=== PATIENT | female | born 1990 | race African-American/Black ===

== ENCOUNTER 2020-06-18 00:56 | Outpatient (CLI) | payer OTHER, SELFPAY ==
[2020-06-18 18:46] LABS: SARS-CoV-2 RNA PCR Negative
== END 2020-06-18 00:57 | disposition home or self-care (01) ==
LOC: ANHCOVIDDT 00:56
PROVIDERS: PCP Internal Medicine; Visit Provider Obstetrics & Gynecology
DX: Z01.812 Encounter for preprocedural laboratory examination (principal); Z20.822 Contact with and (suspected) exposure to COVID-19
CPT/HCPCS: C9803; U0003; U0005

== ENCOUNTER 2020-06-21 02:39 | Day surgery (SDC) | payer OTHER, MEDICAID, SELFPAY ==
[2020-06-11 16:30] VITALS: BMI 30.7
[2020-06-21] VITALS (11 sets, daily range): BP systolic 113–137; BP diastolic 68–85; PULSE 62–88; RESP 12–16; TEMP 36.2–36.3; O2SAT 94–100
--- NOTE | 2020-06-21 10:51 | WPDHPUPDATE1 ---
History and Physical Update Update Date/Time: 06/21/20 10:51 History and Physical has been reviewed, including an updated exam of the patient. There are NO changes in the patient's condition. Risks, benefits, and alternatives have been discussed and questions answered. Patient agrees to proceed with procedure.
[2020-06-21] MEDS: ACETAMINOPHEN 500 MG TABLET 1000 MG PO (11:37)
[2020-06-21] MEDS: LACTATED RINGERS 1,000 ML 30 ML IV CONT ×2 (12:00→14:31)
[2020-06-21] MEDS: KETOROLAC 15 MG/ML VIAL (*BKC) IV PUSH (12:03)
--- NOTE | 2020-06-21 12:40 | P.PNAN_ITS ---
Anes - Initial Pre Proc Eval Procedure: Operation Date: 06/21/20 13:45 Proposed Procedures p Laparoscopic Bilateral Salpingectomy, Hysteroscopy with Alisia Endometrial Ablation - Lnida Ibarra MD Date/Time: 06/21/20 12:40 Surgeon: Linda Ibarra MD Pre Op Diagnosis: menorrhaghia, pelvic pain Patient Data Age: 30 Gender: F Height: 5 ft 6 in Weight: 85.2 kg Last Vital Signs Temp 97.3 F L 06/21/20 11:34 Pulse 79 06/21/20 11:34 Resp 16 06/21/20 11:34 BP 119/76 06/21/20 11:34 Pulse Ox 100 06/21/20 11:34 Allergies Allergy/AdvReac Type Severity Reaction Status Date / Time No Known Allergies Allergy Unknown Unverified 06/21/20 11:34 Home Medications Medication Instructions Recorded Confirmed Type albuterol 90 mcg INHALATION PRN PRN 06/11/20 06/11/20 History diclofenac sodium 75 mg PO DAILY 06/11/20 06/21/20 History prednisone 10 mg PO DAILY 06/11/20 06/21/20 History Patient hx anesthesia problems: none Family hx anesthesia problems: none [facility] Past Medical History Medical History (Updated 06/21/20 @ 12:37 by Kody Clinton MD) Asthma Social History Social History Smoking status: Never smoker Substance use: current Substance use type: marijuana Other substance usage details: DAILY MARIJUANA USE Living arrangements: with family Spiritual care concerns: No Anes - Eval Final PreProcedure Day of Procedure 06/21/20 12:40 Patient weight: overweight Heart: regular rate and rhythm Lungs: clear to auscultation Airway: Mallampati scale class II Neurological: alert and oriented Last oral intake: >/= 8 hours ASA classification: II Emergent: no Anesthetic plan: proceed Anesthesia type and monitoring: general ETT and standard monitoring Informed Consent: The patient's anesthetic plan and its attendant risks and benefits were discussed with the patient/family/POA. Questions were solicited and answers provided to the satisfaction of the patient/family/POA.
--- NOTE | 2020-06-21 14:24 | SUR.OPER ---
450ml ns in, 400ml ns out. aware
--- NOTE | 2020-06-21 14:30 | P.OP_ITS ---
Procedure Note - Detailed Date of procedure: 06/21/20 Pre-op diagnosis: menorrhaghia, pelvic pain Essure coils Post-op diagnosis: same Procedure performed: Laparoscopic bilateral salpingectomy with removal of Essure coils, Endometrial Ablation Description of procedure: Patient was taken the operating room. She has prepped draped in the dorsal lithotomy position after induction of general anesthesia. A 5 mm abdominal incision was made in left upper quadrant of the abdomen with scalpel. A 5 mm trocars inserted the intra-abdominal cavity under direct visualization of the scope. Pneumoperitoneum was achieved. A 5 mm periumbilical incision was made using a scalpel on the abdominal scan. A 5 mm trocar was inserted the intra-abdominal cavity under visualization of the scope. A 5 mm left lower quadrant incision was made with a scalpel a 5 mm trocar was inserted intra-abdominal cavity direct visualization the scope. Fallopian tubes were removed. This was performed using cautery and scissors and blunt dis section. Fallopian tissue taken at the left lower quadrant trocar site. The cornual tubal stump was dissected open and the coils were removed bilaterally. This was done with sharp and blunt dissection using cautery. Our attention was then turned to the endometrial ablation portion of the procedure. A speculum was placed in the vagina. The cervix was grasped with a tenaculum. The cervix was dilated to approximately 8 mm with Carter dilators. The hysteroscope was inserted. And the below findings were noted. Measurements of the cervix were taken using the uterine sound and the hysteroscope. The intrauterine cavity measurements were entered into the hand piece of the device. The device was inserted the intrauterine cavity. The array was expanded. The balloon cuff was inflated. The uterus was airtight. The initial handpiece was been it during the insertion, it did pass the safety test but failed during the ablation almost immediately. A new device was obtained and prepared. It was inserted as done previously. The energy and safety cycles within initiated. They were completed under 3 minutes. The balloon cuff was collapsed, the array was collapsed, and the device was removed the uterine cavity. the hysteroscope was reinserted and the cavity was well desiccated, it was clearly observed. Hysteroscope was withdrawn. The tenaculum was removed. The speculum was aline lisa. The patient tolerated the procedure well. She was taken to recover room in stable condition. Anesthesia: GETA Surgeon: Linda Ibarra MD Estimated blood loss (mL): 10 Drains: No Packing: No Pathology: none sent Complications: No immediate complications Condition: stable Disposition: PACU Findings: Normal female pelvic anatomy. Bilateral Essure coils, normal appearing ovaries and uterus. Uterus was enlarged to about 10 cm.
[2020-06-21] MEDS: ONDANSETRON INJ 4 MG/2 ML VIAL IV PUSH ×2 (15:39→16:23)
[2020-06-21] MEDS: SCOPOLAMINE 1.5 MG PATCH TRANSDERM (17:05)
[2020-06-21] MEDS: diphenhydrAMINE HCl INJ 50 MG/ML VIAL 12.5 MG IV PUSH ×2 (17:06→17:18)
== END 2020-06-21 17:50 | disposition home or self-care (01) ==
PROVIDERS: PCP Internal Medicine; Visit Provider Obstetrics & Gynecology
PROC: 0UDB8ZZ Extraction of Endometrium, Via Natural or Artificial Opening Endoscopic (ICD-10-PCS; CPT 58558; principal; 2020-06-21 13:45)
DX: R10.12 Left upper quadrant pain (principal); N92.0 Excessive and frequent menstruation with regular cycle; Z79.51 Long term (current) use of inhaled steroids; J45.909 Unspecified asthma, uncomplicated; F12.10 Cannabis abuse, uncomplicated
CPT/HCPCS: 58563; 58661; 88302; 88305; A9270; C9803; J1100; J1200; J1885; J2250; J2405; J2704; J2710; J3010; J7120; U0003; U0005

== ENCOUNTER → 2021-03-26 01:28 | Outpatient (CLI) | payer OTHER, MEDICAID, SELFPAY ==
[2021-03-26 11:29] LABS: Basophils Percent Auto 0.3 % (0.2-1.2); Eosinophils Absolute Auto 0.1 K/mm3 (0-0.3); Eosinophils Percent Auto 1.1 % (0-4.4); Hematocrit 39.3 % (37.0-47.0); Hemoglobin 13.1 g/dL (12.0-15.0); Immature Granulocyte Absolute 0.02 K/mm3 (0.00-0.031); Immature Granulocyte Percent A 0.3 % (0-0.5); Lymphocytes Absolute Auto 2.05 K/mm3 (0.9-3.2); Lymphocytes Percent Auto 31.1 % (18.3-44.2); Mean Corpuscular HGB Conc 33.3 g/dl (32-36); Mean Corpuscular Hemoglobin 30.1 pg (26-34); Mean Corpuscular Volume 90.3 fl (80-100); Mean Platelet Volume 10.1 fl (7.4-10.4); Monocytes Absolute Auto 0.6 K/mm3 (0.1-0.6); Monocytes Percent Auto 8.3 % (2.6-8.5); Neutrophils Absolute Auto 3.9 K/mm3 (1.3-6.7); Neutrophils Percent Auto 58.9 % (45.5-73.1); Platelet Count Result 215 k/mm3 (150-375); Red Blood Count 4.35 M/mm3 (4.2-5.4); Red Cell Distribution Width 11.9 % (11.5-14.5); White Blood Count 6.6 K/mm3 (4.5-10.0)
[2021-03-26 18:07] LABS: SARS-CoV-2 RNA PCR Negative
== END ==
PROVIDERS: PCP Internal Medicine; Visit Provider Obstetrics & Gynecology
DX: Z01.812 Encounter for preprocedural laboratory examination (principal); Z20.822 Contact with and (suspected) exposure to COVID-19; N92.0 Excessive and frequent menstruation with regular cycle
CPT/HCPCS: 36415; 85025; 86850; 86900; 86901; C9803; U0003; U0005

== ENCOUNTER 2021-03-30 00:11 | Day surgery (SDC) | payer OTHER, MEDICAID, SELFPAY ==
[2021-03-23 12:53] VITALS: BMI 30.2
--- NOTE | 2021-03-29 11:13 | WPDANESEPPF ---
Anes - Initial Pre Proc Eval Procedure: Operation Date: 03/30/21 07:30 Proposed Procedures p Total Laparoscopic Hysterectomy - Linda Ibarra MD Date/Time: 03/29/21 11:13 Surgeon: Linda Ibarra MD Pre Op Diagnosis: Menorrhagia Patient Data Age: 30 Gender: F Height: 1.68 m Weight: 85 kg Allergies Allergy/AdvReac Type Severity Reaction Status Date / Time No Known Allergies Allergy Unknown Unverified 06/21/20 11:34 Home Medications Medication Instructions Recorded Confirmed Type albuterol 90 mcg INHALATION PRN PRN 06/11/20 03/23/21 History diclofenac sodium 75 mg PO DAILY 06/11/20 03/23/21 History Patient hx anesthesia problems: none Family hx anesthesia problems: none Results Review: All pre-operative results and documents have been reviewed as part of the pre-operative evaluation. [facility] Past Medical History Medical History (Updated 03/29/21 @ 11:14 by Wayne Suárez MD) Asthma Obesity Social History Social History Smoking status: Never smoker Substance use: current Substance use type: marijuana Other substance usage details: DAILY MARIJUANA USE Last use: 03/23/21 Spiritual care concerns: No Anes - Eval Final PreProcedure Day of Procedure 03/29/21 11:13 Patient weight: obese Heart: regular rate and rhythm Lungs: clear to auscultation and normal air movement Airway: Mallampati scale class II Neurological: alert and oriented Last oral intake: >/= 8 hours ASA classification: II Emergent: no Anesthetic plan: proceed Anesthesia type and monitoring: general ETT Results Review: All pre-operative results and documents have been reviewed as part of the pre-operative evaluation. Informed Consent: The patient's anesthetic plan and its attendant risks and benefits were discussed with the patient/family/POA. Questions were solicited and answers provided to the satisfaction of the patient/family/POA.
[2021-03-30] VITALS (10 sets, daily range): BP systolic 107–124; BP diastolic 67–85; PULSE 59–86; RESP 16–22; TEMP 36.3–36.7; O2SAT 94–100; BMI 30.7
[2021-03-30] MEDS: LACTATED RINGERS 1,000 ML 30 ML IV CONT ×2 (06:38→09:49)
[2021-03-30] MEDS: KETOROLAC 15 MG/ML VIAL (*BKC) IV PUSH (06:39)
[2021-03-30] MEDS: ACETAMINOPHEN 500 MG TABLET 1000 MG PO (06:39)
--- NOTE | 2021-03-30 07:13 | WPDHPUPDATE1 ---
History and Physical Update Update Date/Time: 03/30/21 07:13 History and Physical has been reviewed, including an updated exam of the patient. There are NO changes in the patient's condition. Risks, benefits, and alternatives have been discussed and questions answered. Patient agrees to proceed with procedure.
[2021-03-30] MEDS: ceFAZolin 2 GM/D5W 50 ML 2 GM/50 ML BAG IVPB (07:30)
--- NOTE | 2021-03-30 10:09 | W.PM.PROC2 ---
Procedure Note - Detailed Date of Procedure 03/30/21 Pre-op Diagnosis Menorrhagia Post-op Diagnosis same Procedure Performed Total laparoscopic hysterectomy Surgeon Linda Ibarra MD Anesthesia general Indications Severe menometrorrhagia Findings enlarged uterus, normal appearing ovaries Description of Procedure This patient was taken to the operating room. She was prepped and draped in the dorsal lithotomy position after induction of general anesthesia. A 5 mm skin incision was made in the left upper quadrant the abdomen. A 5 mm trocar was inserted into the intrauterine cavity under direct visualization of the scope. Pneumoperitoneum was achieved. A left lower quadrant 11 mm incision was made with scalpel. An 11 mm trocar was inserted into the anterior abdominal cavity under direct visualization the scope. A 5 mm infraumbilical incision was made with a scalpel and a 5 mm trocar was inserted the intra-abdominal cavity under direct visualization of the scope. The uterine manipulator and Coke per were placed. This was done with a speculum. The speculum was placed. The cervix was grasped with a tenaculum. The stay sutures were placed at 3 and 9:00 a.m.. The stay sutures of 0 Vicryl were brought through the appropriately sized Teresa cup. The tip of the MAGALYS manipulator was placed in the intrauterine cavity. The cup was slid into place around the cervix and into the fornices. It was locked into place. The sutures were then wrapped around the handle and tied under tension. Bilateral ureteral lysis was performed. This was done from the pelvic brim down to the uterine artery. This was done with careful dissection using sharp and blunt dissection. In a stepwise fashion along the lateral aspects of the uterus the suspensory ligament of the ovary, round ligament and broad ligaments were cauterized transected down to the level of the uterine arteries in a stepwise fashion. A bladder flap was created as the bladder was moved distally to the end of the cervix and over the Teresa cup. The bilateral uterine arteries were cauterized and transected. Colpotomy was then performed. In a circumferential fashion the vagina was transected using unipolar cautery. The incision was made down on the Teresa. The uterus and cervix were taken out through the vagina. A pneumo occluder was placed in the vagina. The vaginal cuff was closed with a 0 V lock suture. The pelvis was irrigated with copious amounts antibiotic irrigation. The ureters were again examined and found to be intact and flowing freely under the uterine arteries into the bladder. The bladder was intact. It was examined directly. The vagina was irrigated with Betadine solution after removal of the Pneumo occluder. The patient was taken to recovery room. She was stable condition. Sponge lap and needle counts were correct x2. Estimated Blood Loss -100.0 Urine Output -800.0 Drains Yes Packing No Pathology yes Complications No immediate complications Condition stable Disposition floor
[2021-03-30] MEDS: ONDANSETRON INJ 4 MG/2 ML VIAL IV PUSH (14:27)
[2021-03-30] MEDS: DEXTROSE 5%/0.45% SOD CHL 1,000 ML 125 ML IV CONT ×2 (14:30→19:28)
[2021-03-30] MEDS: KETOROLAC 30 MG/ML VIAL (*BKC) IV PUSH (14:30)
[2021-03-30] MEDS: HYDROcodone/acetaminophen (*CRX) 10-325 MG TABLET 1 TAB PO (17:51)
[2021-03-30] MEDS: IBUPROFEN 600 MG TABLET PO (20:08)
[2021-03-31 00:09] VITALS: BP 118/67; PULSE 88; RESP 18; TEMP 36.6; O2SAT 100
[2021-03-31] MEDS: IBUPROFEN 600 MG TABLET PO (03:44)
[2021-03-31] MEDS: HYDROcodone/acetaminophen (*CRX) 5-325 MG TABLET 1 TAB PO (03:45)
[2021-03-31 03:57] VITALS: BP 123/86; PULSE 72; RESP 18; TEMP 36.6; O2SAT 100
[2021-03-31 07:00] VITALS: BP 132/68; PULSE 91; RESP 18; TEMP 37.2; O2SAT 100
--- NOTE | 2021-03-31 08:26 | PM.GYNPNOP ---
COMPENSATION MANAGER - A/P Postoperative Procedures: Procedures Operation Date: 03/30/21 07:30 Actual Procedure Side Surgeon p Total Laparoscopic Hysterectomy Not Applicable Linda Ibarra MD Postoperative day: 1 Postoperative status: doing well Postoperative plan: see orders Time Spent With Patient Time: Total time spent is greater than 50% in coordination of care (as documented) at patient's floor/unit and/or counseling patient: Time with patient: less than 15 minutes COMPENSATION MANAGER- PN:Subj Post-Op Subjective Date/time seen: 03/31/21 08:26 Subjective: patient reports feeling better, patient has no complaints and pain is well controlled Exam Const: General: healthy appearing, comfortable and no acute distress Resp: Auscultation: clear to auscultation bilaterally, no rales, no rhonchi and no wheezes Cardio: Rate: regular rate Heart sounds: no click, no murmurs and no rubs GI: Inspection: non-distended Auscultation: normal bowel sounds Extrem: General: normal to inspection, no pedal edema and no calf tenderness COMPENSATION MANAGER - PN: Obj Data Vital Signs Vital Signs: Vital Signs - 24 hr 03/30/21 09:49 03/30/21 10:00 03/30/21 10:15 Temperature 97.8 F Pulse Rate 77 59 L 67 Respiratory Rate 22 H 20 17 Blood Pressure 110/74 111/83 107/71 Pulse Oximetry 99 100 94 03/30/21 10:30 03/30/21 10:45 03/30/21 11:00 Temperature Pulse Rate 71 73 79 Respiratory Rate 18 18 18 Blood Pressure 119/85 111/71 108/67 Pulse Oximetry 94 100 100 03/30/21 11:30 03/30/21 17:00 03/30/21 19:45 Temperature 98.1 F 97.8 F Pulse Rate 79 86 73 Respiratory Rate 18 16 18 Blood Pressure 111/72 124/76 Pulse Oximetry 100 99 100 03/31/21 00:09 03/31/21 03:57 Temperature 98 F 97.8 F Pulse Rate 88 72 Respiratory Rate 18 18 Blood Pressure 118/67 123/86 Pulse Oximetry 100 100 Intake/Output Intake/Output: Intake & Output 03/28/21 03/29/21 03/30/21 03/31/21 23:59 23:59 23:59 23:59 Intake Total 1200 400 Output Total 1999 1075 Balance -800 -675 Meds/Results Medications: Active Medications Generic Name Dose Route Start Last Admin Trade Name Freq PRN Reason Stop Dose Admin Hydrocodone Bitart/Acetaminophen 1 tab 03/30/21 11:03 03/31/21 03:45 Hydrocodone/Acetaminophen (*Crx) 5-325 Mg Tablet PO 1 tab Q3H PRN Administration Pain Rated 5 or Less Hydrocodone Bitart/Acetaminophen 1 tab 03/30/21 11:03 03/30/21 17:51 Hydrocodone/Acetaminophen (*Crx) 10-325 Mg Tablet PO 1 tab Q3H PRN Administration Pain Rated 6 or Greater Albuterol 1 puff 03/30/21 11:24 Albuterol Sulfate (*Sp) Aerosol 1 Puff INHALATION PRN PRN Shortness Of Breath Dextrose/Sodium Chloride 1,000 mls @ 125 mls/hr 03/30/21 11:03 03/30/21 19:28 Dextrose 5% Sodium Chloride 0.45% IV CONT 125 mls/hr .Q8H KEVIN Administration Ibuprofen 600 mg 03/30/21 11:03 03/31/21 03:44 Ibuprofen 600 Mg Tablet PO 600 mg Q6H PRN Administration Cramping Ketorolac Tromethamine 30 mg 03/30/21 11:03 03/30/21 14:30 Ketorolac 30 Mg/Ml Vial (*Bkc) IV PUSH 04/04/21 11:02 30 mg Q6H PRN Administration Pain Rated 4-6 Naloxone HCl 0.1 mg 03/30/21 11:03 Naloxone Hcl 0.4 Mg/Ml Vial IV PUSH Q2M PRN Respiratory rate less than 10 Ondansetron HCl 4 mg 03/30/21 11:03 03/30/21 14:27 Ondansetron Inj 4 Mg/2 Ml Vial IV PUSH 4 mg Q6H PRN Administration Nausea And Vomiting
== END 2021-03-31 12:15 | disposition home or self-care (01) ==
LOC: ANHSURGERY 05:51 → ANHOB2 03-31 08:28 → ANHSURGERY 03-31 12:34 → ANHOB2 03-31 12:34
PROVIDERS: PCP Internal Medicine; Visit Provider Obstetrics & Gynecology
PROC: 0UT9FZZ Resection of Uterus, Via Natural or Artificial Opening With Percutaneous Endoscopic Assistance (ICD-10-PCS; CPT 58570; principal; 2021-03-30 07:30)
DX: N92.0 Excessive and frequent menstruation with regular cycle (principal); N73.6 Female pelvic peritoneal adhesions (postinfective); N85.2 Hypertrophy of uterus; Z90.79 Acquired absence of other genital organ(s); J45.909 Unspecified asthma, uncomplicated; E66.9 Obesity, unspecified; Z68.30 Body mass index [BMI] 30.0-30.9, adult; Z79.51 Long term (current) use of inhaled steroids; Z20.822 Contact with and (suspected) exposure to COVID-19
CPT/HCPCS: 58570; 36415; 85025; 86850; 86900; 86901; 88307; 99199; A9270; C9803; J0330; J0690; J1170; J1885; J2250; J2270; J2405; J2704; J7120; U0003; U0005

== ENCOUNTER 2021-08-26 22:55 | Emergency (ER) | payer OTHER, MEDICAID, SELFPAY ==
--- NOTE | ~2021-08-26 | CT_ITS ---
EXAMINATION: CT brain wo con DATE: 08/27/2021 00:38 INDICATION: Head injury TECHNIQUE: Computed tomography (CT) of the head was performed without intravenous contrast. Sagittal and coronal reconstructions were performed. The mA was adjusted according to patient size. Iterative reconstruction technique was employed. The dose-length product was 605.33 mGy-cm. COMPARISON: None FINDINGS: No fracture. No acute intracranial hemorrhage, acute infarction or abnormal extra axial fluid collect ion. Ventricles are normal and symmetric. No mass/mass effect. The orbits, paranasal sinuses and mast oid air cells are normal. IMPRESSION: 1. Normal head CT. Reviewed, dictated and finalized at location A. IMPRESSION: 1. Normal head CT.
--- NOTE | ~2021-08-26 | CT_ITS ---
EXAMINATION: 1. CT facial & cervical spine wo DATE: 08/27/2021 00:39 INDICATION: Head injury post fall TECHNIQUE: 1. Computed tomography (CT) of the maxillofacial region and of the cervical spine were performed with out intravenous contrast. Sagittal and coronal reconstructions of both regions were obtained. Automat ed exposure control and iterative reconstruction technique were employed. The dose-length product was 455.64 mGy-cm. COMPARISON: None. FINDINGS: Maxillofacial CT: Negligible step-off along the suture at the right nasal bone without overlying soft tissue swelling s uggesting this is chronic. No maxillofacial fractures. Orbits are normal. Mastoid air cells, middle e ar cavities and paranasal sinuses are clear. Soft tissue swelling and shallow skin laceration at the right side of the lower lip. Cervical spine CT: Straightening of the normal cervical lordosis which is likely positional. Vertebral body and disc hei ghts are normal. Cervical facet and uncovertebral joints are normal. Mild facet osteoarthritis in the upper thoracic spine. No central canal or neural foraminal stenosis. Slice airway and apices of lung s are clear. Cervical soft tissues are unremarkable. IMPRESSION: 1. Likely chronic minimal step-off along the suture at the right nasal bone without overlying soft ti ssue swelling to suggest acute injury. No maxillofacial fractures. 2. Likely positional straightening of the normal cervical lordosis. Otherwise normal cervical spine. Reviewed, dictated and finalized at location A. IMPRESSION: 1. Likely chronic minimal step-off along the suture at the right nasal bone wit hout overlying soft tissue swelling to suggest acute injury. No maxillofacial f ractures. 2. Likely positional straightening of the normal cervical lordosis. Otherwise n ormal cervical spine.
[2021-08-26 22:57] VITALS: BP 121/67; PULSE 88; RESP 18; TEMP 35.8; O2SAT 97
--- NOTE | 2021-08-27 00:04 | ED.WOUNDLAC ---
HPI - Wound/Laceration General Chief Complaint: Wound/Laceration Stated Complaint: needs stitches Time Seen by Provider: 08/26/21 23:46 History of Present Illness HPI narrative: 31-year-old female presents to emergency room complaints of lower lip laceration. Patient states that she was drinking this evening, went outside vomit and then proceeded to pass out. Patient states that she struck her head on the ground. Patient also complains of a right facial pain. Related Data Home Medications Medication Instructions Recorded Confirmed albuterol 90 mcg INHALATION PRN PRN 06/11/20 03/30/21 diclofenac sodium 75 mg PO DAILY 06/11/20 03/30/21 Allergies Allergy/AdvReac Type Severity Reaction Status Date / Time No Known Allergies Allergy Unknown Verified 08/26/21 23:00 Review of Systems Review of Systems: CONSTITUTIONAL: Denies fever, chills, or sweats. EYES: Denies visual changes, redness, or discharge. ENT: Denies rhinorrhea, congestion, sore throat, or otalgia. CARDIOVASCULAR: Denies chest pain, palpitations, or edema. RESPIRATORY: Denies cough or dyspnea. GASTROINTESTINAL: Denies abdominal pain, nausea, vomiting, or diarrhea. GENITOURINARY: Denies dysuria or hematuria. SKIN: Laceration to lower lip MUSCULOSKELETAL: Reports pain to right side of face NEUROLOGIC: Denies headache, numbness, dizziness, or weakness. PSYCHIATRIC: Denies anxiety or depression. PMFSH Past Medical History Medical History Asthma Obesity Social History Social History Smoking status: Never smoker Substance use: current Substance use type: marijuana Other substance usage details: DAILY MARIJUANA USE Last use: 03/23/21 Spiritual care concerns: No Exam Narrative: GENERAL: Well-appearing, well-nourished, and in no acute distress. HEAD: Normocephalic, tenderness to the right zygoma EYES: PERRLA and EOMI. ENT: Nares clear, no rhinorrhea or epistaxis. Mucous membranes moist. NECK: Supple. No adenopathy or masses. CHEST: Clear to auscultation. No respiratory distress. No wheezes rales or rhonchi HEART: Regular rate and rhythm. No murmur heard. Normal peripheral pulses. ABDOMEN: Soft, nontender, nondistended, normal active bowel sounds. EXTREMITIES: Normal range of motion. No edema. SKIN: Warm, dry, no rash. x2 1 cm lacerations to the lower lip NEURO: No focal deficits. Alert and oriented x3. PSYCH: Normal mood and affect. Course Vital Signs Vital signs: Vital Signs Temperature 35.8 C L 08/26/21 22:57 Pulse Rate 88 08/26/21 22:57 Respiratory Rate 18 08/26/21 22:57 Blood Pressure 121/67 08/26/21 22:57 Pulse Oximetry 97 08/26/21 22:57 Temperature 35.8 C L 08/26/21 22:57 Pulse Rate 88 08/26/21 22:57 Respiratory Rate 18 08/26/21 22:57 Blood Pressure 121/67 08/26/21 22:57 Pulse Oximetry 97 08/26/21 22:57 Procedures Laceration Laceration 1: Date: 08/27/21 Time: 00:53 Site: lip Size (cm): 1 Description: linear Depth: simple, single layer Local Anesthetic: lidocaine 1% and with epi Amount of anesthesia used (mL): 1 ====== Skin Level ====== Skin layer closed with: nylon Size (cm): 6-0 Number of sutures: 2 Technique: simple, interrupted ====== Subcutaneous Layer ====== ====== Muscle Layer ====== ====== Tendon Layer ====== Laceration 2: Date: 08/27/21 Time: 00:54 Site: lip Size (cm): 1 Description: linear Local Anesthetic: lidocaine 1% and with epi Amount of anesthesia used (mL): 1 ====== Skin Level ====== Skin layer closed with: nylon Size (cm): 6-0 Number of sutures: 2 ====== Subcutaneous Layer ====== ====== Muscle Layer ====== ====== Tendon Layer ====== MDM - Wound/Laceration
[2021-08-27 02:03] VITALS: BP 113/62; PULSE 73; RESP 14; O2SAT 97
== END 2021-08-27 02:04 | disposition home or self-care (01) ==
PROVIDERS: Emergency Provider Nurse Practitioner Family; PCP Internal Medicine
DX: S01.511A Laceration without foreign body of lip, initial encounter (principal); S02.2XXA Fracture of nasal bones, initial encounter for closed fracture; J45.909 Unspecified asthma, uncomplicated; E66.9 Obesity, unspecified; Z68.30 Body mass index [BMI] 30.0-30.9, adult; W18.39XA Other fall on same level, initial encounter
CPT/HCPCS: 12011; 70450; 70486; 72125; 99284

== ENCOUNTER 2025-05-04 08:33 | Outpatient (CLI) | payer OTHER, SELFPAY ==
--- NOTE | 2025-05-04 | S_PTH ---
PATIENT: Milagros Herbert LOC: [facility] U#:[id number] AGE/SX: 35/F ROOM: RE05/04/[address]: Adolph Moore MD : 1990 BED: DIS: 05/04/2025 SPEC #: [id number] RECD: 05/05/25 08:49 STATUS: ENRRIQUE REQ #: [id number] BENOIT: 05/04/25 00:[address]: Adolph Moore DEPT: [facility] Surgical RECD BY: Evelyne Dyole ENTERED: 05/05/25 08:49 SP TYPE: Surgical OTHR DR: Van WongMD Tissues: A - Gastric Biopsy B - Gastric Biopsy Procedures: Hematoxylin and Eosin Stain Gross and Microscopic Level 4
--- OUTSIDE RECORDS SUMMARY | 2025-05-05 08:42 | XMS_ITS | Clinical Summary ---
Author Organization [facility] Address [address] [place] [address] Care Team Providers Care Padder Cushion Name Role Phone Unavailable Primary Care Provider Unavailabl e Source Comments [facility],non-owned Affiliates and Associated Physician Practices is amultiple site organization consisting of ambulatory clinics and hospital sitesin [place], [place], [place] and [place]. This disclosure is being madepursuant to the Care Everywhere program and may not contain all information available regarding this patient. Last updated 18.[facility] Allergies No known active allergies Encounters Date Type Department Care Team Description 03/31/2025 11:54 AM CDT - 03/31/2025 1:29 PM CDT Emergency [facility] EMERGENC[facility]PARTMENT [address] [place] [id number] Discharge Disposition: Left Against Medical Advice/Discontinued Care 03/31/2025 Travel from Last 3 Months Social History Tobacco Use Types Packs/Day Years Used Date Smoking Tobacco: Never Assessed Comments Unknown Sex and Gender Information Value Date Recorded Sex Assigned at Not on file Legal Sex Female 6:30 PM SAP SECURITY CONSULTANT Gender Identity Not on file Sexual Orientation [...] file Group ID:Not on file Type:Medicaid Address: [address]
--- OUTSIDE RECORDS SUMMARY | 2025-05-05 08:42 | XMS_ITS | Clinical Summary ---
Author Organization [facility] [place] Address [address] [place] [address] Care Team Providers Care Roller Print Tender Name Role Phone Van Wong MD Primary Care Provider [phone] Olga Zendejas ROUGH ROUNDER MACHINE Unavailable Allergies No known active allergies Medications diclofenac [...] 05/10/2020 Assessment & Plan (05/10/2020 9:40 AM CARTON MARKER MACHINE): Patient provides a 9 month history of [...] on file Legal Sex Female 2:19 AM CARTON MARKER MACHINE Gender Identity Not on file Sexual Orientation [...] patient's age to complete this topic Insurance [facility] H[facility]/PPO Address: [address] [place], [place] [id number] [employer] [facility] CHOICE PLUS [facility] HMO/PPO Address: [id number] [place], [place] [phone] Care Teams Roller Print Tender Relationship Specialty Start Date End Date Van Wong MD PCP - General Internal Medicine 04/05/20 Olga Zendejas NP [address] [place] [address] Nurse Practitioner Obstetrics and Gynecology 12/19/24
--- OUTSIDE RECORDS SUMMARY | 2025-05-05 08:42 | XMS_ITS | Clinical Summary ---
Author Organization [facility] Address [address] [place] [address] Care Team Providers Care Wire Machine Cutter Name Role Phone Van Wong MD Primary Care Provider [phone] Allergies No known active allergies Medications No known medications Encounters Date Type Department Care Team Description 04/05/2025 11:29 AM IT ARCHITECTURE CONSULTANT - 04/05/2025 12:33 PM IT ARCHITECTURE CONSULTANT Emergency [facility] [place] [address] Baldo Lorenzo, GLEN Blood In Stool Discharge Disposition: Home or Self Care (Routine Discharge) 04/05/2025 Travel from Last 3 Months Social History Tobacco Use Types Packs/Day Years Used Date Smoking Tobacco: Never Smokeless Tobacco: Never Tobacco Cessation:Counseling Given: Not Answered Comments Unknown Sex and Gender Information Value Date Recorded Sex Assigned at Female 04/05/2025 11:29 AM IT ARCHITECTURE CONSULTANT Legal Sex Female 7:05 PM CDT Gender Identity Not on file Sexual Orientation Not on file Last Filed Vital Signs Vital Sign Reading Time Taken Comments Blood Pressure 129/96 04/05/2025 11:28 AM IT ARCHITECTURE CONSULTANT Pulse 86 04/05/2025 11:28 AM IT ARCHITECTURE CONSULTANT Temperature 36.6 C (97.9 F) 04/05/2025 11:28 AM IT ARCHITECTURE CONSULTANT Respiratory Rate 16 04/05/2025 11:28 AM IT ARCHITECTURE CONSULTANT Oxygen Saturation 98% 04/05/2025 11:28 AM IT ARCHITECTURE CONSULTANT Inhaled Oxygen Concentration - - Weight 90.7 kg (200 lb) 04/05/2025 11:28 AM IT ARCHITECTURE CONSULTANT Height 167.6 cm (5' 6) 04/05/2025 11:28 AM IT ARCHITECTURE CONSULTANT Body Mass Index 32.28 04/05/2025 11:28 AM IT ARCHITECTURE CONSULTANT Plan of Treatment Health Maintenance Due Date [...] BLOOD FECAL DIAG STAT 04/05/2025 11:37 AM IT ARCHITECTURE CONSULTANT HC BASIC METABOLIC PANEL STAT 04/05/2025 11:37 AM IT ARCHITECTURE CONSULTANT HC CBC AUTO W/AUTO DIFF STAT 04/05/2025 11:37 AM IT ARCHITECTURE CONSULTANT from Last 3 Months Results * OCCULT BLOOD, FECES (04/05/2025 11:37 AM IT ARCHITECTURE CONSULTANT) OCCULT BLOOD FECAL NEGATIVE NEGATIVE 04/05/2025 12:17 PM IT ARCHITECTURE CONSULTANT [facility] STOOL SPECIMEN / Unknown 04/05/2025 11:37 AM IT ARCHITECTURE CONSULTANT us Baldo Lorenzo UPHOLSTERY MECHANIC BODY FLUIDS AND STOOLS ORDERAB LES Final Result [facility] [address] [place] [address], [place] [phone] * (ABNORMAL) BASIC METABOLIC PANEL (04/05/2025 11:37 AM [facility]) [facility] GLUCOSE 99 70 - 99 MG/DL 04/05/2025 12:11 PM [facility] BUN 11 7 - 18 MG/DL 04/05/2025 12:11 PM [facility] CREATININE S/P/B 0.78 0.55 - 1.02 MG/DL 04/05/2025 12:11 PM [facility] SODIUM S/P/B 138 136 - 145 MMOL/L 04/05/2025 12:11 PM [facility] POTASSIUM S/P/B 3.9 3.5 - 5.1 MMOL/L 04/05/2025 12:11 PM [facility] CHLORIDE S/P/B 107 97 - 115 MMOL/L 04/05/2025 12:11 PM [facility] CO2 29.7 21 - 32 MMOL/L 04/05/2025 12:11 PM [facility] CALCIUM S/P/B 9.3 8.5 - 10.1 MG/DL 04/05/2025 12:11 PM [facility] ANION GAP 1.3(L) 2 - 10 MMOL/L 04/05/2025 12:11 PM [facility] BUN CREATININE RATIO 14.0 6 - 26 04/05/2025 12:11 PM [facility] GFR ESTIMATE >90 >90 ML/MIN/1.7 3 M2 04/05/2025 12:11 PM [facility] Comment: NOTE: eGFR is not calculated for patients <18 years of age or gender unknown. This is an estimated GFR calculation using the new CKD EPI creatinine equation without race and so does not require a correction factor for race. This estimated GFR should not be used for calculating drug doses. 04/05/2025 11:3 7 AM IT ARCHITECTURE CONSULTANT Nael Mccormick PA-C LABORATORY Final Resul t [facility] [address] [place] [address], * CBC W/DIFF AUTOMATED (04/05/2025 11:37 AM IT ARCHITECTURE CONSULTANT) WBC 6.40 4.5 - 11.0 x10'3/uL 04/05/2025 11:49 AM [facility] RBC 4.51 4.20 - 5.40 x10'6/uL 04/05/2025 11:49 AM [facility] HGB 13.4 12.0 - 16.0 G/DL 04/05/2025 11:49 AM [facility] HCT 39.3 38.0 - 48.0 % 04/05/2025 11:49 AM [facility] MCV 87.1 81.0 - 99.0 FL 04/05/2025 11:49 AM [facility] MCH 29.7 27.0 - 31.0 PG 04/05/2025 11:49 AM [facility] MCHC 34.1 32.0 - 36.0 G/DL 04/05/2025 11:49 AM [facility] RDW 11.8 11.5 - 14.5 % 04/05/2025 11:49 AM [facility] PLT 226 130 - 400 x10'3/uL 04/05/2025 11:49 AM [facility] MPV 10.1 9.3 - 12.2 FL 04/05/2025 11:49 AM [facility] DIFFERENTIAL TYPE AUTOMATED DIFFERENTIAL 04/05/2025 11:49 AM [facility] NEUTROPHILS % 56.4 % 04/05/2025 11:49 AM [facility] LYMPHOCYTES % 34.8 % 04/05/2025 11:49 AM [facility] MONOCYTES % 7.7 % 04/05/2025 11:49 AM [facility] EOSINOPHILS 0.6 % 04/05/2025 11:49 AM [facility] BASOPHILS 0.2 % 04/05/2025 11:49 AM [facility] IMMATURE GRANS % 0.3 % 04/05/20 11:49 AM [facility] ABS. NEUTROPHILS 3.61 1.80 - 7.70 x10'3/uL 04/05/2025 11:49 AM [facility] ABS. LYMPHOCYTES 2.23 1.00 - 4.80 x10'3/uL 04/05/2025 11:49 AM [facility] ABS. MONOCYTES 0.49 0.24 - 0.86 x10'3/uL 04/05/2025 11:49 AM [facility] ABS. EOSINOPHILS 0.04 0.04 - 0.36 x10'3/uL 04/05/2025 11:49 AM [facility] ABS. BASOPHILS 0.01 0.01 - 0.08 x10'3/uL 04/05/2025 11:49 AM [facility] ABS. IMMATURE GRANULOCYTES 0.02 0.00 - 0.49 x10'3/uL 04/05/2025 11:49 AM [facility] 04/05/2025 11:3 7 AM IT ARCHITECTURE CONSULTANT us Nael Mccormick PA-C LABORATORY Final Resul t [facility] [address] [place] [address], [place] [phone] from Last 3 Months Insurance [facility] Care Teams Wire Machine Cutter Relationship Specialty Start Date End Date Van Wong MD [address] [place] [address] PCP - General INTERNAL MEDICINE 04/05/25
--- OUTSIDE RECORDS SUMMARY | 2025-05-05 08:42 | XMS_ITS | Data Portability ---
Author Organization [place] - [facility] [place], Main Office Address [address] [place] [address] Care Team Providers Care Line Palletizer Name Role Phone SAMANTHA WONG Primary Care Provider SAMANTHA WONG Referring Provider [phone] Assessment Encounter Date Assessment Date Assessment LastModified by Organization Details LastModified Time 08/29/2022 08/29/2022 Patient returns shoulder pain left. She has had pain in both shoulders the pain has returned again of the left shoulder unfortunately she has never got quite better she is weak in abduction external rotation is pain with overhead motion has failed conservative treatment she has tried medicine therapy cortisone exercise time. At this point I think she would benefit from MRI scan to rule out any rotator cuff pathology I will see her back after that is done I reinjected her per her request with 20 mg Kenalog 4 cc 1% lidocaine in the subacromial space of the left shoulder. [email or web address] Not available 08/29/2022 16:10:56 09/07/2022 09/07/2022 Patient returns shoulder pain left. She has an MRI scan that demonstrates straits potentially a labral tear. I reviewed the MRI report and the pictures with the patient in detail comparing the right and left shoulders as well. We will concern is the fact the head looks posteriorly located on the glenoid I think she has some instability there. She has had pain and instability of both shoulders. I think at this point her options are to live with that other option would be opinion to see whether arthroscopic intervention debridement her stabilization of the labrum would be helpful. I will ask Dr. Faye to take a look and see what he thinks. She has failed conservative treatment today medicine therapy cortisone exercise time both shoulders. [email or web address] Not available 09/07/2022 11:21:59 09/11/2022 09/11/2022 32-year-old patient presents today with left shoulder pain. When she was 12 years old she had a dislocation but did not have any issues afterwards. About 4 years ago she began having pain on the left side without new injury. She states that pain is typically constant but hurts worse at night. In the past she has tried physical therapy and cortisone injection. Her last injection was 2 weeks ago. She states that it helps some but she still feels pain. She also occasionally has pain in the right shoulder that is not as bad as her left. She currently works as a high school french teacher. She is right-handed. Review of systems per patient questionnaire Imaging: MRI of the left shoulder this shows a posterior labral tear. Also some rotator cuff tendinitis. No fracture or dislocation. Preserved joint space. MRI of right shoulder showed some rotator cuff tearing. Physical exam: No tenderness to palpitation. Range of motion 140/40/upper lumbar. She has 4 in 5 strength with rotator cuff testing, negative belly press. Positive Jobes. Positive Obriens. Negative Neer, Cifuentes. Negative Speed, Yergason's. Positive apprehension. Neurovascular intact. Today we discussed treatment options for her left shoulder. She does not feel like she is ready to take the surgical route at this time. She states she is not done physical therapy since last year and would like to try that again. We will place an order for physical therapy of bilateral shoulders. We encouraged her to continue to take anti-inflammator y medications. We will see her back after physical therapy to check her progress. She is in agreement with this plan. [email or web address] Not available 09/11/2022 12:16:38 Plan of Treatment Reminders Order Date Submit Date Provider Last Modified By Organization Details Last Modified Time Details Appointments New Patient 15 2025 02:30P Mik Gutierrez MD Not available Not available Not available Lab None recorded. Referral physical therapist referral - Please call pt to schedule for north shoulder. Thanks 2022 023 [email or web address] 1 [facility], [address] [place], [address], 10/20/2022 08:48:20 Procedures injection /aspirati on joint/bur sa (PROC) - in office procedure , administe red by provider 2022 023 [email or web address] In-Office Order, Internal Use Only DO Not Attach Compendium DO Not Attach Compendium, Do Not Delete/merge, [id number] 08/29/2022 15:41:23 Surgeries None recorded. Imaging XR, shoulder 2022 023 [email or web address] [facility], [address] [facility] [address], [place], [address], 08/29/2022 16:17:58 MRI, shoulder, w/o contrast 2022 023 [facility], [address], [place], [address], 09/07/2022 08:57:27 Medication Orders Kenalog 10 mg/mL suspensio n for injection [address] [id number], [address], [place], [id number], 08/29/2022 15:52:12 ropivacai ne (PF) 5 mg/mL (0.5 %) injection solution [address] [id number], [address], [place], [id number], 08/29/2022 15:52:12 diclofena c sodium 75 mg tablet,de layed release 2022 023 [place] [address] [address] [id number], [address], [place], [id number], 08/29/2022 16:09:55 Patient TargetsNo targets recorded. Patient InstructionsNo instructions recorded. Reason for Referral Physical Therapist Referral for Bilateral shoulder joint pain North shoulder Please call pt to schedule for north shoulder. Thanks Referring Physician: Arielle Horvath, Orthopedic Surgery, Encounter Date: 09/11/2022 Results Created Date Observation Date Name Description Value Unit Range Abnormal Flag Note LastModifiedBy Organization Detail LastModifiedTime 04/04/2004/04/2025 CBC/C OMPLE TE BLD COUNT W/DIF F white blood cells 6.4 x10'3 /uL 4.2-10 .8 Not Available [facility] (Lab) [address] [place], [address], 04/04/2025 13:23:39 04/04/20 25 04/04/2025 CBC/C OMPLE TE BLD COUNT W/DIF F red blood cells 4.53 x10'6 /uL 4.10-5 .80 Not Available [facility] (Lab) [address] [place], [address], 04/04/2025 13:23:39 04/04/20 25 04/04/2025 CBC/C OMPLE TE BLD COUNT W/DIF F hemoglobin 13.6 g/dL 13.2-1 7.0 Not Available [facility] (Lab) [address] [place], [address], 04/04/2025 13:23:39 04/04/20 25 04/04/2025 CBC/C OMPLE TE BLD COUNT W/DIF F hematocrit 40.1 % 39.3-5 0.0 Not Available [facility] (Lab) [address] [place], [address], 04/04/2025 13:23:39 04/04/20 25 04/04/2025 CBC/C OMPLE TE BLD COUNT W/DIF F mean red cell volume 88.5 fL 80.0-9 7.0 Not Available [facility] (Lab) [address] [place], [address], 04/04/2025 13:23:39 04/04/20 25 04/04/2025 CBC/C OMPLE TE BLD COUNT W/DIF F mean red cell hemoglobin 30.0 pg 27.0-3 3.0 Not Available [facility] (Lab) [address] [place], [address], 04/04/2025 13:23:39 04/04/20 25 04/04/2025 CBC/C OMPLE TE BLD COUNT W/DIF F mean RBC HGB concentratio n 33.9 g/dL 31.0-3 6.0 Not Available [facility] (Lab) [address] [place], [address], 04/04/2025 13:23:39 04/04/20 25 04/04/2025 CBC/C OMPLE TE BLD COUNT W/DIF F red cell distribution width 11.7 % 11.8-1 5.5 low Not Available [facility] (Lab) [address] [place], [address], 04/04/2025 13:23:39 04/04/20 25 04/04/2025 CBC/C OMPLE TE BLD COUNT W/DIF F platelets 228 x10'3 /uL 150-40 0 Not Available [facility] (Lab) [address] [place], [address], 04/04/2025 13:23:39 04/04/20 25 04/04/2025 CBC/C OMPLE TE BLD COUNT W/DIF F mean platelet volume 9.7 fL 9.0-12 .4 Not Available [facility] (Lab) [address] [place], [address], 04/04/2025 13:23:39 04/04/20 25 04/04/2025 CBC/C OMPLE TE BLD COUNT W/DIF F neutrophils 56.2 % 39.0-7 2.0 Not Available [facility] (Lab) [address] [place], [address], 04/04/2025 13:23:39 11/06/23 2404/04/2025 CBC/C OMPLE TE BLD COUNT W/DIF F lymphocytes 35.0 % 16.0-4 7.0 Not Available [facility] (Lab) [address] [place], [address], 04/04/2025 13:23:39 04/04/20 25 04/04/2025 CBC/C OMPLE TE BLD COUNT W/DIF F monocytes 7.2 % 5.0-12 .0 Not Available [facility] (Lab) [address] [place], [address], 04/04/2025 13:23:39 04/04/20 25 04/04/2025 CBC/C OMPLE TE BLD COUNT W/DIF F eosinophils 0.8 % 1.0-7. 0 low Not Available [facility] (Lab) [address] [place], [address], 04/04/2025 13:23:39 04/04/20 25 04/04/2025 CBC/C OMPLE TE BLD COUNT W/DIF F basophils 0.5 % 0.0-2. 0 Not Available [facility] (Lab) [address] [place], [address], 04/04/2025 13:23:39 04/04/20 25 04/04/2025 CBC/C OMPLE TE BLD COUNT W/DIF F immature granulocytes 0.3 % 0.00-0 .50 Not Available [facility] (Lab) [address] [place], [address], 04/04/2025 13:23:39 04/04/20 25 04/04/2025 CBC/C OMPLE TE BLD COUNT W/DIF F neutrophils, absolute count 3.57 x10'3 /uL 1.5-8. 0 Not Available [facility] (Lab) [address] [place], [address], 04/04/2025 13:23:39 04/04/20 25 04/04/2025 CBC/C OMPLE TE BLD COUNT W/DIF F lymphocytes, absolute count 2.22 x10'3 /uL 1.07-3 .43 Not Available [facility] (Lab) [address] [place], [address], 04/04/2025 13:23:39 04/04/20 25 04/04/2025 CBC/C OMPLE TE BLD COUNT W/DIF F monocytes, absolute count 0.46 x10'3 /uL 0.29-0 .99 Not Available [facility] (Lab) [address] [place], [address], 04/04/2025 13:23:39 04/04/20 25 04/04/2025 CBC/C OMPLE TE BLD COUNT W/DIF F eosinophils, absolute count 0.05 x10'3 /uL 0.02-0 .53 Not Available [facility] (Lab) [address] [place], [address], 04/04/2025 13:23:39 04/04/20 25 04/04/2025 CBC/C OMPLE TE BLD COUNT W/DIF F basophils, absolute count 0.03 x10'3 /uL 0.01-0 .08 Not Available [facility] (Lab) [address] [place], [address], 04/04/2025 13:23:39 04/04/20 25 04/04/2025 CBC/C OMPLE TE BLD COUNT W/DIF F immature granulocytes ,absolute 0.02 x10'3 /uL 0.00-0 .05 Not Available [facility] (Lab) [address] [place], [address], 04/04/2025 13:23:39 04/04/20 25 04/04/2025 CBC/C OMPLE TE BLD COUNT W/DIF F nucleated red blood cells 0.0 % -0 Not Available [facility] (Lab) [address] [place], [address], 04/04/2025 13:23:39 04/04/20 25 04/04/2025 CBC/C OMPLE TE BLD COUNT W/DIF F NRBC# 0.00 x10'3 /uL Not Available [facility] (Lab) [address] [place], [address], 04/04/2025 13:23:39 04/04/20 25 04/04/2025 COMPR EHENS CAROLE METAB OLIC PANEL sodium 137 mmol/ L 137-14 5 Not Available [facility] (Lab) [address] [place], [address], 04/04/2025 13:57:36 04/04/20 25 04/04/2025 COMPR EHENS CAROLE METAB OLIC PANEL potassium 4.3 mmol/ L 3.5-5. 1 Not Available [facility] (Lab) [address] [place], [address], 04/04/2025 13:57:36 04/04/20 25 04/04/2025 COMPR EHENS CAROLE METAB OLIC PANEL chloride 104 mmol/ L 98-107 Not Available [facility] (Lab) [address] [place], [address], 04/04/2025 13:57:36 04/04/20 25 04/04/2025 COMPR EHENS CAROLE METAB OLIC PANEL carbon dioxide 28 mmol/ L 22-30 Not Available [facility] (Lab) [address] [place], [address], 04/04/2025 13:57:36 04/04/20 25 04/04/2025 COMPR EHENS CAROLE METAB OLIC PANEL anion gap 9.3 mmol/ L 14-22 low Not Available [facility] (Lab) [address] [place], [address], 04/04/2025 13:57:36 04/04/20 25 04/04/2025 COMPR EHENS CAROLE METAB OLIC PANEL glucose 103 mg/dL 70-99 high Not Available [facility] (Lab) [address] [place], [address], 04/04/2025 13:57:36 04/04/20 25 04/04/2025 COMPR EHENS CAROLE METAB OLIC PANEL BUN 10 mg/dL 8-19 Not Available [facility] (Lab) [address] [place], [address], 04/04/2025 13:57:36 04/04/20 25 04/04/2025 COMPR EHENS CAROLE METAB OLIC PANEL creatinine 0.81 mg/dL 0.66-1 .25 Not Available [facility] (Lab) [address] [place], [address], 04/04/2025 13:57:36 04/04/20 25 04/04/2025 COMPR EHENS CAROLE METAB OLIC PANEL GFR >60 Refer ence Range : [place] ge GFR Healt hy Adult : >60 mL/mi n/1.7 3 m2 Chron ic Kidne y Disea se: 15-60 mL/mi n/1.7 3 m2 Kidne y Failu re: <15/m L/min /1.73 m2 www.n iddk. nih.g ov The MDRD study equat ion has not been valid ated in child sae <18 years of age; pregn ant women ; the elder ly >85 years of age; or in some racia l or ethni c subgr oups, such as [facility] nics. Outsi de the valid ated sharonda eters , estim ated GFR is less accur ate, requi ring clini ruy judgm ent on a case- by-ca se basis . Clini ruy inter preta tion for other races and ages must be made by the clini janett. The MDRD study equat ion has not been valid ated for the evalu ation of serum creat inine relat ed to nutri hermila l statu s or medic ation usage . For perso ns <18 years of age, a pedia tric GFR calcu lator is avail able on the [facility] websi te: https ://barbi angel.guillermo burrows.o eloisa/pr ofess ional s/kdo qi/gf r_cal culat or Not Available [facility] (Lab) [address] [place], [address], 04/04/2025 13:57:36 04/04/20 25 04/04/2025 COMPR EHENS CAROLE METAB OLIC PANEL alkaline phosphatase 58 U/L 38-126 Not Available [facility] (Lab) [address] [place], [address], 04/04/2025 13:57:36 04/04/2004/04/2025 COMPR EHENS CAROLE METAB OLIC PANEL alanine aminotransfe rase 12 U/L 0-35 Not Available [facility] (Lab) [address] [place], [address], 04/04/2025 13:57:36 04/04/20 25 04/04/2025 COMPR EHENS CAROLE METAB OLIC PANEL aspartate aminotransfe rase 18 U/L 15-37 Not Available [facility] (Lab) [address] [place], [address], 04/04/2025 13:57:36 04/04/20 25 04/04/2025 COMPR EHENS CAROLE METAB OLIC PANEL bilirubin, total 0.60 mg/dL 0.20-1 .30 Not Available [facility] (Lab) [address] [place], [address], 04/04/2025 13:57:36 04/04/20 25 04/04/2025 COMPR EHENS CAROLE METAB OLIC PANEL calcium 9.8 mg/dL 8.4-10 .2 Not Available [facility] (Lab) [address] [place], [address], 04/04/2025 13:57:36 04/04/20 25 04/04/2025 COMPR EHENS CAROLE METAB OLIC PANEL total protein 7.4 g/dL 6.3-8. 2 Not Available [facility] (Lab) [address] [place], [address], 04/04/2025 13:57:36 04/04/20 25 04/04/2025 COMPR EHENS CAROLE METAB OLIC PANEL albumin 4.5 g/dL 3.4-5. 0 Not Available [facility] (Lab) [address] [place], [address], 04/04/2025 13:57:36 04/04/20 25 04/04/2025 COMPR EHENS CAROLE METAB OLIC PANEL globulin 2.9 g/dL 2.6-4. 2 Not Available [facility] (Lab) [address] [place], [address], 04/04/2025 13:57:36 04/04/20 25 04/04/2025 COMPR EHENS CAROLE METAB OLIC PANEL A/G ratio 1.6 ratio 1.0-2. 0 Not Available [facility] (Lab) [address] [place], [address], 04/04/2025 13:57:36 04/04/20 25 04/04/2025 LIPID PANEL cholesterol 205 mg/dL 140-19 9 high NIH ANCA NSUS RECOM MENDA TION FOR DEANA STERO L: ADULT CHILD LOW RISK: <200 <170 BORDE RLINE : <200- 239 ----- HIGH RISK: >240 >200 Not Available [facility] (Lab) [address] [place], [address], 04/04/2025 13:57:40 04/04/20 25 04/04/2025 LIPID PANEL triglyceride s 75 mg/dL 0-150 NIH ANCA NSUS REPOR T RECOM MENDA TION FOR TRIGL YCERI DARRELL: ADULT CHILD LOW RISK: <150 ----- BODER LINE: 150-1 99 ----- HIGH RISK: >200 ----- Not Available [facility] (Lab) [address] [place], [address], 04/04/2025 13:57:40 04/04/20 25 04/04/2025 LIPID PANEL HDL cholesterol 52 mg/dL 40- Not Available [facility] (Lab) [address] [place], [address], 04/04/2025 13:57:40 04/04/20 25 04/04/2025 LIPID PANEL LDL cholesterol, calculated 138 mg/dL 0-130 high NIH ANCA NSUS REPOR T RECOM MENDA TIONS FOR LDL: ADULT CHILD LOW RISK <130 <110 (OPTI MAL LDL) <100 ----- BORDE RLINE : 130-1 59 ----- HIGH RISK: >160 >130 A TRIGL YCERI DE RESUL T >400 INVAL IDATE S THE CALCU LATIO N FOR LDL FRACT IONAT ION - THE LDL RESUL T WILL NOT BE REPOR ABELARDO. Not Available [facility] (Lab) [address] [place], [address], 04/04/2025 13:57:40 04/14/20 21 XR, wrist , 3 or more view No observ ation record ed. [id number] [address], [place], [address], 08/02/2022 14:48:40 08/28/19 22 08/27/2021 CT, brain , w/o contr ast No observ ation record ed. [id number] [facility] (Imaging) [address], [place], [address], 08/02/2022 14:48:40 08/30/19 23 XR, shoul ruba No observ ation record ed. [facility] [address], [place], [address], 08/29/2022 16:11:44 09/05/19 MRI shoul ruba lt wo [facility] [address], [place] [address] Patien t Name: MILAGROS WALLACE ion #: [id number] Sex: F : 1989 Locati on: IND Attend ing Physic braden: Karol quintero Physic braden: MP BOYKIN Exam Date: 09/05/19 7:37 AM Exam Name: MRI SHOULD ER LT WO Admitt ing Diagno sis(es ): RADIOL OGY REPORT - FINAL EXAM: MRI SHOULD ER LT WO HISTOR Y: pain dimini shed range of motion COMPAR SUSY: Radiog raph 2022 TECHNI QUE: Multip lanar multis equenc e imagin g of the left should er is perfor med withou t intrav enous contra st. FINDIN GS: Osseou s:Smal l subcho ndral cystic reacti on inferi or coal cager ior aspect of the osseou s labrum . No eviden ce of a fractu re or malali gnment . Joint space: No effusi on Page 1 [facility] 2 [facility] Name[facility] MILAGROS WALLACE ion #: [id number] Sex: F : 1989 Exam Date: 09/05/19 7:37 AM Exam Name: MRI SHOULD ER LT WO Admitt ing Diagno sis(es ): Labrum :See above. Findin gs sugges tive for an inferi or coal cager ior labral tear. AC-ludivina nt:AC joint hypert rophy with mild-t o-mode rate subacr omial outlet narrow ing. Rotato r cuff:N o eviden ce of a partia l or full-t hickne ss tear Bicipi domi labral comple x:Inco mplete ly define d IMPRES ANTONELLA: See above. Create d and electr onical ly signed by: Otoniel moon MD Signed Date: 09/05/19 4:58 PM (CT) Dictat ed by: Otoniel moon MD (CT) (CT) Page [address] (Imaging) [address], [place], [address], 09/04/2022 19:38:05 09/08/19 23 09/04/2022 MRI, jazmin yeh, w/o contr ast No observ ation record ed. [email or web address] [facility] [address], [place], [address], 09/07/2022 08:57:27 Result Notes None recorded. Problems Name Problem SNOMED Code Status Onset Date Resolution Date Notes Provider Name and Address Organization Details Recorded Time Chest wall pain 264485787 Active Not Available [facility] 3 14:46:19 Chronic back pain 550503359 Active Not Available [facility] 3 14:46:19 Constipati on 71763028 Active Not Available [facility] 3 14:46:19 Gastroesop hageal reflux disease 935673342 Active Not Available [facility] 3 14:46:19 Headache 54998174 Active Not Available [facility] 3 14:46:19 Sinusitis 86504910 Active Not Available [facility] 3 14:46:19 Umbilical hernia 593838775 Active Not Available [facility] 3 14:46:20 Partial thickness rotator cuff tear 813551190 Active 2019 Not Available [facility] 3 14:46:19 Pain of left shoulder joint 7450172636349 9109 Active 2022 JENNIFER Steinberg, [place] - [facility] 3 15:20:56 Glenoid labrum tear 251838702 Active 2022 Mp Lazo MD [address], [place], [address] , [place] - [facility] 3 11:21:24 Bilateral shoulder joint pain 0791097781367 9104 Active 2022 Viri Sargent, ATC L null, [facility] [employer] [facility] 3 11:43:21 Problem Notes None recorded. Procedures Surgical History Date Name Laterality Status Provider Name and Address Organization Details Recorded Time 08/30/19 23 Ortho - Cortisone Injection completed Mp Lazo MD [address] [facility], [facility] [address], [place], [address], [facility] [employer] [facility] 08/29/2022 16:10:09 Hysterectomy completed JENNIFER Steinberg [facility] [employer] [facility] 08/29/2022 15:20:30 Imaging Results None recorded. Procedure Notes None recorded. Medical Equipment None Reported. Allergies No known drug allergies Medications Name Sig Start Date Stop Date Status Note LastModified by Organization Details LastModified Time fluconazole 100 mg tablet 10/05 completed Not Available Not Available Not Available azelastine 0.05 % eye drops 07/08 completed Not Available Not Available Not Available prednisone 10 mg tablet 10/05 completed Not Available Not Available Not Available azithromyci n 250 mg tablet use as directed 08/29 completed Not Available Not Available Not Available ibuprofen 800 mg tablet TK 1 T PO Q 6-8 H 03/14 completed Not Available Not Available Not Available Lidocaine Viscous 2 % mucosal solution SWISH AND SPIT 15ML BY MOUTH EVERY 8 HOURS NEEDED 08/29 completed Not Available Not Available Not Available fluconazole 150 mg tablet 10/05 completed Not Available Not Available Not Available hydrocodone 5 mg-acetamin ophen 325 mg tablet TAKE 1 TABLET BY MOUTH EVERY 4-6 HOURS NEEDED FOR PAIN 08/29 completed Not Available Not Available Not Available metronidazo le 0.75 % (37.5 mg/5 gram) vaginal gel 10/05 completed Not Available Not Available Not Available prednisone 10 mg tablets in a dose pack Take 1 tab by mouth, 3 times a day for 3 daysTake 1 tab by mouth 2 times a day for 2 daysTake 1 tab by mouth once a day for 1 day 10/05 completed Not Available Not Available Not Available Microgestin FE 06/23 (28) 1 mg-20 mcg (21)/75 mg (7) tablet TK 1 T PO D 10/05 completed Not Available Not Available Not Available Deep Sea Nasal 0.65 % spray aerosol Take 1 spray 3 times a day by nasal route as needed. 03/01 completed Not Available Not Available Not Available Kenalog 10 mg/mL suspension for injection Take 20 mg by injection route. 2022 active ND: 0003- 0494- 20 Not Available Not Available Not Available Nortrel 0.5/35 (28) 0.5 mg-35 mcg tablet active Not Available Not Available N ot Available cephalexin 500 mg capsule TAKE 1 CAPSULE BY MOUTH EVERY 8 HOURS FOR 7 DAYS 08/31 completed Not Available Not Available Not Available diclofenac sodium 75 mg tablet,terry yed release TAKE 1 TABLET BY MOUTH TWICE DAILY 2022 active Not Available Not Available Not Avai lable hydroxyzine HCl 25 mg tablet 10/05 completed Not Available Not Available Not Available hydrochloro thiazide 25 mg tablet Take 1 tablet every day by oral route as needed. active Not Available Not Available No t Available ergocalcife rol (vitamin D2) 1,250 mcg (50,000 unit) capsule TAKE 1 CAPSULE BY MOUTH EVERY WEEK FOR 12 WEEKS 08/29 completed Not Available Not Available Not Available diazepam 10 mg tablet 10/05 completed Not Available Not Available Not Available methylpredn isolone 4 mg tablets in a dose pack uud 07/08 completed Not Available Not Available Not Available fluticasone propionate 50 mcg/actuati on nasal spray,suspe nsion USE TWO SPRAYS IEN QPM active Not Available Not Available No t Available amoxicillin 875 mg-potassiu m clavulanate 125 mg tablet TAKE 1 TABLET BY MOUTH TWICE DAILY 08/29 completed Not Available Not Available Not Available Ventolin HFA 90 mcg/actuati on aerosol inhaler Inhale 2 puffs every 4 hours by inhalatio n route. active Not Available Not Available No t Available lidocaine (PF) 10 mg/mL (1 %) injection solution In office injection administe red by the provider 08/31 completed ND: 0409- [id number]- [id number] Not Available Not Available Not Available ropivacaine (PF) 5 mg/mL (0.5 %) injection solution Take 20 mg by injection route. 2022 active Not Available Not Available Not Avai lable ID NOW COVID-19 Test Kit TEST DIRECTED TODAY 08/29 completed Not Available Not Available Not Available Vitals Date Recorded Body height Body mass index (BMI) Body weight Provider Name and Address Organization Details Last Updated DateTime 08/29/2022 167.64 cm 29.1 kg/m2 25641.63 g Jennifer Courtney Emmanuel [employer] [facility] 08/29/2022 15:18:56 Date Recorded Body mass index (BMI) Body height Heart rate Body temperature Body weight Systolic And Diastolic Provider Name and Address Organization Details Last Updated DateTime 2 31 kg/m2 167.64 cm 78 /min 97.2 [degF] 33355.7 4 g 110/66 mm[Hg] Not Available [facility] 14:45:20 Date Recorded Body height Body mass index (BMI) Body weight Provider Name and Address Organization Details Last Updated DateTime 09/07/2022 167.64 cm 29.1 kg/m2 87546.63 g Trista Armstrong CNA [employer] [facility] [employer] [facility] 09/07/2022 10:55:28 Date Recorded Body height Body mass index (BMI) Body weight Provider Name and Address Organization Details Last Updated DateTime 09/11/2022 167.64 cm 29.1 kg/m2 72591.63 g Viri Sargent ATC L [employer] [facility] 09/11/2022 11:12:26 Date Recorded Body mass index (BMI) Body height Pain severity - 0-10 verbal numeric rating [Score] - Reported Body weight Provider Name and Address Organization Details Last Updated DateTime 04/14/2021 30.5 kg/m2 167.64 cm 9 03932.96 g Not Available [facility] 08/02/2022 14:45:22 Social History Question Answer Notes LastModified by Organizat ion Details LastModified Time Tobacco Smoking Status Never Smoker Not Available [facility] 08/02/2022 14:44:19 Do You Have An Advance Directive? No MIGRATION.76998 77143 Information not available 08/02/2022 What Is Your Level Of Caffeine Consumption? Occasional MIGRATION.92524 27683 Information not available 08/02/2022 In The 14 Days Before Symptom Onset, Have You Had Close Contact With A Laboratory-confir med COVID-19 While That Case Was Ill? No MIGRATION.47792 16991 Information not available 08/02/2022 In The 14 Days Before Symptom Onset, Have You Had Close Contact With A Person Who Is Under Investigation For COVID-19 While That Person Was Ill? No MIGRATION.50531 47643 Information not available 08/02/2022 What Type Of Diet Are You Following? REGULAR MIGRATION.75564 60849 Information not available 08/02/2022 What Is The Highest Grade Or Level Of School You Have Completed Or The Highest Degree You Have Received? [id number] MIGRATION.56529 29972 Information not available 08/02/2022 Have There Been Any Changes To Your Family Or Social Situation? No MIGRATION.80003 20210 Information not available 08/02/2022 What Is The Fluoride Status Of Your Home? Unknown MIGRATION.46509 34818 Information not available 08/02/2022 Are There Any Guns Present In Your Home? No MIGRATION.05010 66748 Information not available 08/02/2022 Do You Use Insect Repellent Routinely? No MIGRATION.44632 60621 Information not available 08/02/2022 Where Do You Live? [place] MIGRATION.04133 25277 Information not available 08/02/2022 Do You Have A Medical Power Of Triple Air Valve Tester? No MIGRATION.18985 76508 Information not available 08/02/2022 What Was The Date Of Your Most Recent Tobacco Screening? 08/31/2021 MIGRATION.94924 57093 Information not available 08/02/2022 Have You Ever Been Counseled For Unhealthy Alcohol Use? No MIGRATION.59508 84981 Information not available 08/02/2022 Do You Have Any Pets? No MIGRATION.64492 65491 Information not available 08/02/2022 What Is Your Relationship Status? Single MIGRATION.44799 11823 Information not available 08/02/2022 Do You Use Your Seat Belt Or Car Seat Routinely? Yes MIGRATION.58483 66825 Information not available 08/02/2022 Do You Have Smoke And Carbon Monoxide Detectors In Your Home? Yes MIGRATION.25061 63157 Information not available 08/02/2022 Are You Passively Exposed To Smoke? No MIGRATION.11325 91094 Information not available 08/02/2022 Are There Any Smokers In Your House? No MIGRATION.79214 81846 Information not available 08/02/2022 What Types Of Sporting Activities Do You Participate In? None MIGRATION.00281 21375 Information not available 08/02/2022 Do You Use Sunscreen Routinely? No MIGRATION.92517 33491 Information not available 08/02/2022 Has Tobacco Cessation Counseling Been Provided? No MIGRATION.92376 03038 Information not available 08/02/2022 Have You Recently Traveled Abroad? No MIGRATION.94177 65299 Information not available 08/02/2022 Do You Have Any Dietary Restrictions? No MIGRATION.19356 53109 Information not available 08/02/2022 Sex: Female Functional Status Question Answer Note LastModified by Organizat ion Details LastModified Time Do you use any illicit or recreational drugs? No MIGRATION.306854 7297 Information not available 08/02/2022 Do you or have you ever used any other forms of tobacco or nicotine? No MIGRATION.768028 9431 Information not available 08/02/2022 What is your level of alcohol consumption? 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 Occasional MIGRATION.965632 0652 Information not available 08/02/2022 Mental Status Question Answer Note LastModified by Organizat ion Details LastModified Time Do you feel stressed (tense, restless, nervous, or anxious, or unable to sleep at night)? BC2356-9 MIGRATION.[id number] 6 Information not available 08/02/2022 Family History Relationship Description Onset Age of this Age Resolved Age Notes LastModified by Organization Details LastModified Time Maternal Grandfather Hypertensive disorder Not available 2022 15:19:55 Maternal Grandmother Diabetes mellitus Not available 2022 15:20:11 Medical History Condition Response ARTHRITIS Y Gynecological HistoryNo gynecological history recorded. Obstetrics History GPAL:G 0 P 0 0 0 0 Past Encounters Encounter ID Performer Location Encounter Start Date Encounter Closed Date Diagnosis/Indication Diagnosis SNOMED-CT Code Diagnosis ICD10 Code Diagnosis IMO Codes Diagnosis Note [id number] WALDEMAR Boyer_BREANNE [address], [address] [address] 10/05/2020 00:00:00 10/05/2020 10:33:26 [id number] WALDEMAR BoyerG [facility] [address] [place] [address], [address] [address] 11/16/2020 00:00:00 11/16/2020 10:51:04 [id number] Samantha Wong MD [facility] [address] [facility], [facility] [place] [address] 04/07/2021 00:00:00 04/17/2021 12:25:41 [id number] Mp Lazo MD [facility] [place] [address] [facility] [address] [place] [address] 04/14/2021 00:00:00 04/14/2021 10:26:18 [id number] Samantha Wong MD [facility] Internal [facility] [place] [address] [facility] [address] [place] [address] 08/31/2021 00:00:00 09/02/2021 12:50:48 [id number] Mp Lazo MD [facility] [place] [address] [place] [address] 08/29/2022 15:00:28 08/29/2022 16:17:58 Pain of left shoulder joint [id number] M25.512 [id number] Mp Lazo MD [facility] [place] [address] [facility] [address] [place] [address] 09/07/2022 10:49:59 09/07/2022 12:28:37 Pain of left shoulder joint [id number] 7989718 M25.512 Glenoid labrum tear 2022 [id number] S43.432A [id number] Arielle Horvath NP [facility] [address] [place] [address], [address] [address] 09/11/2022 11:09:14 09/11/2022 11:46:40 Bilateral shoulder joint pain [id number] M25.511 M25.512 Health Concerns Section Related Observation LastModified by Organization Detai ls LastModified Time None Recorded Concern Status LastModified by Organization Details LastModified Time None Recorded Advance Directives Directive N: Payers Insurance Date Sequence Insurance Name Policy Number Policy Kohler Covered Member ID Kohler Member ID Guarantor Name 11/03/2022 1 [facility] [id number] Oseas Farooq [id number] Milagros Herbert 11/09/2023 2 [place] [facility] Milagros Herbert [id number] Milagros Herbert Notes Date Note Type Note Provider Name and Address Organization Details Recorded Time 08/29/2022 text/html ShoulderReported by PatientHPIFor associated symptoms, patient reportsweaknessandpopp ing/clickingbut reportsno numbness,no tingling,no swelling,no redness,no warmth,no ecchymosis,no catching/locking,no buckling,no grinding,no instability,no radiation down arm,no drainage,no fever,no chills,no weight loss, andno change in bowel/bladder habits. For hand dominance, patient reportsleftandright. For location, patient reportsleft,anterior, andlateral. For quality, patient reportsaching,throbbin g, andfrequent. For severity, patient reportsmoderate. For duration, patient reportscontinuous since onset. For timing, patient reportscannot identifyandchronic. For context, patient reportscannot identify. For alleviating factors, patient reportsice,rest,elevat ion, andnsaids. For aggravating factors, patient reportscarryingandthro wing. Mp Lazo MD [address], [place] [address], [place], [address], [employer] 08/29/2022 16:12:24 09/07/2022 text/html Patient returns shoulder pain left. She states the pains alternates the left 1 is worse now. She presents with an MRI scan today that demonstrates some labral tearing. Mp Lazo MD [address], [address], [place], [address], [employer] 09/07/2022 11:22:02 OBGyn Episode No OBEpisode recorded.
== END 2025-05-04 08:34 | disposition home or self-care (01) ==
LOC: ANHLAB 05-05 08:34
PROVIDERS: PCP Internal Medicine; Visit Provider Internal Medicine Gastroenterology
DX: K21.9 Gastro-esophageal reflux disease without esophagitis (principal)
CPT/HCPCS: 88305

== ENCOUNTER 2025-05-04 09:32 | Day surgery (SDC) | payer OTHER, SELFPAY ==
[2025-04-29 12:03] VITALS: BMI 31.8
[2025-05-04 09:54] VITALS: BMI 32.0
[2025-05-04 09:56] VITALS: BP 117/83; PULSE 74; RESP 16; TEMP 36.4; O2SAT 99
[2025-05-04] MEDS: LACTATED RINGERS 1,000 ML 150 ML IV CONT (10:17)
[2025-05-04] MEDS: SIMETHICONE ORAL SUSPENSION 20 MG/0.3 ML 30 ML BOTTLE 1.8 ML PO (10:17)
--- OUTSIDE RECORDS SUMMARY | 2025-05-04 10:23 | XMS_ITS | Continuity of Care Document ---
Author Organization [facility] (Adult Med) Address [address] [place] [address] Care Team Providers Care Manager Search Name Role Phone VAN WONG Primary Care Provider [phone] [facility] Automatic Drill Operator Assessment Encounter Date Assessment Date Assessment LastModified by Organization Details LastModified Time 04/03/2025 04/03/2025 She will need a colonoscopy blood work has been ordered bleeding gets worse go to the emergency room get records from previous physicians stay up-to-date on respiratory immunizations healthy lifestyle practices discussed see me 6 months [email or web address] Not available 04/05/2025 18:29:43 Plan of Treatment Reminders Order Date Submit Date Provider Last Modified By Organization Details Last Modified Time Details Appointments ANY 15 2024 02:15P Mik Wong MD Not available Not available Not available Lab lipid panel, serum 2024 025 [email or web address] [facility] (Lab), [address] [place], [address], 04/23/2025 10:03:32 CBC w/ auto diff 2024 025 [facility] (Lab), [address] [place], [address], 04/04/2025 15:42:59 CMP, serum or plasma 2024 025 [facility] (Lab), [address] [place], [address], 04/04/2025 15:42:59 Referral gastroent erologist referral 2024 [facility] - Gastroenterol [facility], [address], [address], [place], [address], 04/15/2025 10:10:32 Procedures None recorded. Surgeries None recorded. Imaging None recorded. Medication Orders albuterol sulfate HFA 90 mcg/actua tion aerosol inhaler 2024 [id number] [address], [place], [id number], 04/03/2025 14:10:42 hydrocort isone acetate 25 mg rectal supposito ry 2024 [facility][id number], [address], [place], [id number], 04/24/2025 05:02:54 Patient TargetsNo targets recorded. Patient Instructions Encounter Date Encounter Id Patient Instructions Last Modified By Organization Details Last Modified Time 04/03/2025 [id number] A healthy lifestyle: care instructions [email or web address] Not available 04/03/2025 12:49:17 Reason for Referral [facility] [employer] Referral for Rectal hemorrhage Referring Physician: Van Wong, Internal Medicine, Encounter Date: 04/03/2025 Results Created Date Observation Date Name Description Value Unit Range Abnormal Flag Note LastModifiedBy Organization Detail LastModifiedTime Result Notes None recorded. Problems Name Problem SNOMED Code Status Onset Date Resolution Date Notes Provider Name and Address Organization Details Recorded Time Rectal hemorrhage 66411028 Active ARIS Huang [facility] 12:44:10 Problem Notes None recorded. Procedures Surgical History Date Name Laterality Status Provider Name and Address Organization Details Recorded Time 03/04/20 21 Total hysterectomy completed Bailee Aguirre MA [facility] 04/03/2025 12:08:55 Imaging Results None recorded. Procedure Notes None recorded. Medical Equipment None Reported. Allergies No known drug allergies Medications Name Sig Start Date Stop Date Status Note LastModified by Organization Details LastModified Time hydrocortis one acetate 25 mg rectal suppository Insert 1 supposito ry twice a day by rectal route for 14 days. 04/24 completed Not Available Not Available Not Available albuterol sulfate HFA 90 mcg/actuati on aerosol inhaler Inhale 2 puffs every 4 hours by inhalatio n route. 2024 active Not Available Not Available Not Avai lable albuterol 90 mcg-budeson mehdi 80 mcg/actuati on HFA aerosol inhaler Inhale 2 inhalatio ns as needed by inhalatio n route. active Not Available Not Available No t Available Vitals Date Recorded Body weight Body mass index (BMI) Body height Heart rate Oxygen saturation Systolic And Diastolic Provider Name and Address Organization Details Last Updated DateTime 84783.4 9 g 30.9 kg/m2 170.18 cm 75 /min 95 % 112/76 mm[Hg] Bailee Aguirre MA [facility] 12:06:55 Social History Question Answer Notes LastModified by Organizat ion Details LastModified Time Tobacco Smoking Status Never Smoker Bailee Aguirre MA null, [facility] 04/03/2025 12:08:17 Are You Blind Or Do You Have Difficulty Seeing? No Information n ot available 04/03/2025 What Is Your Level Of Caffeine Consumption? Occasional Information not available 04/03/2025 In The 14 Days Before Symptom Onset, Have You Had Close Contact With A Laboratory-confirm ed COVID-19 While That Case Was Ill? No Information n ot available 04/03/2025 In The 14 Days Before Symptom Onset, Have You Had Close Contact With A Person Who Is Under Investigation For COVID-19 While That Person Was Ill? No Information not available 04/03/2025 Have You Been To An Area Known To Be High Risk For COVID-19? No Information not available 04/03/2025 Are You Deaf Or Do You Have Serious Difficulty Hearing? No Information not available 04/03/2025 What Was The Date Of Your Most Recent Tobacco Screening? 04/03/2025 Information not available 04/03/2025 Do You Use Your Seat Belt Or Car Seat Routinely? Yes Information not available 04/03/2025 Do You Have Smoke And Carbon Monoxide Detectors In Your Home? Yes Information not available 04/03/2025 Do You Use Sunscreen Routinely? Yes Information not available 04/03/2025 Has Tobacco Cessation Counseling Been Provided? No Information not available 04/03/2025 Sex: Female Functional Status Question Answer Note LastModified by Organizat ion Details LastModified Time Do you use any illicit or recreational drugs? No Information not available 04/03/2025 Do you or have you ever used any other forms of tobacco or nicotine? No Information not available 04/03/2025 What is your level of alcohol consumption? Occasional Information not available 04/03/2025 Are you able to care for yourself independently? Yes Information not available 04/03/2025 Mental Status None recorded. Family History Nothing Reported. Medical History Condition Response Asthma Y Gynecological HistoryNo gynecological history recorded. Obstetrics History GPAL:G 0 P 0 0 0 0 Past Encounters Encounter ID Performer Location Encounter Start Date Encounter Closed Date Diagnosis/Indication Diagnosis SNOMED-CT Code Diagnosis ICD10 Code Diagnosis IMO Codes Diagnosis Note [id number] MD Draryl Ackerman (Adult Med) [address] [place] [phone] 04/03/2025 11:45:39 04/03/2025 12:53:14 Obese class I 3354468092 78637 E66.811 E66.3 0955086639 30.9 Rectal hemorrhage 928857 02 K62.5 51762 Hemorrhoids 95823659 K64 .9 [id number] Screening for cardiovascular system disease 029371795 Z13.6 197448 Repeated prescription 18 0555159 Z76.0 183274 Mild inter mittent asthma 605519949 J45.20 8122354 Adult heal th examination 580886550 Z00.00 3388415 Health Concerns Section Related Observation LastModified by Organization Detai ls LastModified Time None Recorded Concern Status LastModified by Organization Details LastModified Time None Recorded Payers Encounter Date Sequence Insurance Name Policy Number Policy Kohler Covered Member ID Kohler Member ID Guarantor Name 04/03/2025 1 [facility] [id number] Oseas Weber [id number] Milagros Herbert 04/03/2025 2 [place] [facility] Milagros Herbert [id number] Milagros Herbert Notes Date Note Type Note Provider Name and Address Organization Details Recorded Time 04/03/2025 text/html 34-year-old establishing care she has had some rectal meaning plant painless some clots not dizzy when she stands up not fatigue meds none allergies none surgeries none family history of hypertension and rheumatoid arthritis socially does 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
--- OUTSIDE RECORDS SUMMARY | 2025-05-04 10:23 | XMS_ITS | Data Portability ---
Author Organization [facility] Estrellita Ellison Address [address] [facility] [facility] [place] [address] Care Team Providers Care Last Model Maker Name Role Phone SAMANTHA WONG Primary Care Provider [phone] [facility] Block Feeder Assessment Encounter Date Assessment Date Assessment LastModified by Organization Details LastModified Time 04/03/2025 04/03/2025 She will need a colonoscopy blood work has been ordered bleeding gets worse go to the emergency room get records from previous physicians stay up-to-date on respiratory immunizations healthy lifestyle practices discussed see me 6 months [email or web address] Not available 04/05/2025 18:29:43 Plan of Treatment Reminders Order Date Submit Date Provider Last Modified By Organization Details Last Modified Time Details Appointments ANY 15 2024 02:15P Mik Wong MD Not available Not available Not available Lab lipid panel, serum 2024 025 [email or web address] [facility] (Lab), [address] [place], [address], 04/23/2025 10:03:32 CBC w/ auto diff 2024 025 [facility] (Lab), [address] [place], [address], 04/04/2025 15:42:59 CMP, serum or plasma 2024 025 [facility] (Lab), [address] [place], [address], 04/04/2025 15:42:59 Referral gastroent erologist referral 2024 [facility] [place] - Gastroenter[facility]gy, [address], [address], [place], [address], 04/15/2025 10:10:32 Procedures None recorded. Surgeries None recorded. Imaging None recorded. Medication Orders albuterol sulfate HFA 90 mcg/actua tion aerosol inhaler 2024 [id number] [address] [place], [place], [id number], 04/03/2025 14:10:42 hydrocort isone acetate 25 mg rectal supposito ry 2024 [facility] #[id number] [place], [id number], 04/24/2025 05:02:54 Patient TargetsNo targets recorded. Patient Instructions Encounter Date Encounter Id Patient Instructions Last Modified By Organization Details Last Modified Time 04/03/2025 [id number] A healthy lifestyle: care instructions Not available 04/03/2025 12:49:17 Reason for Referral Colon Therapist Referral for Rectal hemorrhage Referring Physician: Samantha Wong, Internal Medicine, Encounter Date: 04/03/2025 Results Created Date Observation Date Name Description Value Unit Range Abnormal Flag Note LastModifiedBy Organization Detail LastModifiedTime 04/05/2004/05/2025 hemog lobin , gastr ointe hong l, stool hemoglobin, gastrointest inal, stool NEGATI VE text: negati ve Not Available Not Available 04/05/2025 13:33:51 04/05/20 25 04/05/2025 BMP, serum or plasm a glucose, qn [mass/volume ], serum or plasma 99 text: 70 - 99 mg/dL Not Available Not Available 04/05/2025 13:33:51 04/05/2004/05/2025 BMP, serum or plasm a BUN (blood urea nitrogen), serum or plasma 11 text: 7 - 18 mg/dL Not Available Not Available 04/05/2025 13:33:51 04/05/2004/05/2025 BMP, serum or plasm a creatinine, serum or plasma 0.78 text: 0.55 - 1.02 mg/dL Not Available Not Available 04/05/2025 13:33:51 04/05/2004/05/2025 BMP, serum or plasm a sodium, serum or plasma 138 text: 136 - 145 mmol/L Not Available Not Available 04/05/2025 13:33:51 04/05/2004/05/2025 BMP, serum or plasm a potassium, serum or plasma 3.9 text: 3.5 - 5.1 mmol/L Not Available Not Available 04/05/2025 13:33:51 04/05/2004/05/2025 BMP, serum or plasm a chloride, serum or plasma 107 text: 97 - 115 mmol/L Not Available Not Available 04/05/2025 13:33:51 04/05/2004/05/2025 BMP, serum or plasm a CO2, (carbon dioxide), total, serum or plasma 29.7 text: 21 - 32 mmol/L Not Available Not Available 04/05/2025 13:33:51 04/05/2004/05/2025 BMP, serum or plasm a calcium, serum or plasma 9.3 text: 8.5 - 10.1 mg/dL Not Available Not Available 04/05/2025 13:33:51 04/05/2004/05/2025 BMP, serum or plasm a anion gap, serum or plasma 1.3 text: 2 - 10 mmol/L low Not Available Not Available 04/05/2025 13:33:51 04/05/2004/05/2025 BMP, serum or plasm a BUN/creatini ne, ratio, serum 14 low: 6high: 26 Not Available Not Available 04/05/2025 13:33:51 04/05/20 25 04/05/2025 BMP, serum or plasm a glomerular filtration rate/1.73 sq M predicted, qn, creatinine based formula (CKD-epi 2020), serum or plasma or blood >90 text: >90 mL/min /1.73 M2 NOTE: eGFR is not calcu lated for patie nts <18 years of age or gende r unkno wn. This is an estim ated GFR calcu latio n using the new CKD EPI creat inine equat ion witho ut race and so does not requi re a corre ction facto r for race. This estim ated GFR shoul d not be used for calcu latin g drug doses . Not Available Not Available 04/05/2025 13:33:51 04/05/2004/05/2025 BMP, serum or plasm a lab interpretati on Abnorm al Not Available Not Available 13:33:51 04/05/20 25 04/05/2025 CBC w/ auto diff WBC, auto, blood 6.4 text: 4.5 - 11.0 x10'3/ uL Not Available Not Available 04/05/2025 13:33:51 04/05/20 25 04/05/2025 CBC w/ auto diff RBC count, blood 4.51 text: 4.20 - 5.40 x10'6/ uL Not Available Not Available 04/05/2025 13:33:51 04/05/20 25 04/05/2025 CBC w/ auto diff hemoglobin (Hb), blood 13.4 text: 12.0 - 16.0 g/dL Not Available Not Available 04/05/2025 13:33:51 04/05/20 25 04/05/2025 CBC w/ auto diff hematocrit, blood 39.3 % low: 38%hig h: 48% Not Available Not Available 04/05/2025 13:33:51 04/05/20 25 04/05/2025 CBC w/ auto diff MCV, qn (obs) 87.1 text: 81.0 - 99.0 fL Not Available Not Available 04/05/2025 13:33:51 04/05/20 25 04/05/2025 CBC w/ auto diff MCH, qn (obs) 29.7 pg low: 27pghi gh: 31pg Not Available Not Available 04/05/2025 13:33:51 04/05/20 25 04/05/2025 CBC w/ auto diff mean corpuscular hemoglobin concentratio n, qn, RBC 34.1 text: 32.0 - 36.0 g/dL Not Available Not Available 04/05/2025 13:33:51 04/05/20 25 04/05/2025 CBC w/ auto diff RDW 11.8 % low: 11.5%h igh: 14.5% Not Available Not Available 04/05/2025 13:33:51 04/05/20 25 04/05/2025 CBC w/ auto diff platelet count, blood 226 text: 130 - 400 x10'3/ uL Not Available Not Available 04/05/2025 13:33:51 04/05/20 25 04/05/2025 CBC w/ auto diff platelet mean volume, qn, blood (obs) 10.1 text: 9.3 - 12.2 fL Not Available Not Available 04/05/2025 13:33:51 04/05/2004/05/2025 CBC w/ auto diff differential cell count method, blood (obs) AUTOMA ABELARDO DIFFER ENTIAL Not Available Not Available 13:33:51 04/05/20 25 04/05/2025 CBC w/ auto diff neutrophils/ 100 leukocytes, automated, blood (obs) 56.4 % Not Available Not Available 04/05/2025 13:33:51 04/05/20 25 04/05/2025 CBC w/ auto diff lymphocytes/ 100 leukocytes, automated, blood (obs) 34.8 % Not Available Not Available 04/05/2025 13:33:51 04/05/20 25 04/05/2025 CBC w/ auto diff monocytes/10 0 leukocytes, automated, blood (obs) 7.7 % Not Available Not Available 04/05/2025 13:33:51 04/05/20 25 04/05/2025 CBC w/ auto diff eosinophils/ 100 leukocytes, automated, blood (obs) 0.6 % Not Available Not Available 04/05/2025 13:33:51 04/05/20 25 04/05/2025 CBC w/ auto diff basophils/10 0 leukocytes, automated, blood (obs) 0.2 % Not Available Not Available 04/05/2025 13:33:51 04/05/20 25 04/05/2025 CBC w/ auto diff immature granulocytes /100 leukocytes, automated, blood (obs) 0.3 % Not Available Not Available 04/05/2025 13:33:51 04/05/20 25 04/05/2025 CBC w/ auto diff neutrophils, count, blood (obs) 3.61 text: 1.80 - 7.70 x10'3/ uL Not Available Not Available 04/05/2025 13:33:51 04/05/20 25 04/05/2025 CBC w/ auto diff lymphocytes, blood (obs) 2.23 text: 1.00 - 4.80 x10'3/ uL Not Available Not Available 04/05/2025 13:33:51 04/05/20 25 04/05/2025 CBC w/ auto diff monocytes, count, blood (obs) 0.49 text: 0.24 - 0.86 x10'3/ uL Not Available Not Available 04/05/2025 13:33:51 04/05/20 25 04/05/2025 CBC w/ auto diff eosinophils, quant, blood 0.04 text: 0.04 - 0.36 x10'3/ uL Not Available Not Available 04/05/2025 13:33:51 04/05/20 25 04/05/2025 CBC w/ auto diff basophils, count, blood (obs) 0.01 text: 0.01 - 0.08 x10'3/ uL Not Available Not Available 04/05/2025 13:33:51 04/05/20 25 04/05/2025 CBC w/ auto diff immature granulocytes count, blood 0.02 text: 0.00 - 0.49 x10'3/ uL Not Available Not Available 04/05/2025 13:33:51 Result Notes None recorded. Problems Name Problem SNOMED Code Status Onset Date Resolution Date Notes Provider Name and Address Organization Details Recorded Time Rectal hemorrhage 95458899 Active 025 Brandon Martinez MA null, [facility] 12:44:10 Problem Notes None recorded. Procedures Surgical History Date Name Laterality Status Provider Name and Address Organization Details Recorded Time 03/04/20 21 Total hysterectomy completed Bailee Aguirre MA [facility] 04/03/2025 12:08:55 Imaging Results None recorded. Procedure [...] and Address Organization Details Last Updated DateTime 19052.4 9 g 30.9 kg/m2 170.18 cm 75 /min 95 % 112/76 mm[Hg] Bailee Aguirre MA [facility] 12:06:55 Social History Question Answer Notes LastModified by Organizat ion Details LastModified Time Tobacco Smoking Status Never Smoker Bailee Aguirre MA null, [place] [facility] 04/03/2025 12:08:17 Are You Blind Or Do [...] ICD10 Code Diagnosis IMO Codes Diagnosis Note [id number] aSmantha Wong MD [facility] (Adult Med) [address] [place] [phone] 04/03/2025 11:45:39 04/03/2025 12:53:14 Obese class I 1159825873 14000 E66.811 E66.3 7088733919 30.9 Rectal hemorrhage 249203 02 K62.5 67209 Hemorrhoids 47357199 K64 .9 940027694 Screening for cardiovascular system disease 254212070 Z13.6 892709 Repeated prescription 18 8150755 Z76.0 738774 Mild inter mittent asthma 937759487 J45.20 2931701 Adult heal th examination 229626824 Z00.00 4908508 Health Concerns Section Related Observation LastModified by Organization Detai ls LastModified Time None Recorded Concern Status LastModified by Organization Details LastModified Time None Recorded Advance Directives Directive None Recorded Payers Insurance Date Sequence Insurance Name Policy Number Policy Kohler Covered Member ID Kohler Member ID Guarantor Name 04/06/2025 1 [place] [id number] Oseas Weber [id number] Milagros Herbert 04/05/2025 2 [place]: [place] [employer] Milagros Herbert [id number] Milagros Herbert Notes Date Note Type Note Provider Name and Address Organization Details Recorded Time 04/03/2025 text/html 34-year-old establishing care she has had some rectal meaning plant painless some clots not dizzy when she stands up not fatigue meds none allergies none surgeries none family history of hypertension and rheumatoid arthritis socially 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, [place], [address], [facility] 04/05/2025 18:30:15 OBGyn Episode No OBEpisode recorded.
--- NOTE | 2025-05-04 10:24 | WPDANESEPPF ---
Anes - Initial Pre Proc Eval Procedure: Operation Date: 05/04/25 11:00 Proposed Procedures p EGD & Diagnostic Colonoscopy - Adolph Moore MD Date/Time: 05/04/25 10:24 Surgeon: Adolph Moore MD Pre Op Diagnosis: Unspecified abdominal pain Patient Data Age: 35 Gender: F Height: 1.68 m Weight: 90 kg Last Vital Signs Temp 97.5 F L 05/04/25 09:56 Pulse 74 05/04/25 09:56 Resp 16 05/04/25 09:56 BP 117/83 05/04/25 09:56 Pulse Ox 99 05/04/25 09:56 O2 Del Method Room Air 05/04/25 09:56 Allergies Allergy/AdvReac Type Severity Reaction Status Date / Time No Known Allergies Allergy Unknown Verified 05/04/25 09:45 Home Medications ?Medication ?Instructions ?Recorded ?Confirmed ?Type albuterol 90 mcg/actuation aerosol 90 mcg inhalation PRN PRN 06/11/20 05/04/25 History inhaler Shortness Of Breath hyoscyamine sulfate 0.125 mg 0.125 mg PO .every 6 hours PRN 04/28/25 05/04/25 Rx tablet (Levsin) abdominal pain #120 tabs Patient hx anesthesia problems: none Family hx anesthesia problems: none Results Review: All pre-operative results and documents have been reviewed as part of the pre-operative evaluation. [facility] Past Medical History Medical History Obesity Asthma Surgical History Surgical History History of hysterectomy Social History Social History Smoking status: Never smoker Alcohol intake: current Alcohol use details: occ Substance use: current Substance use type: marijuana Other substance usage details: daily Last use: 03/23/21 Lack of Transportation: No Lack of Food: Never True Current Housing: I Have Housing Concerned About Future Housing: No Difficulty Paying Gas/Electric Bills: No Difficulty Paying for Meds: No Currently Unemployed: No Education: High School Diploma/GED Difficulty w/ Childcare or Family Care: No Living arrangements: with family Spiritual care concerns: No Anes - Eval Final PreProcedure Day of Procedure 05/04/25 10:24 Heart: regular rate and rhythm Lungs: clear to auscultation Airway: Mallampati scale class II Neurological: alert and oriented Last oral intake: >/= 8 hours ASA classification: II Anesthetic plan: proceed Anesthesia type and monitoring: general Results Review: All pre-operative results and documents have been reviewed as part of the pre-operative evaluation. Informed Consent: The patient's anesthetic plan and its attendant risks and benefits were discussed with the patient/family/POA. Questions were solicited and answers provided to the satisfaction of the patient/family/POA.
--- OUTSIDE RECORDS SUMMARY | 2025-05-04 10:24 | XMS_ITS | Data Portability ---
Author Organization [facility] Address [address] [place] [address] Care Team Providers Care Project Technician Name Role Phone SAMANTHA LOZA Primary Care Provider [phone] Assessment Encounter Date Assessment Date Assessment LastModified by Organization Details LastModified Time 05/02/2021 05/02/2021 Annual gynecological exam performed. Patient will come back in a year unless there are new symptoms. Not available 05/02/2021 12:49:13 11/19/2023 11/19/2023 Annual gynecological exam performed. Patient will come back in a year unless there are new symptoms. [email or web address] Not available 11/19/2023 14:47:27 12/18/2024 12/18/2024 Annual gynecological exam performed. Patient will come back in a year unless there are new symptoms. [email or web address] Not available 12/18/2024 09:42:50 Plan of Treatment Reminders Order Date Submit Date Provider Last Modified By Organization Details Last Modified Time Details Appointments None recorded. Lab CMP, serum or plasma 2024 025 [facility] (Lab), [address], [place], [address], 5 06:51:42 CBC w/ auto diff 2024 025 [facility] (Lab), [address] [place], [address], 5 06:51:41 TSH, serum or plasma 2024 025 [facility] (Lab), [address], [place], [address], 5 06:51:43 lipid panel, blood 2024 025 [facility] (Lab), [address], [place], [address], 5 06:51:42 25-hydroxy vitamin D2 + 25-hydroxy vitamin D3, QN, serum or plasma 2024 025 [facility] (Lab), [address], [place], [address], 5 06:51:43 HbA1c (hemoglobi n A1c), blood 2024 025 [facility] (Lab), [address], [place], [address], 5 06:51:44 CBC w/ auto diff 2023 024 [facility] (Lab), [address], [place], [address], 4 04:03:28 CMP, serum or plasma 2023 024 [facility] (Lab), [address], [place], [address], 4 04:03:29 lipid panel, blood 2023 024 [facility] (Lab), [address], [place], [address], 4 04:03:29 TSH, serum or plasma 2023 024 [facility] (Lab), [address], [place], [address], 4 04:03:30 25-hydroxy vitamin D2 + 25-hydroxy vitamin D3, QN, serum or plasma 2023 024 [facility] (Lab), [address] [place], [address], 4 04:03:30 CBC w/ auto diff 2020 021 [facility] (Lab), [address], [place], [address], 1 04:33:03 CMP, serum or plasma 2020 021 [facility] (Lab), [address], [place], [address], 1 04:33:04 lipid panel, blood 2020 021 [facility] (Lab), [address], [place], [address], 1 04:33:03 TSH, serum or plasma 2020 021 [facility] (Lab), [address] [place], [address], 1 04:33:02 vitamin D, 25-hydroxy , total, serum 2020 021 [facility] (Lab), [address] [place], [address], 1 04:33:04 Referral colon & rectal surgeon referral 2024 025 SHON Yepez MD, [facility] [place], [address], 5 13:36:54 Procedures None recorded. Surgeries None recorded. Imaging None recorded. Medication Orders Diflucan 150 mg tablet 2023 024 [id number], [address], [place], [id number], 5 09:44:01 Metrogel Vaginal 0.75 % (37.5 mg/5 gram) 2023 [id number], [address], [place], [id number], 5 09:44:08 Patient TargetsNo targets recorded. Patient InstructionsNo instructions recorded. Reason for Referral Colon & Rectal Surgeon Refer ral for External hemorrhoids Referring Physician: Olga Zendejas [employer], Encounter Date: 12/18/2024 Results Created Date Observation Date Name Description Value Unit Range Abnormal Flag Note LastModifiedBy Organization Detail LastModifiedTime 05/02/20 21 05/02/2021 IMAGE GUIDE D PAP AND HPV REGAR DLESS image guided Pap, HPV regardless of Pap result SEE RESULT S BELOW CASE REPOR T: Cytol ogy Gynec ologi mavis Repor t Case: [id number] Autho cathi medina Provi ruba: Efrain Ibarra MD Colle cted: 05/02 1449 Order ing Locat ion: [place] Patho log[facility] Recei lisa: 05/03 0041 First Scree n: Jessica Smith , CT Rescr een: Blanca Barnett , BLAYNE Speci men: Scree sylwia Pap - Image d, Vagin a STATE MENT OF ADEQU ACY: Satis facto ry for evalu ation FINAL DIAGN OSIS: Negat martine for Intra epith elial Lesio n or Joni hutton (NIL) . Funga l organ isms morph ologi dillon consi stent with Wendie da spp. Elect capo peace nishi d by Blanca Barnett , BLAYNE on 2020 at 4:52 PM ----- ----- ----- ----- ----- ----- ----- ----- ----- ----- ----- ----- ----- ----- ----- ----- ----- ---- HPV RESUL TS: HPV mRNA E6/E7 : No HPV mRNA Detec camilo NOTE: This high risk HPV mRNA assay detec ts fourt een high- risk HPV types (16, 18, 31, 33, 35, 39, 45, 51, 52, 56, 58, 59, 66, 68) witho ut diffe renti ation . COMME NT: Note: This speci men was revie wed by a Cytot echno logis t and/o r Patho logis t (as indic ated in this repor t) after evalu ation using the Thinp rep Imagi ng Syste m. CLINI MAVIS INFOR MATIO N: Menst rual Statu s: LMP (if appli cable ): Clini mavis Histo ry/Pr eviou s Pap: Type of Neopl dc (if appli cable ): Signi fican t Clini mavis Findi ngs: Other Histo ry: Hormo clarisse (if appli cable ): PAP EDUCA NOLA L NOTE: The Pap Test is a scree sylwia test with an inher ent false negat martine rate. Liqui d-bas e sampl ing may decre ase, but will not elimi kali, false negat martine resul ts. A negat martine resul t does not precl ude the prese nce and/o r devel opmen t of disea se, since the prese nce of abnor mal cells in the sampl e depen ds on the locat ion of the lesio n and sampl ing techn ique. Jesus nued regul ar scree sylwia is the best metho d of cance r preve ntion . If repor camilo cytol ogic findi ng do not corre late with physi mavis and/o r histo rical findi ngs, furth er inves tigat ion is recom chidi d, as clini dillon galindo nted. Not Available [facility] (Lab) [address], [place], [address], 05/09/2021 17:55:52 05/03/20 21 05/03/2021 TSH, REFLE X FREE T4 TSH 1.23 uIU/m L 0.30-5 .33 Not Available [facility] (Lab) [address], [place], [address], 05/04/2021 04:33:02 05/03/20 21 05/03/2021 CBC W/DIF F WBC 6.8 10'3/ uL 3.6-10 .2 Not Available [facility] (Lab) [address], [place], [address], 05/04/2021 04:33:03 05/03/20 21 05/03/2021 CBC W/DIF F RBC 3.90 10'6/ uL (based on docume nted legal sex) 4.10-5 .30 low Not Available [facility] (Lab) [address], [place], [address], 05/04/2021 04:33:03 05/03/20 21 05/03/2021 CBC W/DIF F HGB 11.4 g/dL (based on docume nted legal sex) 11.9-1 5.8 low Not Available [facility] (Lab) [address], [place], [address], 05/04/2021 04:33:03 05/03/20 21 05/03/2021 CBC W/DIF F HCT 35.1 % (based on docume nted legal sex) 37.4-4 8.3 low Not Available [facility] (Lab) [address], [place], [address], 05/04/2021 04:33:03 05/03/20 21 05/03/2021 CBC W/DIF F MCV 90.0 fL 82.0-9 9.0 Not Available [facility] (Lab) [address], [place], [address], 05/04/2021 04:33:03 05/03/20 21 05/03/2021 CBC W/DIF F MCH 29.0 pg 27.0-3 3.0 Not Available [facility] (Lab) [address], [place], [address], 05/04/2021 04:33:03 05/03/20 21 05/03/2021 CBC W/DIF F MCHC 33.0 g/dL 32.0-3 6.0 Not Available [facility] (Lab) [address], [place], [address], 05/04/2021 04:33:03 05/03/20 21 05/03/2021 CBC W/DIF F RDW 12.0 % 11.0-1 5.0 Not Available [facility] (Lab) [address], [place], [address], 05/04/2021 04:33:03 05/03/20 21 05/03/2021 CBC W/DIF F plt 231 10'3/ uL 150-45 0 Not Available [facility] (Lab) [address], [place], [address], 05/04/2021 04:33:03 05/03/20 21 05/03/2021 CBC W/DIF F MPV 10.9 fL 9.8-12 .7 Not Available [facility] (Lab) [address], [place], [address], 05/04/2021 04:33:03 05/03/20 21 05/03/2021 CBC W/DIF F NRBC's 0.00 % 0 Not Available [facility] (Lab) [address], [place], [address], 05/04/2021 04:33:03 05/03/20 21 05/03/2021 CBC W/DIF F absolute NRBCs 0.0 10'3/ uL 0 Not Available [facility] (Lab) [address], [place], [address], 05/04/2021 04:33:03 05/03/20 21 05/03/2021 CBC W/DIF F neutrophils 58.0 % 37.0-7 2.0 Not Available [facility] (Lab) [address], [place], [address], 05/04/2021 04:33:03 05/03/20 21 05/03/2021 CBC W/DIF F lymphocytes 33.0 % 16.0-4 8.0 Not Available [facility] (Lab) [address], [place], [address], 05/04/2021 04:33:03 05/03/20 21 05/03/2021 CBC W/DIF F monocytes 8.0 % 4.0-14 .0 Not Available [facility] (Lab) [address], [place], [address], 05/04/2021 04:33:03 05/03/20 21 05/03/2021 CBC W/DIF F eosinophils 1.0 % 0.0-9. 0 Not Available [facility] (Lab) [address], [place], [address], 05/04/2021 04:33:03 05/03/20 21 05/03/2021 CBC W/DIF F basophils 0.0 % 0.0-2. 0 Not Available [facility] (Lab) [address], [place], [address], 05/04/2021 04:33:03 05/03/20 21 05/03/2021 CBC W/DIF F immature granulocytes 0.0 % no define d refere nce range Not Available [facility] (Lab) [address], [place], [address], 05/04/2021 04:33:03 05/03/20 21 05/03/2021 CBC W/DIF F absolute neutrophils 4.0 10'3/ uL 1.1-6. 0 Not Available [facility] (Lab) [address], [place], [address], 05/04/2021 04:33:03 05/03/20 21 05/03/2021 CBC W/DIF F absolute lymphocytes 2.2 10'3/ uL 0.7-3. 4 Not Available [facility] (Lab) [address], [place], [address], 05/04/2021 04:33:03 05/03/20 21 05/03/2021 CBC W/DIF F absolute monocytes 0.5 10'3/ uL 0.3-1. 0 Not Available [facility] (Lab) [address], [place], [address], 05/04/2021 04:33:03 05/03/20 21 05/03/2021 CBC W/DIF F absolute eosinophils 0.1 10'3/ uL 0.0-0. 6 Not Available [facility] (Lab) [address], [place], [address], 05/04/2021 04:33:03 05/03/20 21 05/03/2021 CBC W/DIF F absolute basophils 0.0 10'3/ uL 0.0-0. 1 Not Available [facility] (Lab) [address], [place], [address], 05/04/2021 04:33:03 05/03/20 21 05/03/2021 CBC W/DIF F absolute immature granulocytes 0.00 10'3/ uL 0.00-0 .10 2020 2:30 AM: P indic ates parti al resul ts on a panel have been relea sed. Addit ional resul ts will follo w. 2020 2:31 AM: This resul t has been final verif ied. No addit ional or pittman ed resul ts are expec camilo. Not Available [facility] (Lab) [address], [place], [address], 05/04/2021 04:33:03 05/03/20 21 05/03/2021 LIPID PANEL ,AMA (LDL- CALC) total cholesterol 174 mg/dL 0-[address] [facility] (Lab) [address], [place], [address], 05/04/2021 04:33:03 05/03/20 21 05/03/2021 LIPID PANEL ,AMA (LDL- CALC) triglyceride s 117 mg/dL 0.00-1 50.00 NCEP Refer ence Value s for Trigl yceri jumana: Erika l: <150 mg/dL Borde rline High: 150 - 199 mg/dL High: 200 - 499 mg/dL Very High: >/= 500 mg/dL Not Available [facility] (Lab) [address], [place], [address], 05/04/2021 04:33:03 05/03/20 21 05/03/2021 LIPID PANEL ,AMA (LDL- CALC) HDL cholesterol 51 mg/dL >[address] [facility] (Lab) [address] [place], [address], 05/04/2021 04:33:03 05/03/20 21 05/03/2021 LIPID PANEL ,AMA (LDL- CALC) LDL cholesterol 100 mg/dL 0-99 high Cutof f value s recom chidi d by the Natio nal Demetria stero l Educa tion Progr am: TAL ABLE: Demetria stero l <200 mg/dL LDL <100 mg/dL BORDE RLINE : Demetria stero l 200-2 39 mg/dL LDL 101-1 59 mg/dL HIGHE R RISK: Demetria stero l >240 mg/dL LDL >160 mg/dL , HDL <40 mg/dL Not Available [facility] (Lab) [address], [place], [address], 05/04/2021 04:33:03 05/03/20 21 05/03/2021 LIPID PANEL ,AMA (LDL- CALC) non-HDL cholesterol 123 mg/dL no refere nce range A reaso nable goal for non-H DL demetria stero l is one that is 30 mg/dL highe r than the LDL demetria stero l goal. Not Available [facility] (Lab) [address] [place], [address], 05/04/2021 04:33:03 11/30/20 21 05/03/2021 LIPID PANEL ,AMA (LDL- CALC) chol/HDL ratio 3.4 . 0.0-5. 0 Not Available [facility] (Lab) [address], [place], [address], 05/04/2021 04:33:03 05/03/20 21 05/03/2021 CMP(C OMPRE HENSI VE METAB OLIC PANEL ) sodium 140 mmol/ L 133-14 6 Not Available [facility] (Lab) [address], [place], [address], 05/04/2021 04:33:04 05/03/20 21 05/03/2021 CMP(C OMPRE HENSI VE METAB OLIC PANEL ) potassium 3.6 mmol/ L 3.5-5. 1 Not Available [facility] (Lab) [address], [place], [address], 05/04/2021 04:33:04 05/03/20 21 05/03/2021 CMP(C OMPRE HENSI VE METAB OLIC PANEL ) chloride 104 mmol/ L 98-107 Not Available [facility] (Lab) [address], [place], [address], 05/04/2021 04:33:04 05/03/20 21 05/03/2021 CMP(C OMPRE HENSI VE METAB OLIC PANEL ) carbon dioxide 29 mmol/ L 21-31 Not Available [facility] (Lab) [address] [place], [address], 05/04/2021 04:33:04 05/03/20 21 05/03/2021 CMP(C OMPRE HENSI VE METAB OLIC PANEL ) anion gap 7 mmol/ L 4-13 Not Available [facility] (Lab) [address], [place], [address], 05/04/2021 04:33:04 05/03/20 21 05/03/2021 CMP(C OMPRE HENSI VE METAB OLIC PANEL ) blood urea nitrogen 8 mg/dL 7-25 Not Available [facility] (Lab) [address], [place], [address], 05/04/2021 04:33:04 05/03/20 21 05/03/2021 CMP(C OMPRE HENSI VE METAB OLIC PANEL ) creatinine 0.80 mg/dL 0.60-1 .30 Not Available [facility] (Lab) [address], [place], [address], 05/04/2021 04:33:04 05/03/20 21 05/03/2021 CMP(C OMPRE HENSI VE METAB OLIC PANEL ) egfrcr (CKD-epi 2020) >90 mL/mi n/1.7 3_m2 >=60 Not Available [facility] (Lab) [address], [place], [address], 05/04/2021 04:33:04 05/03/20 21 05/03/2021 CMP(C OMPRE HENSI VE METAB OLIC PANEL ) calcium 9.0 mg/dL 8.3-10 .5 Not Available [facility] (Lab) [address], [place], [address], 05/04/2021 04:33:04 05/03/20 21 05/03/2021 CMP(C OMPRE HENSI VE METAB OLIC PANEL ) glucose 87 mg/dL 70-100 Not Available [facility] (Lab) [address], [place], [address], 05/04/2021 04:33:04 05/03/20 21 05/03/2021 CMP(C OMPRE HENSI VE METAB OLIC PANEL ) protein, total 6.5 g/dL 6.4-8. 3 Not Available [facility] (Lab) [address], [place], [address], 05/04/2021 04:33:04 05/03/20 21 05/03/2021 CMP(C OMPRE HENSI VE METAB OLIC PANEL ) albumin 4.0 g/dL 3.5-5. 0 Not Available [facility] (Lab) [address], [place], [address], 05/04/2021 04:33:04 05/03/20 21 05/03/2021 CMP(C OMPRE HENSI VE METAB OLIC PANEL ) ALT 8 units /L 9-43 low Not Available [facility] (Lab) [address] [place], [address], 05/04/2021 04:33:04 05/03/20 21 05/03/2021 CMP(C OMPRE HENSI VE METAB OLIC PANEL ) alkaline phosphatase 49 units /L 34-104 Not Available [facility] (Lab) [address], [place], [address], 05/04/2021 04:33:04 05/03/20 21 05/03/2021 CMP(C OMPRE HENSI VE METAB OLIC PANEL ) AST 13 units /L 13-39 Not Available [facility] (Lab) [address], [place], [address], 05/04/2021 04:33:04 05/03/20 21 05/03/2021 CMP(C OMPRE HENSI VE METAB OLIC PANEL ) bilirubin, total 0.5 mg/dL 0.2-1. 2 Not Available [facility] (Lab) [address] [place], [address], 05/04/2021 04:33:04 05/03/20 21 05/03/2021 VITAM IN D, 25-OH (TOTA L D2/D3 ) vitamin D, 25-hydroxy, total 12.3 NG/mL 30-80 low NOTE: Defic iency : <20 ng/mL Insuf ficie ncy: 20-29 ng/mL Optim um Level : 30-80 ng/mL Possi ble Toxic ity: >80 ng/mL Most patie nts with toxic ity have level s >150 ng/mL . Not Available [facility] (Lab) [address] [place], [address], 05/04/2021 04:33:04 11/19/19 24 11/19/2023 CBC W/DIF F WBC 5.7 10'3/ uL 3.5-10 .5 Not Available [facility] (Lab) [address], [place], [address], 11/20/2023 04:03:28 11/19/19 24 11/19/2023 CBC W/DIF F RBC 4.71 10'6/ uL (based on docume nted legal sex) 3.80-5 .20 Not Available [facility] (Lab) [address], [place], [address], 11/20/2023 04:03:28 11/19/19 24 11/19/2023 CBC W/DIF F HGB 13.6 g/dL (based on docume nted legal sex) 11.6-1 5.4 Not Available [facility] (Lab) [address], [place], [address], 11/20/2023 04:03:28 11/19/19 24 11/19/2023 CBC W/DIF F HCT 41.5 % (based on docume nted legal sex) 34.0-4 5.0 Not Available [facility] (Lab) [address], [place], [address], 11/20/2023 04:03:28 11/19/19 24 11/19/2023 CBC W/DIF F MCV 88.1 fL 80.0-9 9.0 Not Available [facility] (Lab) [address], [place], [address], 11/20/2023 04:03:28 11/19/19 24 11/19/2023 CBC W/DIF F MCH 28.9 pg 27.0-3 4.0 Not Available [facility] (Lab) [address], [place], [address], 11/20/2023 04:03:28 11/19/19 24 11/19/2023 CBC W/DIF F MCHC 32.8 g/dL 32.0-3 5.5 Not Available [facility] (Lab) [address], [place], [address], 11/20/2023 04:03:28 11/19/19 24 11/19/2023 CBC W/DIF F RDW 11.6 % 11.0-1 5.0 Not Available [facility] (Lab) [address], [place], [address], 11/20/2023 04:03:28 11/19/19 24 11/19/2023 CBC W/DIF F plt 220 10'3/ uL 150-40 0 Not Available [facility] (Lab) [address], [place], [address], 11/20/2023 04:03:28 11/19/19 24 11/19/2023 CBC W/DIF F MPV 10.9 fL 8.8-12 .1 Not Available [facility] (Lab) [address], [place], [address], 11/20/2023 04:03:28 11/19/19 24 11/19/2023 CBC W/DIF F NRBC's 0.0 % 0.0 Not Available [facility] (Lab) [address], [place], [address], 11/20/2023 04:03:28 11/19/19 24 11/19/2023 CBC W/DIF F absolute NRBCs 0.0 10'3/ uL no refere nce range establ ished Not Available [facility] (Lab) [address], [place], [address], 11/20/2023 04:03:28 11/19/19 24 11/19/2023 CBC W/DIF F neutrophils 51.4 % 34.0-7 3.0 Not Available [facility] (Lab) [address] [place], [address], 11/20/2023 04:03:28 11/19/19 24 11/19/2023 CBC W/DIF F lymphocytes 40.3 % 15.0-5 0.0 Not Available [facility] (Lab) [address], [place], [address], 11/20/2023 04:03:28 11/19/19 24 11/19/2023 CBC W/DIF F monocytes 7.2 % 1.0-15 .0 Not Available [facility] (Lab) [address], [place], [address], 11/20/2023 04:03:28 11/19/19 24 11/19/2023 CBC W/DIF F eosinophils 0.5 % 0.0-8. 0 Not Available [facility] (Lab) [address], [place], [address], 11/20/2023 04:03:28 11/19/19 24 11/19/2023 CBC W/DIF F basophils 0.4 % 0.0-2. 0 Not Available [facility] (Lab) [address], [place], [address], 11/20/2023 04:03:28 11/19/19 24 11/19/2023 CBC W/DIF F immature granulocytes 0.2 % no define d refere nce range Not Available [facility] (Lab) [address] [place], [address], 11/20/2023 04:03:28 11/19/19 24 11/19/2023 CBC W/DIF F absolute neutrophils 2.9 10'3/ uL 1.5-8. 0 Not Available [facility] (Lab) [address] [place], [address], 11/20/2023 04:03:28 11/19/19 24 11/19/2023 CBC W/DIF F absolute lymphocytes 2.3 10'3/ uL 1.0-4. 0 Not Available [facility] (Lab) [address], [place], [address], 11/20/2023 04:03:28 11/19/19 24 11/19/2023 CBC W/DIF F absolute monocytes 0.4 10'3/ uL 0.2-1. 0 Not Available [facility] (Lab) [address], [place], [address], 11/20/2023 04:03:28 11/19/19 24 11/19/2023 CBC W/DIF F absolute eosinophils 0.0 10'3/ uL 0.0-0. 6 Not Available [facility] (Lab) [address], [place], [address], 11/20/2023 04:03:28 11/19/19 24 11/19/2023 CBC W/DIF F absolute basophils 0.0 10'3/ uL 0.0-0. 3 Not Available [facility] (Lab) [address], [place], [address], 11/20/2023 04:03:28 11/19/19 24 11/19/2023 CBC W/DIF F absolute immature granulocytes 0.0 10'3/ uL 0.00-0 .10 2023 1:53 AM: P indic ates parti al resul ts on a panel have been relea sed. Addit ional resul ts will follo w. 2023 1:53 AM: This resul t has been final verif ied. No addit ional or pittman ed resul ts are expec camilo. Not Available [facility] (Lab) [address], [place], [address], 11/20/2023 04:03:28 11/19/19 24 11/19/2023 LIPID PANEL ,AMA (LDL- CALC) total cholesterol 179 mg/dL 0-[address] [facility] (Lab) [address], [place], [address], 11/20/2023 04:03:29 11/19/19 24 11/19/2023 LIPID PANEL ,AMA (LDL- CALC) triglyceride s 107 mg/dL 0-150 NCEP Refer ence Value s for Trigl yceri jumana: Erika l: <150 mg/dL Borde rline High: 150 - 199 mg/dL High: 200 - 499 mg/dL Very High: >/= 500 mg/dL Not Available [facility] (Lab) [address], [place], [address], 11/20/2023 04:03:29 11/19/19 24 11/19/2023 LIPID PANEL ,AMA (LDL- CALC) HDL cholesterol 53 mg/dL >[address] [facility] (Lab) [address], [place], [address], 11/20/2023 04:03:29 11/19/19 24 11/19/2023 LIPID PANEL ,AMA (LDL- CALC) LDL cholesterol 106 mg/dL 0-99 high Cutof f value s recom chidi d by the Natio nal Demetria stero l Educa tion Progr am: TAL ABLE: Demetria stero l <200 mg/dL LDL <100 mg/dL BORDE RLINE : Demetria stero l 200-2 39 mg/dL LDL 101-1 59 mg/dL HIGHE R RISK: Demetria stero l >240 mg/dL LDL >160 mg/dL , HDL <40 mg/dL Not Available [facility] (Lab) [address] [place], [address], 11/20/2023 04:03:29 11/19/19 24 11/19/2023 LIPID PANEL ,AMA (LDL- CALC) non-HDL cholesterol 126 mg/dL no refere nce range A reaso nable goal for non-H DL demetria stero l is one that is 30 mg/dL highe r than the LDL demetria stero l goal. Not Available [facility] (Lab) [address], [place], [address], 11/20/2023 04:03:29 11/19/19 24 11/19/2023 LIPID PANEL ,AMA (LDL- CALC) chol/HDL ratio 3.4 . 0.0-5. 0 On September 26, 2022, [facility] labor atorteri mohr pittman ed the equat ion for calcu latin g estim ated low-d ensit y lipop rotei n-cho leste rol (LDL- C) from the Fried dandre equat ion to the Arcelia n/Hop hollie equat ion. This new equat ion is only valid for lipid panel s with trigl yceri jumana < 400 mg/dL . Annemarie resendiz demon strat ed that this new equat ion will impro ve the accur acy of LDL-C , espec ially in scena mukherjee when LDL-C sarah ntrat ions are relat ively low (< 100 mg/dL ), trigl yceri jumana are eleva camilo, or patie nt is non-f astin g. Refer ences : - Arcelia britt, Chay Ordaz, Cesar Lanza , Jelani allen, Dayday Shore, Dayday franklin, Glenn garcia , and Woody [place] . 2013. Comp ariso n of a Novel Metho d vs the Fried dandre Equat ion for Estim ating Low-D ensit y Lipop rotei n Demetria stero l Level s from the Stand emilee Lipid Profi le. JAMESON: The Journ al of the Ameri can Medic al Assoc iatio n 310 (19): 2060- . - Amaya brown V, Keshia J, Ashley brown A, Sarbjit M, Ariela e R, Kodak brown E, [facility] RS, De SR, Arcelia britt SS. Fast ing Versu s Nonfa sting and Low-D ensit y Lipop rotei n Demetria stero l Accur acy. Circu latio n. 2017Jun 05;137 (1):1 0-19. Not Available [facility] (Lab) [address], [place], [address], 11/20/2023 04:03:29 11/19/19 24 11/19/2023 CMP(C OMPRE HENSI VE METAB OLIC PANEL ) sodium 140 mmol/ L 133-14 6 Not Available [facility] (Lab) [address], [place], [address], 11/20/2023 04:03:29 11/19/19 24 11/19/2023 CMP(C OMPRE HENSI VE METAB OLIC PANEL ) potassium 3.9 mmol/ L 3.5-5. 1 Not Available [facility] (Lab) [address], [place], [address], 11/20/2023 04:03:29 11/19/19 24 11/19/2023 CMP(C OMPRE HENSI VE METAB OLIC PANEL ) chloride 102 mmol/ L 98-107 Not Available [facility] (Lab) [address], [place], [address], 11/20/2023 04:03:29 11/19/19 24 11/19/2023 CMP(C OMPRE HENSI VE METAB OLIC PANEL ) carbon dioxide 28 mmol/ L 21-31 Not Available [facility] (Lab) [address], [place], [address], 11/20/2023 04:03:29 11/19/19 24 11/19/2023 CMP(C OMPRE HENSI VE METAB OLIC PANEL ) anion gap 10 mmol/ L 4-13 Not Available [facility] (Lab) [address] [place], [address], 11/20/2023 04:03:29 11/19/19 24 11/19/2023 CMP(C OMPRE HENSI VE METAB OLIC PANEL ) blood urea nitrogen 8 mg/dL 7-25 Not Available [facility] (Lab) [address], [place], [address], 11/20/2023 04:03:29 11/19/19 24 11/19/2023 CMP(C OMPRE HENSI VE METAB OLIC PANEL ) creatinine 0.78 mg/dL 0.60-1 .30 Not Available [facility] (Lab) [address], [place], [address], 11/20/2023 04:03:29 11/19/19 24 11/19/2023 CMP(C OMPRE HENSI VE METAB OLIC PANEL ) egfrcr (CKD-epi 2020) >90 mL/mi n/1.7 3_m2 >=60 Not Available [facility] (Lab) [address], [place], [address], 11/20/2023 04:03:29 11/19/19 24 11/19/2023 CMP(C OMPRE HENSI VE METAB OLIC PANEL ) calcium 9.3 mg/dL 8.3-10 .5 Not Available [facility] (Lab) [address], [place], [address], 11/20/2023 04:03:29 11/19/19 24 11/19/2023 CMP(C OMPRE HENSI VE METAB OLIC PANEL ) glucose 86 mg/dL 70-100 Not Available [facility] (Lab) [address], [place], [address], 11/20/2023 04:03:29 11/19/19 24 11/19/2023 CMP(C OMPRE HENSI VE METAB OLIC PANEL ) protein, total 7.1 g/dL 6.4-8. 3 Not Available [facility] (Lab) [address], [place], [address], 11/20/2023 04:03:29 11/19/19 24 11/19/2023 CMP(C OMPRE HENSI VE METAB OLIC PANEL ) albumin 4.6 g/dL 3.5-5. 0 Not Available [facility] (Lab) [address], [place], [address], 11/20/2023 04:03:29 11/19/19 24 11/19/2023 CMP(C OMPRE HENSI VE METAB OLIC PANEL ) ALT 9 units /L 9-43 Not Available [facility] (Lab) [address], [place], [address], 11/20/2023 04:03:29 11/19/19 24 11/19/2023 CMP(C OMPRE HENSI VE METAB OLIC PANEL ) alkaline phosphatase 51 units /L 34-104 Not Available [facility] (Lab) [address], [place], [address], 11/20/2023 04:03:29 11/19/19 24 11/19/2023 CMP(C OMPRE HENSI VE METAB OLIC PANEL ) AST 13 units /L 13-39 Not Available [facility] (Lab) [address], [place], [address], 11/20/2023 04:03:29 11/19/19 24 11/19/2023 CMP(C OMPRE HENSI VE METAB OLIC PANEL ) bilirubin, total 0.6 mg/dL 0.2-1. 2 Not Available [facility] (Lab) [address], [place], [address], 11/20/2023 04:03:29 11/19/19 24 11/19/2023 TSH, REFLE X FREE T4 TSH 0.89 uIU/m L 0.30-5 .33 Not Available [facility] (Lab) [address], [place], [address], 11/20/2023 04:03:30 11/19/19 24 11/19/2023 VITAM IN D, 25-OH (TOTA L D2/D3 ) vitamin D, 25-hydroxy, total 14.8 NG/mL 30.0-1 00.0 low Sugge stive of Defic iency : <20 ng/mL Sugge stive of Insuf ficie ncy: 20-29 ng/mL Sugge stive of Suffi cienc y: 30-10 0 ng/mL Sugge stive of Toxic ity: >150 ng/mL Not Available [facility] (Lab) [address], [place], [address], 11/20/2023 04:03:30 06/1711/19/2023 IMAGE GUIDE D PAP AND HPV REGAR DLESS image guided Pap, HPV regardless of Pap result SEE RESULT S BELOW CASE REPOR T: Cytol ogy Gynec ologi mavis Repor t Case: [id number] Autho cathi medina Provi ruba: Efrain Ibarra MD Colle cted: 11/18 1618 Order ing Locat ion: [place] Patho logy Recei lisa: 11/19 0821 First Scree n: Marzena Lam ret, CT Rescr een: Blanca Barnett , CT Speci men: Alley dao Pap - Image d, Cervi x STATE MENT OF ADEQU ACY: Satis facto ry for evalu ation Trans forma tion zone compo nent prese nt ----- ----- ----- ----- ----- ----- ----- ----- ----- ----- ----- ----- ----- ----- ----- ----- ----- ---- FINAL DIAGN OSIS: Negat martine for Intra epith elial Lesanay britt or Joni hutton (NIL) . Funga l organ isms morph ologi dillon consi stent with Wendie da spp. Elect capo peace nishi d by Blanca Barnett , CT on 2023 at 4:51 PM ----- ----- ----- ----- ----- ----- ----- ----- ----- ----- ----- ----- ----- ----- ----- ----- ----- ---- HPV RESUL TS: HPV mRNA E6/E7 : No HPV mRNA Detec camilo NOTE: This high risk HPV mRNA assay detec ts fourt een high- risk HPV types (16, 18, 31, 33, 35, 39, 45, 51, 52, 56, 58, 59, 66, 68) witho ut diffe renti ation . COMME NT: This speci men was revie wed by a Cytot echno logis t and/o r Patho logis t (as indic ated in this repor t) after evalu ation using the Thinp rep Imagi ng Syste m. CLINI MAVIS INFOR MATIO N: Menst rual Statu s: LMP (if appli cable ): Clini mavis Histo ry/Pr eviou s Pap: Type of Neopl dc (if appli cable ): Signi fican t Clini mavis Findi ngs: Other Histo ry: Hormo clarisse (if appli cable ): PAP EDUCA NOLA L NOTE: The Pap Test is a scree sylwia test with an inher ent false negat martine rate. Liqui d-bas ed sampl ing may decre ase, but will not elimi kali, false negat martine resul ts. A negat martine resul t does not precl ude the prese nce and/o r devel opmen t of disea se, since the prese nce of abnor mal cells in the sampl e depen ds on the locat ion of the lesio n and sampl ing techn ique. Jesus nued regul ar scree sylwia is the best metho d of cance r preve ntion . If repor camilo cytol ogic findi ng do not corre late with physi mavis and/o r histo rical findi ngs, furth er inves tigat ion is recom chidi d, as clini dillon galindo nted. Not Available [facility] (Lab) [address], [place], [address], 11/21/2023 17:56:57 12/19/1912/18/2024 CBC W/DIF F WBC 7.4 10'3/ uL 3.5-10 .5 Not Available [facility] (Lab) [address], [place], [address], 12/19/2024 06:51:41 12/19/19 25 12/18/2024 CBC W/DIF F RBC 4.65 10'6/ uL (based on docume nted legal sex) 3.80-5 .20 Not Available [facility] (Lab) [address], [place], [address], 12/19/2024 06:51:41 12/19/19 25 12/18/2024 CBC W/DIF F HGB 13.5 g/dL (based on docume nted legal sex) 11.6-1 5.4 Not Available [facility] (Lab) [address], [place], [address], 12/19/2024 06:51:41 12/19/19 25 12/18/2024 CBC W/DIF F HCT 41.2 % (based on docume nted legal sex) 34.0-4 5.0 Not Available [facility] (Lab) [address], [place], [address], 12/19/2024 06:51:41 12/19/19 25 12/18/2024 CBC W/DIF F MCV 88.6 fL 80.0-9 9.0 Not Available [facility] (Lab) [address], [place], [address], 12/19/2024 06:51:41 12/19/19 25 12/18/2024 CBC W/DIF F MCH 29.0 pg 27.0-3 4.0 Not Available [facility] (Lab) [address], [place], [address], 12/19/2024 06:51:41 12/19/19 25 12/18/2024 CBC W/DIF F MCHC 32.8 g/dL 32.0-3 5.5 Not Available [facility] (Lab) [address], [place], [address], 12/19/2024 06:51:41 12/19/19 25 12/18/2024 CBC W/DIF F RDW 11.9 % 11.0-1 5.0 Not Available [facility] (Lab) [address], [place], [address], 12/19/2024 06:51:41 12/19/19 25 12/18/2024 CBC W/DIF F plt 254 10'3/ uL 150-40 0 Not Available [facility] (Lab) [address], [place], [address], 12/19/2024 06:51:41 12/19/19 25 12/18/2024 CBC W/DIF F MPV 10.1 fL 8.8-12 .1 Not Available [facility] (Lab) [address], [place], [address], 12/19/2024 06:51:41 12/19/19 25 12/18/2024 CBC W/DIF F NRBC's 0.0 % 0.0 Not Available [facility] (Lab) [address], [place], [address], 12/19/2024 06:51:41 12/19/19 25 12/18/2024 CBC W/DIF F absolute NRBCs 0.0 10'3/ uL no refere nce range establ ished Not Available [facility] (Lab) [address], [place], [address], 12/19/2024 06:51:41 12/19/19 25 12/18/2024 CBC W/DIF F neutrophils 55.9 % 34.0-7 3.0 Not Available [facility] (Lab) [address], [place], [address], 12/19/2024 06:51:41 12/19/19 25 12/18/2024 CBC W/DIF F lymphocytes 35.6 % 15.0-5 0.0 Not Available [facility] (Lab) [address], [place], [address], 12/19/2024 06:51:41 12/19/19 25 12/18/2024 CBC W/DIF F monocytes 7.7 % 1.0-15 .0 Not Available [facility] (Lab) [address], [place], [address], 12/19/2024 06:51:41 12/19/19 25 12/18/2024 CBC W/DIF F eosinophils 0.4 % 0.0-8. 0 Not Available [facility] (Lab) [address], [place], [address], 12/19/2024 06:51:41 12/19/19 25 12/18/2024 CBC W/DIF F basophils 0.3 % 0.0-2. 0 Not Available [facility] (Lab) [address], [place], [address], 12/19/2024 06:51:41 12/19/19 25 12/18/2024 CBC W/DIF F immature granulocytes 0.1 % no define d refere nce range Immat ure Granu locyt es (IG) repre sents autom ated enume ratio n of Metam yeloc ytes, Myelo cytes and Promy elocy beverly when IG is < 5%. Blast s are not inclu ded in IG and repor camilo separ ately if prese nt. Not Available [facility] (Lab) [address], [place], [address], 12/19/2024 06:51:41 12/19/19 25 12/18/2024 CBC W/DIF F absolute neutrophils 4.2 10'3/ uL 1.5-8. 0 Not Available [facility] (Lab) [address], [place], [address], 12/19/2024 06:51:41 12/19/19 25 12/18/2024 CBC W/DIF F absolute lymphocytes 2.6 10'3/ uL 1.0-4. 0 Not Available [facility] (Lab) [address], [place], [address], 12/19/2024 06:51:41 12/19/19 25 12/18/2024 CBC W/DIF F absolute monocytes 0.6 10'3/ uL 0.2-1. 0 Not Available [facility] (Lab) [address], [place], [address], 12/19/2024 06:51:41 12/19/1912/18/2024 CBC W/DIF F absolute eosinophils 0.0 10'3/ uL 0.0-0. 6 Not Available [facility] (Lab) [address], [place], [address], 12/19/2024 06:51:41 12/19/19 25 12/18/2024 CBC W/DIF F absolute basophils 0.0 10'3/ uL 0.0-0. 3 Not Available [facility] (Lab) [address], [place], [address], 12/19/2024 06:51:41 12/19/1912/18/2024 CBC W/DIF F absolute immature granulocytes 0.0 10'3/ uL 0.00-0 .10 Refer ence range s for nonbi nary/ inter sex or unspe cifie d gende r patie nts have not been estab lishe d. [facility]as e [facility] for range s estab lishe d for cisge nder patie nts and evalu ate in the clini mavis brittni xt of the indiv idual patie nt: https :[email or web address] [email or web address] book. nm.or g/gen derx Not Available [facility] (Lab) [address], [place], [address], 12/19/2024 06:51:41 12/19/1912/18/2024 CMP(C OMPRE HENSI VE METAB OLIC PANEL ) sodium 139 mmol/ L 133-14 6 Not Available [facility] (Lab) [address], [place], [address], 12/19/2024 06:51:42 12/19/1912/18/2024 CMP(C OMPRE HENSI VE METAB OLIC PANEL ) potassium 3.9 mmol/ L 3.5-5. 1 Not Available [facility] (Lab) [address], [place], [address], 12/19/2024 06:51:42 12/19/19 25 12/18/2024 CMP(C OMPRE HENSI VE METAB OLIC PANEL ) chloride 102 mmol/ L 98-107 Not Available [facility] (Lab) [address], [place], [address], 12/19/2024 06:51:42 12/19/19 25 12/18/2024 CMP(C OMPRE HENSI VE METAB OLIC PANEL ) carbon dioxide 31 mmol/ L 21-31 Not Available [facility] (Lab) [address], [place], [address], 12/19/2024 06:51:42 12/19/19 25 12/18/2024 CMP(C OMPRE HENSI VE METAB OLIC PANEL ) anion gap 6 mmol/ L 4-13 Not Available [facility] (Lab) [address], [place], [address], 12/19/2024 06:51:42 12/19/19 25 12/18/2024 CMP(C OMPRE HENSI VE METAB OLIC PANEL ) blood urea nitrogen 7 mg/dL 7-25 Not Available [facility] (Lab) [address], [place], [address], 12/19/2024 06:51:42 12/19/19 25 12/18/2024 CMP(C OMPRE HENSI VE METAB OLIC PANEL ) creatinine 0.74 mg/dL 0.60-1 .30 Not Available [facility] (Lab) [address], [place], [address], 12/19/2024 06:51:42 12/19/19 25 12/18/2024 CMP(C OMPRE HENSI VE METAB OLIC PANEL ) egfrcr (CKD-epi 2020) >90 mL/mi n/1.7 3_m2 >=60 Not Available [facility] (Lab) [address], [place], [address], 12/19/2024 06:51:42 12/19/19 25 12/18/2024 CMP(C OMPRE HENSI VE METAB OLIC PANEL ) calcium 9.9 mg/dL 8.3-10 .5 Not Available [facility] (Lab) [address], [place], [address], 12/19/2024 06:51:42 12/19/19 25 12/18/2024 CMP(C OMPRE HENSI VE METAB OLIC PANEL ) glucose 87 mg/dL 70-100 Not Available [facility] (Lab) [address], [place], [address], 12/19/2024 06:51:42 12/19/19 25 12/18/2024 CMP(C OMPRE HENSI VE METAB OLIC PANEL ) protein, total 7.2 g/dL 6.4-8. 3 Not Available [facility] (Lab) [address], [place], [address], 12/19/2024 06:51:42 12/19/19 25 12/18/2024 CMP(C OMPRE HENSI VE METAB OLIC PANEL ) albumin 4.7 g/dL 3.5-5. 0 Not Available [facility] (Lab) [address], [place], [address], 12/19/2024 06:51:42 12/19/19 25 12/18/2024 CMP(C OMPRE HENSI VE METAB OLIC PANEL ) ALT 11 units /L 9-43 Not Available [facility] (Lab) [address], [place], [address], 12/19/2024 06:51:42 12/19/19 25 12/18/2024 CMP(C OMPRE HENSI VE METAB OLIC PANEL ) alkaline phosphatase 55 units /L 34-104 Not Available [facility] (Lab) [address], [place], [address], 12/19/2024 06:51:42 12/19/19 25 12/18/2024 CMP(C OMPRE HENSI VE METAB OLIC PANEL ) AST 13 units /L 13-39 Not Available [facility] (Lab) [address], [place], [address], 12/19/2024 06:51:42 12/19/19 25 12/18/2024 CMP(C OMPRE HENSI VE METAB OLIC PANEL ) bilirubin, total 0.7 mg/dL 0.2-1. 2 Not Available [facility] (Lab) [address] [place], [address], 12/19/2024 06:51:42 12/19/19 25 12/18/2024 LIPID PANEL ,AMA (LDL- CALC) total cholesterol 200 mg/dL 0-[address] [facility] (Lab) [address] [place], [address], 12/19/2024 06:51:42 12/19/1912/18/2024 LIPID PANEL ,AMA (LDL- CALC) triglyceride s 121 mg/dL 0-150 NCEP Refer ence Value s for Trigl yceri jumana: Erika l: <150 mg/dL Lisbeth fritz High: 150 - 199 mg/dL High: 200 - 499 mg/dL Very High: >/= 500 mg/dL Not Available [facility] (Lab) [address] [place], [address], 12/19/2024 06:51:42 12/19/1912/18/2024 LIPID PANEL ,AMA (LDL- CALC) HDL cholesterol 49 mg/dL >[address] [facility] (Lab) [address] [place], [address], 12/19/2024 06:51:42 12/19/1912/18/2024 LIPID PANEL ,AMA (LDL- CALC) LDL cholesterol 128 mg/dL 0-99 high Cutof f value s recom chidi d by the Natio nal Demetria stero l Educa tion Progr am: TAL ABLE: Demetria stero l <200 mg/dL LDL <100 mg/dL BORDE RLINE : Demetria stero l 200-2 39 mg/dL LDL 101-1 59 mg/dL HIGHE R RISK: Demetria stero l >240 mg/dL LDL >160 mg/dL , HDL <40 mg/dL Not Available [facility] (Lab) [address], [place], [address], 12/19/2024 06:51:42 12/19/1912/18/2024 LIPID PANEL ,AMA (LDL- CALC) non-HDL cholesterol 151 mg/dL no refere nce range A reaso nable goal for non-H DL demetria stero l is one that is 30 mg/dL highe r than the LDL demetria stero l goal. Not Available [facility] (Lab) [address], [place], [address], 12/19/2024 06:51:42 12/19/1912/18/2024 LIPID PANEL ,AMA (LDL- CALC) chol/HDL ratio 4.1 . 0.0-5. 0 On September 26, 2022, [facility] labor atori es pittman ed the equat ion for calcu latin g estim ated low-d ensit y lipop rotei n-cho leste rol (LDL- C) from the Fried dandre equat ion to the Arcelia balwinder/Harjeet browne equat ion. This new equat ion is only valid for lipid panel s with trigl yceri jumana < 400 mg/dL . Studi es have demon strat ed that this new equat ion will impro ve the accur acy of LDL-C , espec ially in scena mukherjee when LDL-C sarah ntrat ions are relat ively low (< 100 mg/dL ), trigl yceri jumana are eleva camilo, or patie nt is non-f astin g. Refer ences : - Chay [place], Cesar Lanza , Jelani allen, [facility], [facility], [facility] , and Woody Kc . 2013. Comp ariso n of a Novel Metho d vs the Fried dandre Equat ion for Estim ating Low-D ensit y Lipop rotei n Demetria stero l Level s from the Stand emilee Lipid Profteri melendez. JAMESON: The Journ al of the Ameri can Medic al Assoc iatio n 310 19): 2060- . - Amaya brown V, Keshia J, Ashley brown A, Sarbjit M, Ariela e R, Kodak brown E, Lucinda garcia RS, Kc SR, Arcelia n SS. Fast ing Versu s Nonfa sting and Low-D ensit y Lipop rotei n Demetria stero l Accur acy. Circu latio n. 2017Jun 05;137 (1):1 0-19. Not Available [facility] (Lab) [address], [place], [address], 12/19/2024 06:51:42 12/19/19 25 12/18/2024 TSH, REFLE X FREE T4 TSH 0.76 uIU/m L 0.30-5 .33 Not Available [facility] (Lab) [address], [place], [address], 12/19/2024 06:51:43 12/19/19 25 12/18/2024 VITAM IN D, 25-OH (TOTA L D2/D3 ) vitamin D, 25-hydroxy, total 20.3 NG/mL 30.0-1 00.0 low Sugge stive of Defic iency : <20 ng/mL Sugge stive of Insuf ficie ncy: 20-29 ng/mL Sugge stive of Suffi cienc y: 30-10 0 ng/mL Sugge stive of Toxic ity: >150 ng/mL Not Available [facility] (Lab) [address] [place], [address], 12/19/2024 06:51:43 12/19/19 25 12/18/2024 HEMOG LOBIN A1C hemoglobin A1C 5.8 % 4.0-5. 6 high The Ameri can Diabe beverly Assoc iatio n recom mends that a prima ry goal of thera py shoul d be a HBA1C of < 7% and that physi cians shoul d reeva luate the treat ment regim en in patie nts with HBA1C value s consi stent ly > 8%. <5.7% Erika l 5.7 - 6.4% Incre ased risk for diabe beverly >=6.5 % Diagn ostic of diabe beverly <7.0% Goal of thera py >8.0% Actio n sugge sted Not Available [facility] (Lab) [address], [place], [address], 12/19/2024 06:51:44 12/19/19 25 12/18/2024 IMAGE GUIDE D PAP AND HPV REGAR DLESS image guided Pap, HPV regardless of Pap result SEE RESULT S BELOW CASE REPOR T: Cytol ogy Gynec ologi mavis Repor t Case: [id number] Autho ridahlia g Provi ruba: Olga Zendejas, GLEN Colle cted: 12/18 1048 Order ing Locat ion: [place] Patho logy Recei lisa: 12/19 0130 First Scree n: Austin Rodriguez, CT Rescr een: Blanca Barnett , CT Speci men: Alley dao Pap - Image d, Vagin a STATE MENT OF ADEQU ACY: Satis facto ry for evalu ation ----- ----- ----- ----- ----- ----- ----- ----- ----- ----- ----- ----- ----- ----- ----- ----- ----- ---- FINAL DIAGN OSIS: Negat martine for Intra epith elial Janee britt or Joni hutton (NIL) . Shift in ellen sugge stive of bacte rial vagin osis. Elect capo almodovar d by Blanca Barnett , CT on 2024 at 1715 CDT ----- ----- ----- ----- ----- ----- ----- ----- ----- ----- ----- ----- ----- ----- ----- ----- ----- ---- HPV RESUL TS: HPV mRNA E6/E7 : No HPV mRNA Detec camilo NOTE: This high risk HPV mRNA assay detec ts fourt een high- risk HPV types (16, 18, 31, 33, 35, 39, 45, 51, 52, 56, 58, 59, 66, 68) witho ut diffe renti ation . COMME NT: Slide scree tiffanie adriana banuelos due to rejec tion by the Thinp rep Imagi ng Syste m. CLINI MAVIS INFOR MATIO N: Menst rual Statu s: LMP (if appli cable ): Clini mavis Histo ry/Pr eviou s Pap: Type of Neopl dc (if appli cable ): Signi fican t Clini mavis Findi ngs: Other Histo ry: Hormo clarisse (if appli cable ): PAP EDUCA NOLA L NOTE: The Pap Test is a scree sylwia test with an inher ent false negat martine rate. Liqui d-bas ed sampl ing may decre ase, but will not elimi kali, false negat martine resul ts. A negat martine resul t does not precl ude the prese nce and/o r devel opmen t of disea se, since the prese nce of abnor mal cells in the sampl e depen ds on the locat ion of the lesio n and sampl ing techn ique. Jesus nued regul ar scree sylwia is the best metho d of cance r preve ntion . If repor camilo cytol ogic findi ng do not corre late with physi mavis and/o r histo rical findi ngs, furth er inves tigat ion is recom chidi d, as mike galindo nted. Not Available [facility] (Lab) [address], [place], [address], 12/22/2024 18:20:03 Result Notes Documentation Provider Name and Address Organization Details Recorded Time Surgical Pathology Study : fu apt with Beer on 04/06/21 thor bansk [facility] 04/06/2021 18:21:42 Problems Name Problem SNOMED Code Status Onset Date Resolution Date Notes Provider Name and Address Organization Details Recorded Time Poor growth affectin g manageme nt 746791636 Completed 201002/08/2021 GROWTH POOR SGA;Prac joanne ID: 0001 [facility] 10:11:08 Disorder of amniotic cavity AND/OR membrane [id number] Completed 201002/08/2021 Unspecif ied problem associat ed with amniotic cavity and membrane s, antepart um;Pract ice ID: 0001 Arleen Herbert [facility] 10:09:05 Routine antenata l care Completed 201002/08/2021 Supervis ion of other normal pregnanc y;Practi ce ID: 0001 Arleen Herbert [facility] 10:09:51 Known OR suspecte d abnormal ity affectin g manageme nt of mother Completed 201002/08/2021 Cord Two Vessel Fetus;Pr actice ID: 0001 Arleen Herbert [facility] 10:11:16 Single live from singleto n pregnanc y [id number] Completed 201002/08/2021 Mother with single liveborn ;Practic e ID: 0001 [facility] 10:09:45 Delivery normal [id number] Completed 201002/08/2021 Normal delivery ;Practic e ID: 0001 [facility] 10:09:01 Postpart um care Completed 201002/08/2021 Routine postpart um follow-u p;Practi ce ID: 0001 Arleen Herbert [facility] 10:10:22 Educatio n Completed 201002/08/2021 Other general counseli ng and advice on contrace ptive manageme nt;Pract ice ID: 0001 Arleen farias [facility] 10:13:29 Screenin g for malignan t neoplasm of cervix Completed 201002/08/2021 Pap Smear;Pr actice ID: 0001 Arleen Herbert [facility] 10:09:48 Speciali zed medical examinat ion Completed 201002/08/2021 Routine gynecolo gical examinat ion;Prac joanne ID: 0001 Arleen Herbert [facility] 10:10:16 Irregula r periods [id number] Completed 201002/08/2021 Irregula r menstrua l cycle;Pr actice ID: 0001 Arleen farias [facility] 10:11:28 Amenorrh ea [id number] Completed 201002/08/2021 AMENORRH EA;Pract ice ID: 0001 Arleen Herbert [facility] 10:07:06 Vaginiti s and vulvovag initis Completed 201002/08/2021 Vaginiti s;Record ed Elsewher e: No Locat ion: Pattie mosquera [facility] S ource: EHR Contract Processor froylan: N Practi ce ID: 0001 [place] Time: 01:00:00 PM Arleen farias [facility] 10:09:21 Pregnanc y test negative [id number] Completed 201102/08/2021 Negative Pregnanc y Test;Pra ctice ID: 0001 Arleen Herbert [facility] 10:10:10 Insertio n of intraute rine contrace ptive device Completed 201102/08/2021 INSERTIO N OF IUD;Prac joanne ID: 0001 Arleen Herbert [facility] 1 10:11:33 Family planning surveill ance Completed 201102/08/2021 Contrace ptive surveill ance, unspecif ied;Prac joanne ID: 0001 Arleen Herbert [facility] 1 10:13:32 Headache [id number] Completed 201102/08/2021 Headache ;Practic e ID: 0001 Arleen Herbert [facility] 10:11:37 Dysfunct ional uterine bleeding Active 2011 DUB;Prac joanne ID: 0001 Not Available [facility] 0 18:22:01 Dysmenor julisa [id number] Active 2011 Dysmenor julisa;Pra ctice ID: 0001 Not Available [facility] 0 18:22:01 Uses IUD (intraut erine device) contrace ption [id number] Completed 201102/08/2021 Surveill ance of intraute rine contrace ptive device;P ractice ID: 0001 Arleen Herbert [facility] 10:13:25 Female genital organ symptoms [id number] Completed 201202/08/2021 Unspecif ied symptom associat ed with female genital organs;R ecorded Elsewher e: No Locat ion: [facility] S ource: EHR Contract Processor froylan: N Practi ce ID: [id number] [place] lable Time: 11:15:00 AM Arleen Herbert [facility] 10:13:22 Cyst of ovary [id number] Completed 201202/08/2021 OVARIAN CYST;Pra ctice ID: 0001 Arleen Herbert [facility] 1 10:08:58 Removal of intraute rine device Completed 201302/08/2021 REMOVAL OF IUD;Quinn rded Elsewher e: No Locat ion: [facility] S ource: EHR Contract Processor froylan: N Practi ce ID: 0001 [place] lable Time: 02:30:00 PM Arleen [facility] 1 10:09:59 Pregnanc y test positive [id number] Completed 201302/08/2021 Pregnanc y examinat ion or test, positive result;R ecorded Elsewher e: No Locat ion: [facility] S ource: EHR Contract Processor froylan: N Practi ce ID: [id number] [place] lable Time: 10:30:00 AM Arleen Herbert [facility] 1 10:10:07 Ultrason ography Completed 201302/08/2021 Antenata l screenin g for malforma tion using ultrason ics;Prac joanne ID: 0001 Arleen Herbert [facility] 10:09:28 Antenata l screenin g Completed 201302/08/2021 Antenata l screenin g for malforma tion using ultrason ics;Prac joanne ID: 0001 Arleen [facility] 10:07:09 Congenit al malforma tion [id number] Completed 201302/08/2021 Antenata l screenin g for malforma tion using ultrason ics;Prac joanne ID: 0001 Arleen Herbert [facility] 10:08:56 Complica tion related to pregnanc y Completed 201302/08/2021 Weight Insuffic ient Antepart um;Pract ice ID: 0001 Arleen [facility] 10:08:53 Spotting per vagina in pregnanc y [id number] Completed 201302/08/2021 SPOTTING -ANTEPAR VIVEK;Prac joanne ID: 0001 Arleen Herbert [facility] 10:09:36 Antenata l ultrasou nd scan for slow growth [id number] Completed 201302/08/2021 Antenata l screenin g for growth retardat ion using ultrason ics;Quinn rded Elsewher e: No Locat ion: So eveline [facility] S ource: EHR Contract Processor froylan: N Practi ce ID: 0001 North lable Time: 03:00:00 PM Arleencon Herbert [facility] 10:07:15 Umbilica l hernia [id number] Completed 201402/08/2021 Umbilica l hernia without mention of obstruct ion or gangrene ;Recorde d Elsewher e: No Locat ion: [facility] S ource: EHR Contract Processor froylan: N Practi ce ID: 0001 North lable Time: 09:30:00 AM Arleencon Herbert [facility] 1 10:09:24 Venereal disease screenin g Completed 201402/08/2021 Screenin g examinat ion for venereal disease; Recorded Elsewher e: No Locat ion: [facility] S ource: EHR Contract Processor froylan: N Practi ce ID: 0001 North lable Time: 05:45:00 PM Arleencon Herbert [facility] 1 10:09:13 Leukocyt osis [id number] Completed 201402/08/2021 LEUKOCYT OSIS NOS;Quinn rded Elsewher e: No Locat ion: [facility] S ource: EHR Contract Processor froylan: N Practi ce ID: 0001 North lable Time: 05:45:00 PM Arleencon Herbert [facility] 1 10:11:12 Overweig ht [id number] Completed 201402/08/2021 Overweig ht;Recor ded Elsewher e: No Locat ion: [facility] S ource: EHR Contract Processor froylan: Balwinder Denizodin ce ID: 0001 North lable Time: 05:45:00 PM Arleen farias [facility] 10:10:27 Speciali zed medical examinat ion Completed 201402/08/2021 Other specifie d chlamydi al diseases ;Practic e ID: 0001 Arleen farias [facility] 10:09:39 Pre-surg vika evaluati on Completed 201402/08/2021 Pre-oper ative examinat ion, unspecif ied;Quinn rded Elsewher e: No Locat ion: [facility] S ource: EHR Contract Processor froylan: Balwinder Fair ce ID: 0001 North lable Time: 04:00:00 PM Arleen farias [facility] 10:10:19 Procedur e on genitour inary system Completed 201402/08/2021 Steriliz ation;Re corded Elsewher e: No Locat ion: [facility] S ource: EHR Contract Processor froylan: Balwinder Fair ce ID: 0001 North lable Time: 03:30:00 PM Arleen farias [facility] 10:09:56 Postoper ative follow-u p visit Completed 201402/08/2021 Follow-u p examinat ion, followin g unspecif ied surgery; Recorded Elsewher e: No Locat ion: [facility] S ource: EHR Contract Processor froylan: Balwinder Fair ce ID: 0001 North lable Time: 03:30:00 PM Arleen farias [facility] 10:11:05 Leukorrh ea [id number] Completed 201402/08/2021 Leukorrh ea, not specifie d as infectiv e;Record ed Elsewher e: No Locat ion: Tomekajaskaran eveline [facility] S ource: EHR Contract Processor froylan: N Marv ce ID: 0001 North lable Time: 04:00:00 PM Arleen Herbert [facility] 1 10:10:31 History of tubal ligation [id number] Active 2014 Tubal ligation status;P ractice ID: 0001 Not Available [facility] 0 18:22:10 Body mass index 25-29 - overweig ht [id number] Completed 201502/08/2021 Body mass index (BMI) 29.0-29. 9, adult;Re corded Elsewher e: No [facility] Contract Processor froylan: N Marv ce ID: 0001 North lable Time: 01:15:00 PM Arleen [facility] 1 10:07:18 Acute vaginiti s [id number] Completed 201502/08/2021 Acute vaginiti s;Record ed Elsewher e: No [facility]: EHR Contract Processor froylan: N Marv ce ID: 0001 North lable Time: 03:15:00 PM Arleen [facility] 1 10:06:59 Vaginola bial hernia Completed 201502/08/2021 Other specifie d noninfla mmatory disorder s of vagina;R ecorded Elsewher e: No [facility]: EHR Contract Processor froylan: N Marv ce ID: 0001 North lable Time: 03:15:00 PM Arleen Herbert [facility] 1 10:09:19 Body mass index 30+ - obesity [id number] Completed 201702/08/2021 Body mass index (BMI) 30.0-30. 9, adult;Re corded Elsewher e: No Locat ion: [facility] eveline [facility] S ource: EHR Contract Processor froylan: N Denizti ce ID: 0001 North lable Time: 11:00:00 AM Arleen Herbert [facility] 1 10:08:49 Hemorrho ids [id number] Completed 201702/08/2021 Hemorrho ids;Quinn rded Elsewher e: No Locat ion: [facility] S ource: EHR Contract Processor froylan: N Practi ce ID: 0001 North lable Time: 03:15:00 PM [facility] 1 10:13:19 Finding of menstrua l bleeding Completed 201802/08/2021 Menorrha mary;Quinn rded Elsewher e: No Locat ion: [facility] S ource: EHR [facility] froylan: N Denizti ce ID: 0001 North lable Time: 03:45:00 PM Arleencon Herbert [facility] 1 10:13:16 Pelvic and perineal pain [id number] Active 2018 Pelvic pain;Rec orded Elsewher e: No Locat ion: 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 S ource: EHR Contract Processor froylan: N Practi ce ID: 0001 North lable Time: 03:00:00 PM Arleencon Herbert [facility] 1 10:09:42 Pain in female genitali a Completed 201802/08/2021 Dysmenor julisa, unspecif ied;Quinn rded Elsewher e: No Locat ion: [facility] S ource: EHR Contract Processor rfoylan: N Marv ce ID: 0001 North lable Time: 03:00:00 PM Arleen Herbert [facility] 10:13:13 Problem Notes None recorded. Procedures Surgical History Date Name Laterality Status Provider Name and Address Organization Details Recorded Time 024 Date of Last Pap Smear completed Tawny López [facility] 12/18/2024 09:44:37 TOTAL LAPAROSCOPIC HYSTERECTOMY (SURG) completed Yakelin Chung [facility] 03/31/2021 11:49:58 Endometrial Ablation completed Arleen [facility] 02/08/2021 09:45:28 SALPINGECTOMY, LAPAROSCOPIC (SURG) completed [facility] 02/08/2021 09:45:17 hysterosalpingography completed Wai andujar [facility] 02/04/2021 14:59:27 Laparoscopy completed Arleen [facility] 02/08/2021 10:06:37 Endometrial Ablation completed Cornelius se [facility] 02/08/2021 10:06:37 Imaging Results None recorded. Procedure Notes None recorded. Medical Equipment None Reported. Allergies No known drug allergies Medications Name Sig Start Date Stop Date Status Note LastModified by Organization Details LastModified Time Prometriu m 200 mg capsule take 1 capsule (200MG) by oral route every day for 12 days 03/11 completed Prescrib ed Elsewher e: No Locat ion: [facility] M odify By: gmedical Encount er DateTime : 02/29/20 11 03:02:55 PM Not Available Not Available Not Available azelastin e 0.05 % eye drops 06/16 completed Not Available Not Available Not Available prednison e 10 mg tablet 03/28 completed Not Available Not Available Not Available naproxen 375 mg tablet take 1 tablet by oral route 2 times every day with food 04/03 completed Prescrib ed Elsewher e: Yes Loca tion: [facility] odify By: vanita foley DateTime : 07/25/19 12 11:00:00 AM Not Available Not Available Not Available hydrocodo ne 5 mg-acetam inophen 500 mg capsule take 2 capsule by oral route every 4 - 6 hours as needed not to exceed 8 capsules per 24hrs 04/07 completed Prescrib ed Elsewher e: Yes Loca tion: [facility] odify By: vanita foley DateTime : 12/05/19 13 11:15:00 AM Not Available Not Available Not Available hydrocodo ne 5 mg-acetam inophen 325 mg tablet TAKE 1 TO 2 TABLETS BY MOUTH EVERY 4 HOURS NEEDED FOR PAIN 05/02 completed Not Available Not Available Not Available Diflucan 150 mg tablet take 1 tablet by oral route once 12/18 completed Not Available Not Available Not Available Microgest in FE 06/23 (28) 1 mg-20 mcg (21)/75 mg (7) tablet TAKE 1 TABLET BY ORAL ROUTE EVERY DAY 02/23 completed Prescrib ed Elsewher e: No Locat ion: [facility]ie [facility]qu[facility] odify By: colten foley DateTime : 01/05/20 15 10:15:30 AM Not Available Not Available Not Available amoxicill in 875 mg tablet TAKE 1 TABLET BY MOUTH TWICE DAILY UNTIL ALL TAKEN 11/18 completed Not Available Not Available Not Available Metrogel Vaginal 0.75 % (37.5 mg/5 gram) insert 1 applicat orful by vaginal route every day at bedtime 12/18 completed Not Available Not Available Not Available Diflucan 100 mg tablet take 1 tablet by oral route every day 01/22 completed Prescrib ed Elsewher e: No Locat ion: [facility]ie [facility] odify By: ravi black DateTime : 04/26/20 16 03:15:00 PM Not Available Not Available Not Available Nortrel 0.5/35 (28) 0.5 mg-35 mcg tablet TK 1 T PO QD 03/28 completed Not Available Not Available Not Available cephalexi n 500 mg capsule 05/02 completed Not Available Not Available Not Available diclofena c sodium 75 mg tablet,de layed release TAKE 1 TABLET BY MOUTH TWICE DAILY WITH FOOD NEEDED 05/02 completed Not Available Not Available Not Available hydroxyzi ne HCl 25 mg tablet 2 tabs po take 2 hours before procedur e and prn for post op nausea 02/23 completed Prescrib ed Elsewher e: No Locat ion: [facility] odify By: colten foley DateTime : 12/30/19 15 11:13:08 AM Not Available Not Available Not Available ergocalci ferol (vitamin D2) 1,250 mcg (50,000 unit) capsule TAKE 1 CAPSULE BY MOUTH EVERY WEEK FOR 12 WEEKS 11/18 completed Not Available Not Available Not Available diazepam 10 mg tablet po 1-2 hours before the procedur e 02/23 completed Prescrib ed Elsewher e: No Locat ion: [facility] odify By: colten foley DateTime : 12/30/19 15 11:13:08 AM Not Available Not Available Not Available methylpre dnisolone 4 mg tablets in a dose pack 03/28 completed Not Available Not Available Not Available albuterol sulfate HFA 90 mcg/actua tion aerosol inhaler inhale 2 puff by inhalati on route every 4 - 6 hours as needed active Prescrib ed Elsewher e: Yes Loca tion: [facility] odify By: vanita foley DateTime : 06/16/19 14 02:30:00 PM Not Available Not Available Not Available ketorolac 60 mg/2 mL intramusc ular solution bring to office and given 30 minutes before procedur e 01/22 completed Prescrib ed Elsewher e: No Locat ion: [facility] odify By: carlos hopkinsunter DateTime : 12/30/19 15 11:13:08 AM Not Available Not Available Not Available Flexeril 10 mg tablet take 1 tablet (10MG) by oral route 2 times every day 04/03 completed Prescrib ed Elsewher e: No Locat ion: [facility]attie mosquera [facility] odify By: vanita foley DateTime : 07/25/19 12 11:00:00 AM Not Available Not Available Not Available Flovent HFA 44 mcg/actua tion aerosol inhaler inhale 2 puff by inhalati on route 2 times every day active Prescrib ed Elsewher e: Yes Loca tion: [facility]attie mosquera [facility] odify By: vanita foley DateTime : 06/16/19 14 02:30:00 PM Not Available Not Available Not Available cholecalc iferol (vitamin D3) 1,250 mcg (50,000 unit) capsule Take 1 capsule every week by oral route. 2024 active Not Available Not Available Not Avai lable ferrous sulfate 28 mg iron tablet 04/03 completed Prescrib ed Elsewher e: Yes Loca tion: [facility]attie mos[facility] odify By: vanita foley DateTime : 07/25/19 12 11:00:00 AM Not Available Not Available Not Available Lo Loestrin Fe 1 mg-10 mcg (24)/10 mcg (2) tablet take 1 tablet by oral route every day 11/30 completed Prescrib ed Elsewher e: No Locat ion: [facility] odify By: colliny Lamine veloz DateTime : 01/23/20 15 03:30:00 PM Not Available Not Available Not Available Dwayne-Victoriano uo DHA 29 mg-1 mg-400 mg oral pack take 2 by Oral route once for 30 days 12/02 completed Prescrib ed Elsewher e: No Locat ion: [facility]ie [facility] odify By: ravi black DateTime : 11/04/19 14 10:30:00 AM Not Available Not Available Not Available Vicodin 5 mg-300 mg tablet 2 tabs po 2 hours before the procedur e and 1-2 tabs every 4 hours prn for post op pain 01/22 completed Prescrib ed Elsewher e: No Locat ion: [facility] nguyen By: amkuhl E ncounter DateTime : 12/30/19 11:13:08 AM Not Available Not Available Not Available Prenate Chewable 1 mg tablet Take 1 chewable pill daily. 07/07 completed Prescrib islea Neves e: No Locat ion: Pattie mosquera [facility] Mik cedillo By: [email or web address] trick En counter DateTime : 11/18/19 14 01:22:33 PM Not Available Not Available Not Available Vitals Date Recorded Body height Body mass index (BMI) Body weight Systolic And Diastolic Provider Name and Address Organization Details Last Updated DateTime 11/19/2023 165.1 cm 32.4 kg/m2 77679.51 g 131/77 mm[Hg] Connie Tobin [facility] 11/19/2023 14:49:50 Date Recorded Body height Body mass index (BMI) Body weight Systolic And Diastolic Provider Name and Address Organization Details Last Updated DateTime 12/18/2024 167.64 cm 32.3 kg/m2 16154.47 g 118/80 mm[Hg] Tawny López [facility] 12/18/2024 09:43:45 Date Recorded Body height Body mass index (BMI) Body weight Systolic And Diastolic Provider Name and Address Organization Details Last Updated DateTime 04/06/2021 165.1 cm 31.3 kg/m2 04050.37 g 112/71 mm[Hg] Arleen [facility] 04/06/2021 14:07:43 Date Recorded Body height Body mass index (BMI) Body weight Systolic And Diastolic Provider Name and Address Organization Details Last Updated DateTime 05/02/2021 165.1 cm 32.6 kg/m2 71843.1 g 115/71 mm[Hg] [facility] 05/02/2021 12:49:35 Social History Question Answer Notes LastModified by Organizat ion Details LastModified Time Tobacco Smoking Status Never Smoker [facility] 05/02/2021 12:08:51 Do You Have An Advance Directive? No Information n ot available 02/08/2021 How Many Years Have You Consumed Alcohol? 10 Information not available 02/08/2021 Are You Blind Or Do You Have Difficulty Seeing? No Information n ot available 02/08/2021 What Is Your Level Of Caffeine Consumption? Occasional Information not available 06/16/2020 How Much Tobacco Do You Chew? None Information not available 02/08/2021 In The 14 Days Before Symptom Onset, Have You Had Close Contact With A Laboratory-confirm ed COVID-19 While That Case Was Ill? No Information n ot available 02/08/2021 In The 14 Days Before Symptom Onset, Have You Had Close Contact With A Person Who Is Under Investigation For COVID-19 While That Person Was Ill? No Information not available 02/08/2021 Have You Been To An Area Known To Be High Risk For COVID-19? No Information not available 02/08/2021 Are You Deaf Or Do You Have Serious Difficulty Hearing? No Information not available 02/08/2021 What Type Of Diet Are You Following? REGULAR Information n ot available 02/08/2021 Which Illicit Or Recreational Drugs Have You Used? Marijuana [email or web address] Information not available 05/02/2021 What Is The Highest Grade Or Level Of School You Have Completed Or The Highest Degree You Have Received? [id number] Information not available 02/08/2021 Are There Any Guns Present In Your Home? No Information not available 02/08/2021 Have You Ever Been Counseled For Unhealthy Alcohol Use? No [email or web address] Information not available 05/02/2021 Do You Use Protection During Sex? No Information not available 02/08/2021 Do You Use Your Seat Belt Or Car Seat Routinely? Yes Information not available 02/08/2021 Do You Have Smoke And Carbon Monoxide Detectors In Your Home? Yes Information not available 02/08/2021 How Much Tobacco Do You Smoke? No Information not available 02/08/2021 Do You Use Sunscreen Routinely? No Information not available 02/08/2021 Have You Used IV Drugs? No Information not available 06/16/2020 Do You Have Difficulty Walking Or Climbing Stairs? No [email or web address] Information not available 11/19/2023 Sex: Unknown Functional Status Question Answer Note LastModified by Organizat ion Details LastModified Time Do you use any illicit or recreational drugs? Yes [email or web address] Information not available 11/19/2023 Do you or have you ever used any other forms of tobacco or nicotine? No [email or web address] Information not available 05/02/2021 What is your level of alcohol consumption? Occasional Information not available 06/16/2020 Are you able to walk independently without assistance or assistive devices? [email or web address] Information not available 02/08/2021 Are you able to care for yourself independently? 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 No [email or web address] Information not available 11/19/2023 What is your exercise level? Occasional Information not available 06/16/2020 Mental Status Question Answer Note LastModified by Organization D etails LastModified Time Do you feel stressed (tense, restless, nervous, or anxious, or unable to sleep at night)? [id number] [email or web address] Information not available 11/19/2023 Family History Relationship Description Onset Age of this Age Resolved Age Notes LastModified by Organization Details LastModified Time Mother Disorder of thyroid gland Not available 2020 15:36:00 Maternal Aunt Asthma Not dixie ilable 06/16/2020 15:36:00 Unspecified Relation Family history of Hypertension [email or web address] Not available 0 12/18/2024 09:35:59 Medical History Condition Response Asthma Y Gynecological History Statement/Question Response Date of LMP 03/01/2021 On BCP's at Conception? N N Was last menstrual period normal Y STIs/STDs N HPV Vaccine N Duration of Flow (days) 8 Current Control Method Hysterectom y Age at First Child 18 Sexually Active? Y Age of first menstrual cycle 11 Date of Last Pap Smear 11/19/2023 Sexual Problems? N Desired Control Method Sterilizati on LMP Definite N Obstetrics History GPAL:G 3 P 3 0 0 3 Type Value Full Term 3 Living 3 Total 3 Past Encounters Encounter ID Performer Location Encounter Start Date Encounter Closed Date Diagnosis/Indication Diagnosis SNOMED-CT Code Diagnosis ICD10 Code Diagnosis IMO Codes Diagnosis Note Frederick Ibarra MD [facility] [address] [address] 02/18/2020 17:58:04 02/18/2020 18:37:01 Pain in pelvis 95350263 R10.2 [id number] Frederick Ibarra MD [facility] [address] [address] 05/19/2020 17:22:54 05/19/2020 18:02:32 Menorrhagia 549682551 N92.0 this patient is a 30-year-ol d female with severe menorrhagi a and pelvic pain. She has Essure coils. She has tried medical therapy for pelvic pain. For the pelvic pain and menorrhagi a refractory to oral contracept martine pills. She has not tolerated them well also. She is certain that the pain is associated with the Essure coils. Symptomati dillon this seems accurate. We have agreed to remove the Essure coils. She would like to do endometria l ablation after I explained the treatment option to her. We spent over 15 minutes face-to-fa ce. More than 50% of that was counseling . She will return for the informed consent process. We will move forward with hysterosco py and endometria l ablation along with laparoscop ic bilateral salpingect leif for Essure pain. Pelvic and perineal pain 784783662 R10.2 [id number] Frederick Ibarra MD [facility] [address] [address] 06/16/2020 14:52:23 06/16/2020 15:52:48 Pain in pelvis 49905955 R10.2 N92.0 [id number] Frederick Ibarra MD [facility] [address] [address] 06/16/2020 14:52:45 06/16/2020 16:21:43 Menorrhagia 353990351 N92.0 Pain in pelvis 07329617 R10.2 N92.0 this patient is a 30-year-ol d female with severe menorrhagi a And pelvic pain. We have agreed to perform endometria l ablation with hysterosco py and laparoscop ic bilateral salpingect leif for removal of Essure coils. She understand s the risks, benefits, and alternativ es. She has completed the informed consent process and is ready to proceed. [id number] MD Christi Amaral [address] [address] 06/22/2020 09:55:44 06/22/2020 10:33:53 [id number] Frederick Ibarra MD [facility] [address] [address] 06/25/2020 12:13:23 06/27/2020 14:50:22 Postoperative care [id number] Z48.89 This patient is a 30-year-ol d female presents forpostopf ollow-up. She had a laparoscop ic bilateral tubal ligation and an endometria l ablation.S he is recovering normally. She has some watery vaginal discharge that is absent of odor.Incis ions are clean dry and intact.She will follow up as needed. [id number] Frederick Ibarra MD [facility] [address] [address] 02/08/2021 09:53:24 02/08/2021 10:54:31 Menorrhagia [id number] N92.0 this patient is a 30-year-ol d female who presents for abnormal uterine bleeding. She is status post endometria l ablation. She had the ablation approximat jeremías 9 months ago. She has continued to bleed heavily. Her bleeding affects her quality of life and activities daily living. She has previously failed other medical therapies. We reviewed all medical therapies today. We also discussed definitive surgical treatment. We agreed to proceed with total laparoscop ic hysterecto my. I discussed the procedure with her in detail. She understand s the procedure and is ready to go forward With total laparoscop ic hysterecto my. we have made the decision today to move forward with major surgery. [id number] MD Christi Amaral [address] [address] 03/28/2021 09:28:10 03/28/2021 10:39:36 Menorrhagia 774411807 N92.0 this patient is a 30-year-ol d female with severe menorrhagi a who has failed an endometria l ablation. We agreed to perform total laparoscop ic hysterecto my. She understand s the risks, benefits, and alternativ es. She has completed the informed consent process and is ready to proceed. [id number] Frederick Ibarra MD [facility] [address],[place] [address] 04/01/2021 09:39:41 04/01/2021 09:40:55 [id number] Frederick Ibarra MD [facility] [address],[place] [address] 04/06/2021 14:01:59 04/06/2021 14:24:40 Postoperative care [id number] Z48.89 this patient is a 30-year-ol d female who presents for post operative follow-up. She is 1 week postop from a total laparoscop ic hysterecto my. She has no complaints . Her incisions are clean dry and intact. We reviewed the pathology and op report together. her incisions are clean dry and intact. She will follow-up for well-woman exam in the next couple of months. [id number] Frederick Ibarra MD [facility] [address],[place] [address] 05/02/2021 12:08:28 05/02/2021 13:08:09 Gynecologic examination [id number] Z01.419 This patient is here for her annual exam. A thorough history was taken. A physical exam was performed. Age appropriat e routine health screening was ordered, performed, and discussed. Recommende d testing was ordered. She was asked to follow up in one year. She will be informed of any test results. Cholestero l - today Pap - today [id number] Frederick Ibarra MD [facility] [address],[place] [address] 11/19/2023 14:34:36 11/19/2023 15:51:41 Vulvovaginitis [id number] N76.0 Gynecologi c examination [id number] Z01.419 Z11.51 This patient is here for her annual exam. A thorough history was taken. A physical exam was performed. Age appropriat e routine health screening was ordered, performed, and discussed. Recommende d testing was ordered. She was asked to follow up in one year. She will be informed of any test results. Cholestero l - today Pap - today [id number] ANTONY Vela [facility] [address] [address] 12/18/2024 09:35:45 12/18/2024 11:19:31 Gynecologic examination [id number] Z01.749 [id number] WWEPap - done todaySTI screen - declinedRo utine labs - orderedRTC in 1 yr or sooner if needed It is strongly advised to have an annual flu shot and up can obtain at most pharmacies . If you have not had a TDap shot in the last 10 years you should obtain one as well. Discussed with patient & provided with informatio n regarding the HPV vaccine if applicable . Encourage safe sexual practices, to use condoms and limit partners if not already in a monogamous relationsh ip. Do monthly self breast exams. BRCA testing is now available for patients with strong genetic history of female cancer. If interested contact the office. Engage in regular exercise. Avoid tobacco and illicit drugs. This lifestyle behavior pattern will lead to less health conditions and longer life span. If BMI greater than 25 dietary consult advised. Questions answered. Adult heal th examination [id number] Z00.00 [id number] External hemorrhoids 239 [id number] K64.4 09247 Referral to colorectal surgery placeddisc ussed increase water/fibe r to avoid constipati on Health Concerns Section Related Observation LastModified by Organization Detai ls LastModified Time None Recorded Concern Status LastModified by Organization Details LastModified Time None Recorded Advance Directives Directive N: Payers Insurance Date Sequence Insurance Name Policy Number Policy Kohler Covered Member ID Kohler Member ID Guarantor Name 02/18/2020 1 *SELF PAY* Ramon 12/15/2024 1 [facility] [id number] Oseas Farooq [id number] Milagros Herbert 12/15/2024 2 [place] [facility] Milagros Herbert [id number] Milagros Herbert Notes Date Note Type Note Provider Name and Address Organization Details Recorded Time 04/06/20 21 text/htm l this patient is a 30-year-old female who presents for post operative follow-up. She is 1 week postop from a total laparoscopic hysterectomy. She has no complaints. Her incisions are clean dry and intact. We reviewed the pathology and op report together. her incisions are clean dry and intact. She will follow-up for well-woman exam in the next couple of months. Frederick Ibarra MD [address], [place], [address], [facility] 04/06/2021 14:23:18 05/02/20 21 text/htm l Annual GYNReported by PatientHistoryFor history, patient reportsno gynecologic complaints.Genitourinary symptomsFor urinary symptoms, patient reportsno hematuriaandno incontinence. For vulva, patient reportsno genital lesion. For vagina, patient reportsnormal vaginal discharge. For menstrual cycle, (no uterus).Breast symptomsFor breast, patient reportsno breast pain,no breast lump, andno nipple discharge.Endocrine symptomsFor sexual complaints, patient reportsno sexual complaintsandno pain during intercourse. For menopausal symptoms, patient reportsno menopausal symptoms.Psychological symptomsFor psychological symptoms, patient reportsno depressionandno anxiety.Preventative measuresFor preventive measures, patient reportsencourage self breast examinationandencourage regular exercise. Frederick Ibarra MD [address], [place], [address], [facility] 05/02/2021 13:08:05 11/19/19 24 text/htm l Annual GYNReported by PatientHistoryFor history, (white vaginal discharge, clumpy).Genitourinary symptomsFor vagina, patient reportswhite. For urinary symptoms, patient reportsno hematuriaandno incontinence. For vulva, patient reportsno genital lesion.Breast symptomsFor breast, patient reportsno breast painandno breast lump.Endocrine symptomsFor sexual complaints, patient reportsno sexual complaintsandno pain during intercourse. For menopausal symptoms, patient reportsno menopausal symptoms.Psychological symptomsFor psychological symptoms, patient reportsno depressionandno anxiety.Preventative measuresFor preventive measures, patient reportsencourage self breast examinationandencourage regular exercise. Frederick Ibarra MD [address], [place], [address], [facility] 11/19/2023 15:29:08 12/19/19 25 text/htm l Annual GYNReported by PatientGenitourinary symptomsFor urinary symptoms, patient reportsno hematuriaandno incontinence. For vulva, patient reportsno genital lesion. For vagina, patient reportsnormal vaginal discharge. For menstrual cycle, (hyst).Breast symptomsFor breast, patient reportsno breast pain,no breast lump, andno nipple discharge.ContraceptionFor current contraception, (hyst).Endocrine symptomsFor sexual complaints, patient reportsno sexual complaints,no pain during intercourse, andnormal libido. For menopausal symptoms, patient reportsno menopausal symptomsandnormal vaginal lubrication.Psychological symptomsFor psychological symptoms, patient reportsno depression,no anxiety, andno pmdd.Preventative measuresFor preventive measures, patient reportsencourage self breast examination,encourage regular exercise,encourage no tobacco use, andencourage regular mammograms starting age 40.35yo [id number] TLH, BS for AUB/non-cancerous indicationspap 11/2023 : nilm, HPV (-)no abnormal pap hx external hemorrhoids since last in 2014, wants to discuss treatment options ANTONY Vela [address], [place], [address], [facility] 12/18/2024 11:14:43 OBGyn Episode Ob Episode Information Episode Created Date Number of Fetuses Patient Bloodtype Patient rh Status Prepregnancy Weight lbs Domestic Partner Domestic Partner Phone Father Name Gas Engine Operator Generators Status 02/18/20 20 1 CLOSED Fetus Data First Name Last Name Admitted to NICU Weight (g) Sex Living Outcome Pediatric Complications Fetus ID Race Codes Race Delivery Type 2863.07 2704 M Full Term 4570 Vaginal Delivery Pato Calculation Initial Pato Date Initial Exam Date Initial Exam Provider Initial Ultrasound Date Last Menstrual Period Date Ultra Sound Weeks Gestation 0 Eighteen To Twenty Week Pato Update Ultra Sound Date Fundal Height At Umbil Quickening Date Ultra Sound Latest Weeks Gestation Final Pato Confirmed By Final Pato Confirmed Date Final Pato Date Ultra Sound Latest Days Gestation 0 0 Menstrual History Last Menstrual Date Menses Monthly On Bcp Conception Prior Menses Frequency Hcg Plus Date Menarche Onset Age Delivery Information Delivery Date Delivery Type Labor Anesthesia Weeks Gestation Incision Type Labor Labor Length Hrs Delivered By Post Complications Tubal Sterilization Discharge Date Comments 9 Discharge Information Feeding Method Contraceptive Method Maternal HG B and HCT Levels Ob Episode Information Episode Created Date Number of Fetuses Patient Bloodtype Patient rh Status Prepregnancy Weight lbs Domestic Partner Domestic Partner Phone Father Name Gas Engine Operator Generators Status 02/18/20 20 1 CLOSED Fetus Data First Name Last Name Admitted to NICU Weight (g) Sex Living Outcome Pediatric Complications Fetus ID Race Codes Race Delivery Type 3146.56 7704 F Full Term 4572 Vaginal Delivery Pato Calculation Initial Pato Date Initial Exam Date Initial Exam Provider Initial Ultrasound Date Last Menstrual Period Date Ultra Sound Weeks Gestation 0 Eighteen To Twenty Week Pato Update Ultra Sound Date Fundal Height At Umbil Quickening Date Ultra Sound Latest Weeks Gestation Final Pato Confirmed By Final Pato Confirmed Date Final Pato Date Ultra Sound Latest Days Gestation 0 0 Menstrual History Last Menstrual Date Menses Monthly On Bcp Conception Prior Menses Frequency Hcg Plus Date Menarche Onset Age Delivery Information Delivery Date Delivery Type Labor Anesthesia Weeks Gestation Incision Type Labor Labor Length Hrs Delivered By Post Complications Tubal Sterilization Discharge Date Comments 5 Mary Discharge Information Feeding Method Contraceptive Method Maternal HG B and HCT Levels Ob Episode Information Episode Created Date Number of Fetuses Patient Bloodtype Patient rh Status Prepregnancy Weight lbs Domestic Partner Domestic Partner Phone Father Name Gas Engine Operator Generators Status 02/18/20 20 1 CLOSED Fetus Data First Name Last Name Admitted to NICU Weight (g) Sex Living Outcome Pediatric Complications Fetus ID Race Codes Race Delivery Type 3572.03 7 M Full Term 4571 Vaginal Delivery Pato Calculation Initial Pato Date Initial Exam Date Initial Exam Provider Initial Ultrasound Date Last Menstrual Period Date Ultra Sound Weeks Gestation 0 Eighteen To Twenty Week Pato Update Ultra Sound Date Fundal Height At Umbil Quickening Date Ultra Sound Latest Weeks Gestation Final Pato Confirmed By Final Pato Confirmed Date Final Pato Date Ultra Sound Latest Days Gestation 0 0 Menstrual History Last Menstrual Date Menses Monthly On Bcp Conception Prior Menses Frequency Hcg Plus Date Menarche Onset Age Delivery Information Delivery Date Delivery Type Labor Anesthesia Weeks Gestation Incision Type Labor Labor Length Hrs Delivered By Post Complications Tubal Sterilization Discharge Date Comments 1 dystocia Discharge Information Feeding Method Contraceptive Method Maternal HG B and HCT Levels
--- OUTSIDE RECORDS SUMMARY | 2025-05-04 10:24 | XMS_ITS | Clinical Summary ---
Author Organization [facility] Health Address [address] [place] [address] Care Team Providers Care Community Service Director Name Role Phone Unavailable Primary Care Provider Unavailabl e Source Comments [facility],non-owned Affiliates and Associated Physician Practices is amultiple site organization consisting of ambulatory clinics and hospital sitesin [place], [place], [place] and [place]. This disclosure is being madepursuant to the Care Everywhere program and may not contain all information available regarding this patient. Last updated 18.[facility] Allergies No known active allergies Encounters Date Type Department Care Team Description 03/31/2025 11:54 AM CDT - 03/31/2025 1:29 PM CDT Emergency [facility] [address] [place] [id number] Discharge Disposition: Left Against Medical Advice/Discontinued Care 03/31/2025 Travel from Last 3 Months Social History Tobacco Use Types Packs/Day Years Used Date Smoking Tobacco: Never Assessed Comments Unknown Sex and Gender Information Value Date Recorded Sex Assigned at Not on file Legal Sex Female 6:30 PM CONFIGURATION MANAGEMENT ADMINISTRATOR Gender Identity Not on file Sexual Orientation Not on file Last Filed Vital Signs Vital Sign Reading Time Taken Comments Blood Pressure 113/75 03/31/2025 10:11 AM CDT Pulse 70 03/31/2025 10:11 AM CDT Temperature 36.2 C (97.2 F) 03/31/2025 10:11 AM CDT Respiratory Rate 16 03/31/2025 10:11 AM CDT Oxygen Saturation 99% 03/31/2025 10:11 AM CDT Inhaled Oxygen Concentration - - Weight 90.7 kg (200 lb) 03/31/2025 9:02 AM CDT Height 167.6 cm (5' 6) 03/31/2025 9:02 AM CDT Body Mass Index 32.28 03/31/2025 9:02 AM CDT Plan of Treatment Health Maintenance Due Date Last Done Comments HIV SCREENING 2004 HEPATITIS C SCREENING 04/27/2007 DTAP/TDAP/TD VACCINES (1 - Tdap) 2008 HEPATITIS B VACCINE (1 of 3 - 19+ 3-dose series) 2008 HPV VACCINE (1 - 3-dose SCDM series) 2016 PAP with HPV 2019 DEPRESSION SCREENING 06/04/2024 COVID-19 VACCINE (1 - 2024-2 6 season) 2025 INFLUENZA VACCINE (#1) 2025 Cervical Cancer Screening 12/19/2027 PAP SMEAR 12/19/2027 12/18/2024, 12/18/2024 ZOSTER VACCINE (1 of 2) 2039 HIB VACCINE Aged Out No longer eligi ble based on patient's age to complete this topic MENINGOCOCCAL (Group B) VACCINE SHARED DECISION-MAKING Aged Out No longer eligible based on patient's age to complete this topic MENINGOCOCCAL GROUPS A/C/Y/W VACCINE Aged Out No longer eligible b ased on patient's age to complete this topic PNEUMOCOCCAL VACCINE Aged Out No long er eligible based on patient's age to complete this topic Insurance MEDICAID - OUT OF STATE Member Subscriber Plan / Payer (Ef fective 2007-Present) Name:Milagros Dover Relation to Subscriber:Self Name:MILAGROS DOVER Payer ID:Not on file Group ID:Not on file Type:Medicaid Address: [address]
--- OUTSIDE RECORDS SUMMARY | 2025-05-04 10:24 | XMS_ITS | Clinical Summary ---
Author Organization [facility] Address [address] [place] [address] Care Team Providers Care Cad Developer Name Role Phone Van Wong MD Primary Care Provider [phone] Olga Zendejas CASH VAN SALESPERSON Unavailable [phone] Allergies No known active allergies Medications diclofenac DR (VOLTAREN) 75 mg EC tablet diclofenac sodium 75 mg tablet,delayed release Active lidocaine (XYLOCAINE) 10 mg/mL (1 %) injection lidocaine (PF) 10 mg/mL (1 %) injection solution In office injection administered by the provider Active predniSONE (DELTASONE) 10 mg tablet 0 Active triamcinolone (KENALOG) 10 mg/mL injection Kenalog 10 mg/mL suspension for injection In office injection administered by the provider Active albuterol HFA (PROVENTIL HFA,VENTOLIN HFA,PROAIR HFA) 90 mcg/actuation inhaler Inhale 2 puffs every 6 (six) hours as needed for wheezing Active Active Problems Problem Noted Date Diagnosed Date Hemorrhoids 12/30/2024 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 There is no alteration or loss of consciousness. Alternate potential etiology would include simple partial seizures. An effort to exclude alternate etiologies to lukas facial spasm, I will pursue an MRI of the brain with and without contrast and EEG with hyperventilation photic stimulation. I will plan to see her back thereafter. If her studies are unrevealing, then she will likely need a tertiary referral for consideration of botulism toxin. Surgical History Surgery Date Site/Laterality Comments NO PAST SURGERIES HYSTERECTOMY Medical History Medical History Date Comments No pertinent past medical history Asthma Family History Medical History Relation Name Comments No Known Problems Father No Known Problems Mother Relation Name Status Comments Father Alive Mother Alive Social History Tobacco Use Types Packs/Day Years Used Date Smoking Tobacco: Never Smokeless Tobacco: Never Comments Unknown Sex and Gender Information Value Date Recorded Sex Assigned at Not on file Legal Sex Female 2:19 AM CLINICAL RESEARCH NURSE COORDINATOR Gender Identity Not on file Sexual Orientation Not on file Last Filed Vital Signs Vital Sign Reading Time Taken Comments Blood Pressure 125/77 12/30/2024 8:27 AM CDT Pulse 75 12/30/2024 8:27 AM CDT Temperature 36.1 C (97 F) 12/30/2024 8:27 AM CDT Respiratory Rate - - Oxygen Saturation 95% 12/30/2024 8:27 AM CDT Inhaled Oxygen Concentration - - Weight 92.7 kg (204 lb 4.8 oz) 12/30/2024 8:27 A M CDT Height 167.6 cm (5' 6) 12/30/2024 8:27 AM CDT Body Mass Index 32.97 12/30/2024 8:27 AM CDT Plan of Treatment Health Maintenance Due Date Last Done Comments Depression Screening 1989 Hepatitis C Screening 1989 DTaP/Tdap/Td Vaccine (1 - Tdap) 2000 Varicella Vaccines (1 of 2 - 13+ 2-dose series) 2002 Hepatitis B Screening 2007 Regular Well Visit/Exam 18-64 2007 HPV Vaccines (1 - 3-dose SCD M series) 2016 Influenza Vaccine (#1) 2025 Pneumococcal vaccine <65 Aged Out No longer eligible based on patient's age to complete this topic Insurance [facility] [employer] [facility] [employer] Care Teams Cad Developer Relationship Specialty Start Date End Date Van Wong MD PCP - General Internal Medicine 04/05/20 Olga Zendejas NP [address] [place] [address] Nurse Practitioner Obstetrics and Gynecology 12/19/24
--- OUTSIDE RECORDS SUMMARY | 2025-05-04 10:24 | XMS_ITS | Clinical Summary ---
Author Organization [facility] Address [address] [place] [id number] Care Team Providers Care Coating Mixer Name Role Phone Van Wong MD Primary Care Provider [phone] Allergies No known active allergies Medications No known medications Encounters Date Type Department Care Team Description 04/05/2025 11:29 AM QA AUTOMATION ARCHITECT - 04/05/2025 12:33 PM QA AUTOMATION ARCHITECT Emergency [facility] [place] [address] Baldo Lorenzo, GLEN Blood In Stool Discharge Disposition: Home or Self Care (Routine Discharge) 04/05/2025 Travel from Last 3 Months Social History Tobacco Use Types Packs/Day Years Used Date Smoking Tobacco: Never Smokeless Tobacco: Never Tobacco Cessation:Counseling Given: Not Answered Comments Unknown Sex and Gender Information Value Date Recorded Sex Assigned at Female 04/05/2025 11:29 AM QA AUTOMATION ARCHITECT Legal Sex Female 7:05 PM CDT Gender Identity Not on file Sexual Orientation Not on file Last Filed Vital Signs Vital Sign Reading Time Taken Comments Blood Pressure 129/96 04/05/2025 11:28 AM QA AUTOMATION ARCHITECT Pulse 86 04/05/2025 11:28 AM QA AUTOMATION ARCHITECT Temperature 36.6 C (97.9 F) 04/05/2025 11:28 AM QA AUTOMATION ARCHITECT Respiratory Rate 16 04/05/2025 11:28 AM QA AUTOMATION ARCHITECT Oxygen Saturation 98% 04/05/2025 11:28 AM QA AUTOMATION ARCHITECT Inhaled Oxygen Concentration - - Weight 90.7 kg (200 lb) 04/05/2025 11:28 AM QA AUTOMATION ARCHITECT Height 167.6 cm (5' 6) 04/05/2025 11:28 AM QA AUTOMATION ARCHITECT Body Mass Index 32.28 04/05/2025 11:28 AM QA AUTOMATION ARCHITECT Plan of Treatment Health Maintenance Due Date Last Done Comments Annual Physical 1992 Hepatitis C 2007 DTaP, Tdap and Td Vaccines ( 1 - Tdap) 2008 Hepatitis B Vaccines (1 of 3 - 19+ 3-dose series) 2008 HPV Vaccines (1 - 3-dose SCD M series) 2016 COVID-19 Vaccine (1 - 2024-2 6 season) 2025 Influenza Adult (#1) 2025 Hepatitis A Vaccines Aged Out No long er eligible based on patient's age to complete this topic Meningococcal B Vaccine Aged Out No l onger eligible based on patient's age to complete this topic Meningococcal Vaccine Aged Out No evette donn eligible based on patient's age to complete this topic Pneumococcal Vaccine: Pediat rics (0 to 5 Years) and At-Risk Patients (6 to 49 Years) Aged Out No longer eligible b ased on patient's age to complete this topic RSV Immunizations Under 20 Months Aged Out No longer eligible based on patient's age to complete this topic Procedures Procedure Name Priority Date/Time Associated Diagnosis Comments HC OCCULT BLOOD FECAL DIAG STAT 04/05/2025 11:37 AM QA AUTOMATION ARCHITECT HC BASIC METABOLIC PANEL STAT 04/05/2025 11:37 AM QA AUTOMATION ARCHITECT HC CBC AUTO W/AUTO DIFF STAT 04/05/2025 11:37 AM QA AUTOMATION ARCHITECT from Last 3 Months Results * OCCULT BLOOD, FECES (04/05/2025 11:37 AM QA AUTOMATION ARCHITECT) OCCULT BLOOD FECAL NEGATIVE NEGATIVE 04/05/2025 12:17 PM QA AUTOMATION ARCHITECT [facility] STOOL SPECIMEN / Unknown 04/05/2025 11:37 AM QA AUTOMATION ARCHITECT us Baldo Lorenzo CONSULTING MANAGER BODY FLUIDS AND STOOLS ORDERAB LES Final Result [facility] [address] [place] [address], [place] [phone] * (ABNORMAL) BASIC METABOLIC PANEL (04/05/2025 11:37 AM [facility]) [facility] GLUCOSE 99 70 - 99 MG/DL 04/05/2025 12:11 PM [facility] BUN 11 7 - 18 MG/DL 04/05/2025 12:11 PM [facility] CREATININE S/P/B 0.78 0.55 - 1.02 MG/DL 04/05/2025 12:11 PM [facility] SODIUM S/P/B 138 136 - 145 MMOL/L 04/05/2025 12:11 PM [facility] POTASSIUM S/P/B 3.9 3.5 - 5.1 MMOL/L 04/05/2025 12:11 PM [facility] CHLORIDE S/P/B 107 97 - 115 MMOL/L 04/05/2025 12:11 PM [facility] CO2 29.7 21 - 32 MMOL/L 04/05/2025 12:11 PM [facility] CALCIUM S/P/B 9.3 8.5 - 10.1 MG/DL 04/05/2025 12:11 PM [facility] ANION GAP 1.3(L) 2 - 10 MMOL/L 04/05/2025 12:11 PM [facility] BUN CREATININE RATIO 14.0 6 - 26 04/05/2025 12:11 PM [facility] GFR ESTIMATE >90 >90 ML/MIN/1.7 3 M2 04/05/2025 12:11 PM [facility] Comment: NOTE: eGFR is not calculated for patients <18 years of age or gender unknown. This is an estimated GFR calculation using the new CKD EPI creatinine equation without race and so does not require a correction factor for race. This estimated GFR should not be used for calculating drug doses. 04/05/2025 11:3 7 AM QA AUTOMATION ARCHITECT Nael Mccormick PA-C LABORATORY Final Resul t [facility] [address] [place] [address], * CBC W/DIFF AUTOMATED (04/05/2025 11:37 AM QA AUTOMATION ARCHITECT) WBC 6.40 4.5 - 11.0 x10'3/uL 04/05/2025 11:49 AM [facility] RBC 4.51 4.20 - 5.40 x10'6/uL 04/05/2025 11:49 AM [facility] HGB 13.4 12.0 - 16.0 G/DL 04/05/2025 11:49 AM [facility] HCT 39.3 38.0 - 48.0 % 04/05/2025 11:49 AM [facility] MCV 87.1 81.0 - 99.0 FL 04/05/2025 11:49 AM [facility] MCH 29.7 27.0 - 31.0 PG 04/05/2025 11:49 AM [facility] MCHC 34.1 32.0 - 36.0 G/DL 04/05/2025 11:49 AM [facility] RDW 11.8 11.5 - 14.5 % 04/05/2025 11:49 AM [facility] PLT 226 130 - 400 x10'3/uL 04/05/2025 11:49 AM [facility] MPV 10.1 9.3 - 12.2 FL 04/05/2025 11:49 AM [facility] DIFFERENTIAL TYPE AUTOMATED DIFFERENTIAL 04/05/2025 11:49 AM [facility] NEUTROPHILS % 56.4 % 04/05/2025 11:49 AM [facility] LYMPHOCYTES % 34.8 % 04/05/2025 11:49 AM [facility] MONOCYTES % 7.7 % 04/05/2025 11:49 AM [facility] EOSINOPHILS 0.6 % 04/05/2025 11:49 AM [facility] BASOPHILS 0.2 % 04/05/2025 11:49 AM [facility] IMMATURE GRANS % 0.3 % 04/05/20 11:49 AM [facility] ABS. NEUTROPHILS 3.61 1.80 - 7.70 x10'3/uL 04/05/2025 11:49 AM [facility] ABS. LYMPHOCYTES 2.23 1.00 - 4.80 x10'3/uL 04/05/2025 11:49 AM [facility] ABS. MONOCYTES 0.49 0.24 - 0.86 x10'3/uL 04/05/2025 11:49 AM [facility] ABS. EOSINOPHILS 0.04 0.04 - 0.36 x10'3/uL 04/05/2025 11:49 AM [facility] ABS. BASOPHILS 0.01 0.01 - 0.08 x10'3/uL 04/05/2025 11:49 AM [facility] ABS. IMMATURE GRANULOCYTES 0.02 0.00 - 0.49 x10'3/uL 04/05/2025 11:49 AM [facility] 04/05/2025 11:3 7 AM QA AUTOMATION ARCHITECT us Nael Mccormick PA-C LABORATORY Final Resul t [facility] [address] [place] [address], [place] [phone] from Last 3 Months Insurance [facility] Care Teams Coating Mixer Relationship Specialty Start Date End Date Van Wong MD [address] [place] [address] PCP - General INTERNAL MEDICINE 04/05/25
--- NOTE | 2025-05-04 10:26 | WPDANESPN ---
Anes - Prog Note Post-Op Date/Time: 05/04/25 10:26 Vital Signs: Last Vital Signs Temp 97.5 F L 05/04/25 09:56 Pulse 74 05/04/25 09:56 Resp 16 05/04/25 09:56 BP 117/83 05/04/25 09:56 Pulse Ox 99 05/04/25 09:56 O2 Del Method Room Air 05/04/25 09:56 Pain Score (VAS): no Patient Feedback: Patient satisfied with anesthetic care.
--- NOTE | 2025-05-04 10:28 | P.HP_ITS ---
H&P: HPI History of Present Illness Date/Time: 05/04/25 10:28 Chief Complaint: GERD - Rectal bleeding * Narrative: This patient has been experiencing intermittent episodes of rectal bleeding for about 1 month, bright red type, not associated with lower abdominal pain or change in bowel habits. In addition she endorses a period of 2 weeks with epigastric pain, sharp type associated with heartburn. This is not associated with vomiting nausea or dysphagia. She is now referred for EGD and colonoscopy. Review of Systems Review of Systems: All systems reviewed & are unremarkable except as noted in HPI and below PMFSH Past Medical History Medical History Obesity Asthma Surgical History Surgical History History of hysterectomy Social History Social History Smoking status: Never smoker Alcohol intake: current Alcohol use details: occ Substance use: current Substance use type: marijuana Other substance usage details: daily Last use: 03/23/21 Lack of Transportation: No Lack of Food: Never True Current Housing: I Have Housing Concerned About Future Housing: No Difficulty Paying Gas/Electric Bills: No Difficulty Paying for Meds: No Currently Unemployed: No Education: High School Diploma/GED Difficulty w/ Childcare or Family Care: No Living arrangements: with family Spiritual care concerns: No Meds Home Medications and Allergies Home Medications ?Medication ?Instructions ?Recorded ?Confirmed ?Type albuterol 90 mcg/actuation aerosol 90 mcg inhalation P RN PRN 06/11/20 05/04/25 History inhaler Shortness Of Breath hyoscyamine sulfate 0.125 mg 0.125 mg PO .every 6 hour s PRN 04/28/25 05/04/25 Rx tablet (Levsin) abdominal pain #120 tabs Allergies Allergy/AdvReac Type Severity Reaction Status Date / Time No Known Allergies Allergy Unknown Verified 05/04/25 09:45 Vital Signs Vital Signs - 24 hr 05/04/25 09:56 Temperature 97.5 F L Pulse Rate 74 Respiratory Rate 16 Blood Pressure 117/83 Pulse Oximetry 99 Oxygen Delivery Room Air Exam Const: General: cooperative and healthy appearing Resp: Effort & Inspection: normal respiratory effort and able to speak in complete sentences Auscultation: clear to auscultation bilaterally Cardio: Rate: regular rate Rhythm: regular rhythm GI: Inspection: normal to inspection GI Palp: No No hepatosplenomegaly present Auscultation: normal bowel sounds Rectal Exam: deferred Skin: General skin exam: normal color Psych: Appearance: grossly normal Mental Status: mental status grossly normal Assessment and Plan Assessment and plan (1) PRB (rectal bleeding): Code(s): K62.5 - Hemorrhage of anus and rectum Status: Acute (2) GERD (gastroesophageal reflux disease): Code(s): K21.9 - Gastro-esophageal reflux disease without esophagitis Status: Acute Assessment and Plan: The patient is deemed a good candidate for the procedure. Consent signed. Will proceed. has
--- NOTE | 2025-05-04 10:42 | SUR.OPER ---
EGD ended at 1036, Colon began at 1042
[2025-05-04 10:54] VITALS: BP 113/80; PULSE 80; RESP 15; O2SAT 100
[2025-05-04 11:04] VITALS: BP 119/82; PULSE 65; RESP 16; O2SAT 100
[2025-05-04 11:14] VITALS: BP 115/73; PULSE 65; RESP 16; O2SAT 100
== END 2025-05-04 11:41 | disposition home or self-care (01) ==
PROVIDERS: PCP Internal Medicine; Referring Provider Nurse Practitioner; Visit Provider Internal Medicine Gastroenterology
PROC: 0DJ08ZZ Inspection of Upper Intestinal Tract, Via Natural or Artificial Opening Endoscopic (ICD-10-PCS; CPT 45378; principal; 2025-05-04 11:00)
DX: K62.5 Hemorrhage of anus and rectum (principal); K64.8 Other hemorrhoids; K21.9 Gastro-esophageal reflux disease without esophagitis; K44.9 Diaphragmatic hernia without obstruction or gangrene
CPT/HCPCS: 45378; 43239